=== PATIENT | female | born 1985 | race Two or more races ===

== ENCOUNTER 2025-02-11 19:26 | Inpatient (IN) | payer OTHER ==
[~2025-02-11] VITALS: Ht 154.9 cm; Wt 77.3 kg
--- NOTE | 2025-02-11 19:56 | ED.PDOC ---
History of Present Illness HPI Comments 39-year-old female with a history of insulin dependent diabetes, hypertension and Charcot joints brought in by self for evaluation of fever since this morning. Patient presents complaining of right foot pain, redness, bruising, onset yesterday. She denies any recent trauma. She states she has a history of Charcot joints in both feet and a chronic right foot deformity characterized by a masslike protrusion on the plantar surface of the right foot. Patient states that since yesterday, this area has become more painful, and she noticed a small area of black discoloration adjacent to the mass. Patient states the pain in her foot radiates up to the right groin area. Patient denies any recent trauma to her foot. She denies any sick contacts, URI symptoms, abdominal pain, nausea , vomiting, diarrhea or dysuria. Chief Complaint: Fever Time Seen by MD: 19:56 Reviewed Notes: Nurses Notes Allergies: Coded Allergies: NO KNOWN ALLERGIES (Unverified , 02/11/25) Home Meds Unable to Obtain Active Prescriptions or Reported Meds Information Source: Patient Mode of Arrival: Ambulatory Severity: Moderate Timing: Days Duration: Intermittent Past Medical History PAST MEDICAL HISTORY: DM, HTN Past Medical History (Other): Charcot joint bilateral feet Surgical History: Appendectomy NEUROPSYCHOLOGY MEDICAL CONSULTANT History: Denies all NEUROPSYCHOLOGY MEDICAL CONSULTANT Hx Family History Family History: Reviewed,noncontributory to illness Social History Smoker: Non-Smoker Alcohol: Denies ETOH Use Drugs: Denies Drug Use Lives In: Home Constitutional: reports: chills, fever; denies: diaphoresis, fatigue, malaise, sweats, weakness, others EENTM: denies: blurred vision, double vision, ear bleeding, ear discharge, ear drainage, ear pain, ear ringing, eye pain, eye redness, hearing loss, mouth pain, mouth swelling, nasal discharge, nose bleeding, nose congestion, nose pain, photophobia, tearing, throat pain, throat swelling, voice changes, others Respiratory: denies: cough, hemoptysis, orthopnea, SOB at rest, shortness of breath, SOB with excertion, stridor, wheezing, others Cardiovascular: denies: chest pain, dizzy spells, diaphoresis, Dyspnea on exertion, edema, irregular heart beat, left arm pain, lightheadedness, palpitations, PND, syncope, others Gastrointestinal: denies: abdomen distended, abdominal pain, blood streaked bowels, constipated, diarrhea, dysphagia, difficulty swallowing, hematemesis, melena, nausea, poor appetite, poor fluid intake, rectal bleeding, rectal pain, vomiting, others Genitourinary: denies: abnormal vagina bleeding, burning, dyspareunia, dysuria, flank pain, frequency, hematuria, incontinence, pain, , vagina discharge, urgency, others Neurological: denies: dizziness, fainting, headache, left sided numbness, left sided weakness, numbness, paresthesia, pre-existing deficit, right sided numbness, right sided weakness, seizure, speech problems, tingling, tremors, weakness, others Musculoskeletal: reports: muscle pain (Right leg), others (Bilateral foot pain); denies: back pain, gout, joint pain, joint swelling, muscle stiffness, neck pain Integumetry: denies: bruises, change in color, change in hair/nails, dryness, laceration, lesions, lumps, rash, wounds, others Allergic/Immunocompromised: denies: Difficulty Healing, Frequent Infections, Hives, Itching, others Hematologic/Lymphatic: denies: anemia, blood clots, easy bleeding, easy bruising, swollen glands, others Endocrine: denies: excessive hunger, excessive sweating, excessive thirst, excessive urination, flushing, intolerance to cold, intolerance to heat, unexplained weight gain, unexplained weight loss, others Psychiatric: denies: anxiety, bipolar disorder, depression, hopeless, panic disorder, schizophrenia, sleepless, suicidal, others Physical Exam General Appearance: No Apparent Distress, Obese HEENT: Other Neck: Full Range of Motion, Normal Inspection Respiratory: Lungs Clear, No Accessory Muscle Use, No Respiratory Distress, Normal Breath Sounds Cardiovascular: No JVD, Regular Rate/Rhythm Breast Exam: Deferred Gastrointestinal: Non Tender, Soft Genitalia: Deferred Pelvic: Deferred Rectal: Deferred Extremities: Other (Right foot chronic appearing plantar mass with surrounding mild erythema, tenderness and localized hematoma versus necrotic tissue at the lateral aspect. Mottling/bruising of the right medial ankle area with soft tissue tenderness.) Neurologic: Alert (Oriented x4), Normal Affect, Normal Mood, Other (Ambulatory) Cerebellar Function: NOT DONE Reflexes: NOT DONE Skin: Dry, Warm Lymphatic: NOT DONE Was a procedure done? Was a procedure done?: No Differential Dx Considerations may include: Foot cellulitis, abscess, osteomyelitis, pathologic fracture, DVT, sepsis, among others X-Ray, Labs, Meds, VS Vital Signs Date Time Temp Pulse Resp B/P (MAP) Pulse Ox O2 Delivery O2 Flow Rate FiO2 02/11/25 20:29 98.6 02/11/25 20:22 98.6 99 19 125/77 (93) 98 98.6 02/11/25 20:22 99 19 98 Room Air 02/11/25 19:35 99.5 109 18 133/82 (99) 98 99.5 Lab Test 02/11/25 19:58 02/11/25 19:37 02/11/25 19:35 Range/Units White Blood Count 9.5 4.4-10.8 10^3/uL Red Blood Count 3.95 L 4.0-5.20 10^6/uL Hemoglobin 11.6 L 12.2-16.2 g/dL Hematocrit 34.4 L 36.0-46.0 % Mean Corpuscular Volume 87.2 80.0-100.0 fL Mean Corpuscular Hemoglobin 29.4 28.0-32.0 pg Mean Corpuscular Hemoglobin Concent 33.7 32.0-36.0 g/dL Red Cell Distribution Width 13.6 11.8-14.3 % Platelet Count 275 140-450 10^3/uL Mean Platelet Volume 8.5 6.9-10.8 fL Neutrophils (%) (Auto) 87.2 H 37.0-80.0 % Lymphocytes (%) (Auto) 8.0 L 10.0-50.0 % Monocytes (%) (Auto) 4.1 0.0-12.0 % Eosinophils (%) (Auto) 0.4 0.0-7.0 % Basophils (%) (Auto) 0.3 0.0-2.0 % Neutrophils # (Auto) 8.3 1.6-8.6 10 ^3/uL Lymphocytes # (Auto) 0.8 0.4-5.4 10 ^3/uL Monocytes # (Auto) 0.4 0-1.3 10 ^3/uL Eosinophils # (Auto) 0 0-0.8 10 ^3/uL Basophils # (Auto) 0 0-0.2 10 ^3/uL Nucleated Red Blood Cells 0.0 % Prothrombin Time 10.4 9.3-11.8 sec Prothrombin Time INR 0.98 0.9-1.15 Activated Partial Thromboplast Time 28.3 24.5-34.5 SEC Sodium Level 140 136-145 mmol/L Potassium Level 4.3 3.5-5.1 mmol/L Chloride Level 107 98-107 mmol/L Carbon Dioxide Level 25 20-31 mmol/L Anion Gap 8 5-15 Blood Urea Nitrogen 27 H 9-23 mg/dL Creatinine 1.01 0.550-1.02 mg/dL Glomerular Filtration Rate Calc 72 >90 mL/min BUN/Creatinine Ratio 26.7 H 10.0-20.0 Serum Glucose 99 74-106 mg/dL Lactic Acid Level 0.9 0.4-2.0 mmol/L Calcium Level 9.0 8.7-10.4 mg/dL Total Bilirubin 0.5 0.2-1.0 mg/dL Aspartate Amino Transferase (AST) 42 H 13-40 U/L Alanine Aminotransferase (ALT) 34 7-40 U/L Alkaline Phosphatase 90 46-116 U/L B-Type Natriuretic Peptide 67.02 0-100 pg/mL Total Protein 7.8 5.7-8.2 g/dL Albumin 4.2 3.2-4.8 g/dL POC Glucose 100 70-106 mg/dl Urine Color Colorless Yellow Urine Clarity Turbid H Clear Urine pH 6.0 5.0-9.0 Urine Specific [place] 1.017 1.001-1.035 Urine Protein 2+ H Negative Urine Ketones Negative Negative Urine Blood 3+ H Negative /uL Urine Nitrite 2+ H Negative Urine Bilirubin Negative Negative Urine Urobilinogen Normal Negative mg/dL Urine Leukocyte Esterase 2+ Negative /uL Urine RBC 3 0 - 4 /hpf Urine Microscopic WBC 44 H 0-5 /HPF Urine Squamous Epithelial Cells Few <5 /hpf Urine Bacteria Few H None Seen /hpf Urine Mucus Few None Seen Urine Glucose Normal Normal mg/dL Current Medications Medications (Trade) Dose Ordered Sig/Angelina Route Start Time Stop Time Status Last Admin Vancomycin HCl 200 ml @ 200 mls/hr ONCE ONCE IV 02/11/25 20:00 02/11/25 20:59 DC 02/11/25 20:40 Cefepime HCl 50 ml @ 12.5 mls/hr Q8HR IV 02/11/25 23:30 7/5/25 02:53 Acetaminophen (Tylenol Tablet Or Capsule) 1,000 mg ONCE ONCE PO 02/11/25 20:00 02/11/25 20:01 DC 02/11/25 20:29 Ondansetron HCl (Zofran) 4 mg ONCE ONCE IV 02/11/25 20:00 02/11/25 20:01 DC 02/11/25 20:39 Sodium Chloride 2,000 ml @ 1,000 mls/hr Q2H ONCE IV 02/11/25 20:00 02/11/25 21:59 DC 02/11/25 20:29 PROCEDURE(s): RFOOT - R FOOT 3 VIEW XRAY REASON: r foot paim ORDER NUMBER(s): [id number], ACCESSION NUMBER(s): [id number] EXAM: XY R FOOT 3 VIEW XRAY INDICATION: r foot paim TECHNIQUE: 3 views of the right foot COMPARISON: None FINDINGS/IMPRESSION: Significant irregularity of the cuneiforms /midfoot with slight widening in between the 1st and 2nd metatarsal bases. Irregularity of the navicular bone with volume loss of the medial cuneiform. Severe plantar arch collapse with vertical orientation of the talus. Soft tissue swelling of the plantar aspect of the midfoot. Overall imaging findings likely compatible with chronic midfoot Charcot arthropathy and possible prior Lisfranc ligamentous injury. No abnormal osseous erosion, lucency, sclerosis to suggest osteomyelitis. EDURE(s): CXRP - CHEST PORTABLE REASON: fever ORDER NUMBER(s): [id number], ACCESSION NUMBER(s): [id number] CHEST RADIOGRAPH Indication: fever Technique: Single frontal view of the chest was obtained Comparison: None FINDINGS: Lines and Tubes: None Lungs: No focal consolidation. Pleura: No effusion. No pneumothorax. Cardiomediastinal contours: Unremarkable Bones: No acute osseous abnormality. IMPRESSION: No acute cardiopulmonary disease. EDURE(s): RLDVT - RT Lower DVT REASON: R foot pain/swelling r/o dvt ORDER NUMBER(s): [id number], ACCESSION NUMBER(s): [id number] EXAM: US RT LOWER DVT HISTORY: R foot pain/swelling r/o dvt COMPARISON: None TECHNIQUE: Duplex Doppler evaluation of the deep venous system of the right lower extremity from the common femoral vein to the popliteal vein including color Doppler and spectral/pulsed waveform analysis was performed. FINDINGS: The common femoral vein demonstrates appropriate compressibility and waveform variability. There is compressibility/patency of the great saphenous vein at the proximal thigh. The femoral vein demonstrates appropriate compressibility and waveform variability. The deep femoral vein demonstrates appropriate compressibility and waveform variability. The popliteal vein demonstrates appropriate compressibility and waveform variability. There is normal compressibility at the tibioperoneal trunk. Enlarged right inguinal lymph node m easuring up to 3.7 cm. IMPRESSION: 1. No right femoropopliteal venous thrombosis. 2. If clinical concern/symptoms persist or worsen, short-interval follow-up study is suggested. X-Ray, Labs, Meds, VS Comment 39-year-old female with a history of hypertension, insulin-dependent diabetes and bilateral foot Charcot joints complaining of fever and right foot pain Vitals remarkable for temperature 99.5, heart rate 109 Exam remarkable for right foot chronic appearing plantar mass with surrounding mild erythema, tenderness and localized hematoma versus necrotic tissue at the lateral aspect. Mottling/bruising of the right medial ankle area with soft tissue tenderness. Chest x-ray unremarkable Right foot x-ray FINDINGS/IMPRESSION: Significant irregularity of the cuneiforms /midfoot with slight widening in between the 1st and 2nd metatarsal bases. Irregularity of the navicular bone with volume loss of the medial cuneiform. Severe plantar arch collapse with vertical orientation of the talus. Soft tissue swelling of the plantar aspect of the midfoot. Overall imaging findings likely compatible with chronic midfoot Charcot arthropathy and possible prior Lisfranc ligamentous injury. No abnormal osseous erosion, lucency, sclerosis to suggest osteomyelitis. Right lower extremity ultrasound negative for DVT CBC unremarkable, basic metabolic panel remarkable for BUN 27, lactate normal, BNP normal , UA abnormal consistent with UTI Patient treated with the following in the ED: 2 L 0.9 normal saline IV bolus, cefepime 2 g IV, vancomycin IV per pharmacy, Tylenol 1 g p.o. On re-evaluation, patient is afebrile with stable vitals. Plan is to admit the patient for IV antibiotics. Time of 1ST Reevaluation: 19:49 Reevaluation 1ST: Improved Patient Education/Counseling: Diagnosis, Treatment Family Education/Counseling: No Family Present SEPSIS Sepsis Screen Physician Orders Chest Portable (02/11/25 19:46) Accucheck (02/11/25 19:46) Blood Culture (02/11/25 19:46) Cefepime 1gm/ 50ml (Maxipime 1gm/50ml) (02/11/25 23:30) Notify Md If Map <65 Or Bp<90 (02/11/25 19:46) If Map<65 Start Vasopressor (02/11/25 19:46) R Foot 3 View Xray (02/11/25 19:46) Rt Lower Dvt (02/11/25 19:46) Saline Lock (02/11/25 20:01) 2 Large Bore Ivs (20mg Or Larg (02/11/25 20:19) Vital Signs Date Time Temp Pulse Resp B/P (MAP) Pulse Ox O2 Delivery O2 Flow Rate FiO2 02/11/25 20:29 98.6 02/11/25 20:22 98.6 99 19 125/77 (93) 98 98.6 02/11/25 20:22 99 19 98 Room Air 02/11/25 19:35 99.5 109 18 133/82 (99) 98 99.5 Laboratory Tests Test 02/11/25 19:58 Lactic Acid Level 0.9 mmol/L (0.4-2.0) White Blood Count 9.5 10^3/uL (4.4-10.8) Medications Medications Dose Ordered Sig/Angelina Route Start Time Stop Time Status Last Admin Dose Admin Acetaminophen 1,000 mg ONCE ONCE PO 02/11/25 20:00 02/11/25 20:01 DC 02/11/25 20:29 Cefepime HCl 50 ml @ 12.5 mls/hr Q8HR IV 02/11/25 23:30 02/12/25 02:53 Ondansetron HCl 4 mg ONCE ONCE IV 02/11/25 20:00 02/11/25 20:01 DC 02/11/25 20:39 Sodium Chloride 2,000 ml @ 1,000 mls/hr Q2H ONCE IV 02/11/25 20:00 02/11/25 21:59 DC 02/11/25 20:29 Vancomycin HCl 200 ml @ 200 mls/hr ONCE ONCE IV 02/11/25 20:00 02/11/25 20:59 DC 02/11/25 20:40 Departure 1 Departure Time of Disposition: 22:31 Impression: Primary Impression: Cellulitis of right foot Additional Impression: UTI (urinary tract infection) Disposition: ADMITTED INPATIENT Admit to: Med Surg Condition: Guarded e-Prescriptions Unable to Obtain Active Prescriptions or Reported Meds Critical Care Note Critical Care Time?: No Stability Stability form required: No Heart Score Heart Score: Heart Score Response (Comments) Value History N/A 0 EKG N/A 0 Age N/A 0 Risk Factors N/A 0 Troponin N/A 0 Total 0 I personally scribed for TANYA JAIMES MD ([email or web address]) on 02/11/25 at 19:56. Electronically submitted by Pietro Taylor ([facility]). TANYA JAIMES MD Feb 11, 2025 19:56
[2025-02-11 20:20] LABS: Hematocrit 34.4 % (36.0-46.0); Hemoglobin 11.6 g/dL (12.2-16.2); Mean Corpuscular Hemoglobin 29.4 pg (28.0-32.0); Mean Corpuscular Volume 87.2 fL (80.0-100.0); Nucleated Red Blood Cells % 0.0 %
[2025-02-11] MEDS: ACETAMINOPHEN 500 MG TAB or CAP PO ONE (20:29)
[2025-02-11] MEDS: SODIUM CHLORIDE 0.9% 2,000 ML IV ONE (20:29)
[2025-02-11] MEDS: ONDANSETRON HCL 4 MG/2 ML VIAL IV ONE (20:39)
[2025-02-11 20:40] LABS: INR 0.98 (0.9-1.15); Partial Thromboplastin Time 28.3 SEC (24.5-34.5); Prothrombin Time 10.4 sec (9.3-11.8)
[2025-02-11] MEDS: VANCOMYCIN 1GM/200ML PM 200 ML IV ONE (20:40)
[2025-02-11 20:42] LABS: Urine Protein, UAD 2+ (Negative)
[2025-02-11 20:46] LABS: Alanine Aminotransferase 34 U/L (7-40); Albumin 4.2 g/dL (3.2-4.8); Alkaline Phosphatase 90 U/L (46-116); Anion Gap 8 (5-15); BUN/Creatinine Ratio 26.7 (10.0-20.0); Calcium 9.0 mg/dL (8.7-10.4); Carbon Dioxide 25 mmol/L (20-31); Chloride 107 mmol/L (98-107); Glucose 99 mg/dL (74-106); Potassium 4.3 mmol/L (3.5-5.1); Sodium 140 mmol/L (136-145); Total Protein 7.8 g/dL (5.7-8.2)
--- NOTE | 2025-02-11 20:46 | DVH ---
CHEST RADIOGRAPH Indication: fever Technique: Single frontal view of the chest was obtained Comparison: None FINDINGS: Lines and Tubes: None Lungs: No focal consolidation. Pleura: No effusion. No pneumothorax. Cardiomediastinal contours: Unremarkable Bones: No acute osseous abnormality. IMPRESSION: No acute cardiopulmonary disease.
[2025-02-11 20:47] LABS: Bilirubin, Total 0.5 mg/dL (0.2-1.0)
[2025-02-11 20:49] LABS: Blood Urea Nitrogen 27 mg/dL (9-23)
--- NOTE | 2025-02-11 21:03 | DVH ---
EXAM: US RT LOWER DVT HISTORY: R foot pain/swelling r/o dvt COMPARISON: None TECHNIQUE: Duplex Doppler evaluation of the deep venous system of the right lower extremity from the common femoral vein to the popliteal vein including color Doppler and spectral/pulsed waveform analys is was performed. FINDINGS: The common femoral vein demonstrates appropriate compressibility and waveform variability. There is c ompressibility/patency of the great saphenous vein at the proximal thigh. The femoral vein demonstrat es appropriate compressibility and waveform variability. The deep femoral vein demonstrates appropria te compressibility and waveform variability. The popliteal vein demonstrates appropriate compressibil ity and waveform variability. There is normal compressibility at the tibioperoneal trunk. Enlarged ri ght inguinal lymph node measuring up to 3.7 cm. IMPRESSION: 1. No right femoropopliteal venous thrombosis. 2. If clinical concern/symptoms persist or worsen, short-interval follow-up study is suggested.
--- NOTE | 2025-02-11 21:04 | DVH ---
EXAM: XY R FOOT 3 VIEW XRAY INDICATION: r foot paim TECHNIQUE: 3 views of the right foot COMPARISON: None FINDINGS/IMPRESSION: Significant irregularity of the cuneiforms /midfoot with slight widening in between the 1st and 2nd m etatarsal bases. Irregularity of the navicular bone with volume loss of the medial cuneiform. Severe plantar arch collapse with vertical orientation of the talus. Soft tissue swelling of the plantar aspect of the midfoot. Overall imaging findings likely compatible with chronic midfoot Charcot arthropathy and possible prior Lisfranc ligamentous injury. No abnormal osseous erosion, lucency, sclerosis to suggest osteomyelitis.
--- NOTE | 2025-02-11 23:53 | DVHHP2 ---
History of Present Illness Reason for Visit: Cellulitis of right foot History of Present Illness The patient is a 39-year-old female with past medical history of DM, hypertension, and Charcot joint bilateral feet who presented to [facility] ED with complaint of fever. Patient reports right foot pain, redness, bruising, and swelling. Patient has chronic right foot deformity characterized by a masslike protrusion on the plantar surface of the right foot. Patient was seen and evaluated in the ED, laboratory data shows WBC 9.5, hemoglobin 11.6, hematocrit 34.4, platelets 275, sodium 140, potassium 4.3, BUN 27, creatinine 1.01, glucose 99, BNP 67.02, AST 42, ALT 34, blood pressure 127/77, heart rate 98, temperature 98.6 F, O2 saturation 98% on room air. Urinalysis positive for urinary tract infection. Extremity venous study showed no right femoropopliteal venous thrombosis. Patient was started on IV antibiotic regimen Rocephin, please see medication orders section in the computer. On my assessment, patient denied chest pain, no headache, no dizziness, no shortness of breath, no nausea, no vomiting, no fever, no chills. Patient was admitted for further evaluation and medical management. Past Medical History DM, HTN, Charcot joint bilateral feet Past Surgical History Appendectomy Family History Reviewed, noncontributory to the management of this case. Past Social History The patient lives at home, denies smoking, alcohol or illicit drugs abuse. Review of Systems Constitutional: Yes: Fever; No: Chills, Sweats, Weakness, Malaise, Other Eyes: No: Pain, Vision change, Conjunctivae inflammation, Eyelid inflammation, Other, Redness ENT: No: Ear pain, Ear discharge, Nose pain, Nose discharge, Nose congestion, Mouth pain, Mouth swelling, Throat pain, Throat swelling, Other Respiratory: No: Cough, Dry, Shortness of breath, SOB with excertion, Wheezing, Hemoptysis, Pleuritic Pain, Sputum, Wheezing, Other Cardiovascular: No: Chest Pain, Palpitations, Orthopnea, Paroxysmal Noc. Dyspnea, Edema, Lt Headedness, Other Gastrointestinal: No: Nausea, Vomiting, Abdominal Pain, Diarrhea, Constipation, Melena, Hematochezia, Other Genitourinary: No Dysuria, No Frequency, No Incontinence, No Hematuria, No Retention, No Other Musculoskeletal: other (Bilateral foot pain); No: neck pain, shoulder pain, arm pain, back pain, hand pain, leg pain, foot pain Skin: No: Rash, Lesions, Jaundice, Bruising, Other Neurological: No: Weakness, Numbness, Incoordination, Change in speech, Confusion, Seizures, Other Allergies: Coded Allergies: NO KNOWN ALLERGIES (Unverified , 02/11/25) Medications Current Medications Medications Dose Ordered Sig/Angelina Route Start Time Stop Time Status Last Admin Dose Admin Cefepime HCl 50 ml @ 12.5 mls/hr Q8HR IV 02/11/25 23:30 Exam Vital Signs Vital Signs Date Time Temp Pulse Resp B/P (MAP) Pulse Ox O2 Delivery O2 Flow Rate FiO2 02/11/25 20:29 98.6 02/11/25 20:22 99 19 125/77 (93) 98 02/11/25 20:22 Room Air General Appearance: Alert, Oriented X3, Cooperative, No acute distress HEENT: Atraumatic, PERRLA, EOMI, Mucous membr. moist/pink Respiratory: Clear to auscultation, Normal air movement Cardiovascular: Regular rate, Normal S1, Normal S2, No murmurs Abdominal: Normal bowel sounds, Soft, No tenderness, No hepatospenomegaly, No masses Extremities: No clubbing, No cyanosis, No edema, Normal pulses, No tenderness/swelling Skin: No rashes, No breakdown, No significant lesion Neuro: Normal speech, Normal tone, Sensation intact, Cranial nerves 3-12 NL, Reflexes 2+, Other (Generalized weakness) Psych/Mental Status: Mental status NL, Mood NL Labs/Xrays Labs Test 02/11/25 19:58 02/11/25 19:37 02/11/25 19:35 Range/Units White Blood Count 9.5 4.4-10.8 10^3/uL Red Blood Count 3.95 L 4.0-5.20 10^6/uL Hemoglobin 11.6 L 12.2-16.2 g/dL Hematocrit 34.4 L 36.0-46.0 % Mean Corpuscular Volume 87.2 80.0-100.0 fL Mean Corpuscular Hemoglobin 29.4 28.0-32.0 pg Mean Corpuscular Hemoglobin Concent 33.7 32.0-36.0 g/dL Red Cell Distribution Width 13.6 11.8-14.3 % Platelet Count 275 140-450 10^3/uL Mean Platelet Volume 8.5 6.9-10.8 fL Neutrophils (%) (Auto) 87.2 H 37.0-80.0 % Lymphocytes (%) (Auto) 8.0 L 10.0-50.0 % Monocytes (%) (Auto) 4.1 0.0-12.0 % Eosinophils (%) (Auto) 0.4 0.0-7.0 % Basophils (%) (Auto) 0.3 0.0-2.0 % Neutrophils # (Auto) 8.3 1.6-8.6 10 ^3/uL Lymphocytes # (Auto) 0.8 0.4-5.4 10 ^3/uL Monocytes # (Auto) 0.4 0-1.3 10 ^3/uL Eosinophils # (Auto) 0 0-0.8 10 ^3/uL Basophils # (Auto) 0 0-0.2 10 ^3/uL Nucleated Red Blood Cells 0.0 % Prothrombin Time 10.4 9.3-11.8 sec Prothrombin Time INR 0.98 0.9-1.15 Activated Partial Thromboplast Time 28.3 24.5-34.5 SEC Sodium Level 140 136-145 mmol/L Potassium Level 4.3 3.5-5.1 mmol/L Chloride Level 107 98-107 mmol/L Carbon Dioxide Level 25 20-31 mmol/L Anion Gap 8 5-15 Blood Urea Nitrogen 27 H 9-23 mg/dL Creatinine 1.01 0.550-1.02 mg/dL Glomerular Filtration Rate Calc 72 >90 mL/min BUN/Creatinine Ratio 26.7 H 10.0-20.0 Serum Glucose 99 74-106 mg/dL Lactic Acid Level 0.9 0.4-2.0 mmol/L Calcium Level 9.0 8.7-10.4 mg/dL Total Bilirubin 0.5 0.2-1.0 mg/dL Aspartate Amino Transferase (AST) 42 H 13-40 U/L Alanine Aminotransferase (ALT) 34 7-40 U/L Alkaline Phosphatase 90 46-116 U/L B-Type Natriuretic Peptide 67.02 0-100 pg/mL Total Protein 7.8 5.7-8.2 g/dL Albumin 4.2 3.2-4.8 g/dL POC Glucose 100 70-106 mg/dl Urine Color Colorless Yellow Urine Clarity Turbid H Clear Urine pH 6.0 5.0-9.0 Urine Specific [place] 1.017 1.001-1.035 Urine Protein 2+ H Negative Urine Ketones Negative Negative Urine Blood 3+ H Negative /uL Urine Nitrite 2+ H Negative Urine Bilirubin Negative Negative Urine Urobilinogen Normal Negative mg/dL Urine Leukocyte Esterase 2+ Negative /uL Urine RBC 3 0 - 4 /hpf Urine Microscopic WBC 44 H 0-5 /HPF Urine Squamous Epithelial Cells Few <5 /hpf Urine Bacteria Few H None Seen /hpf Urine Mucus Few None Seen Urine Glucose Normal Normal mg/dL PATIENT: JHON HAMPTONT: [id number] UNIT: [id number] : 1985 LOC: ER ROOM / BED: / AGE / SEX: 39 / F ADM STATUS: REG ER SERVICE 45 ORDERING PHYSICIAN: TANYA JAIMES MD PROCEDURE(s): RLDVT - RT Lower DVT REASON: R foot pain/swelling r/o dvt ORDER NUMBER(s): [id number], ACCESSION NUMBER(s): [id number] EXAM: US RT LOWER DVT HISTORY: R foot pain/swelling r/o dvt COMPARISON: None TECHNIQUE: Duplex Doppler evaluation of the deep venous system of the right lower extremity from the common femoral vein to the popliteal vein including c olor Doppler and spectral/pulsed waveform analysis was performed. FINDINGS: The common femoral vein demonstrates appropriate compressibility and waveform variability. There is compressibility/patency of the great saphenous vein at the proximal thigh. The femoral vein demonstrates appropriate compressibility and waveform variability. The deep femoral vein demonstrates appropriate compressibility and waveform variability. The popliteal vein demonstrates appropriate compressibility and waveform variability. There is normal compressibility at the tibioperoneal trunk. Enlarged right inguinal lymph node measuring up to 3.7 cm. IMPRESSION: 1. No right femoropopliteal venous thrombosis. 2. If clinical concern/symptoms persist or worsen, short-interval follow-up study is suggested. ORDERING PHYSICIAN: TANYA JAIMES MD PROCEDURE(s): CXRP - CHEST PORTABLE REASON: fever ORDER NUMBER(s): [id number], ACCESSION NUMBER(s): [id number] CHEST RADIOGRAPH Indication: fever Technique: Single frontal view of the chest was obtained Comparison: None FINDINGS: Lines and Tubes: None Lungs: No focal consolidation. Pleura: No effusion. No pneumothorax. Cardiomediastinal contours: Unremarkable Bones: No acute osseous abnormality. IMPRESSION: No acute cardiopulmonary disease. ORDERING PHYSICIAN: TANYA JAIMES MD PROCEDURE(s): RFOOT - R FOOT 3 VIEW XRAY REASON: r foot paim ORDER NUMBER(s): [id number], ACCESSION NUMBER(s): [id number] EXAM: XY R FOOT 3 VIEW XRAY INDICATION: r foot paim TECHNIQUE: 3 views of the right foot COMPARISON: None FINDINGS/IMPRESSION: Significant irregularity of the cuneiforms/midfoot with slight widening in between the 1st and 2nd metatarsal bases. Irregularity of the navicular bone with volume loss of the medial cuneiform. Severe plantar arch collapse with vertical orientation of the talus. Soft tissue swelling of the plantar aspect of the midfoot. Overall imaging findings likely compatible with chronic midfoot Charcot arthropathy and possible prior Lisfranc ligamentous injury. No abnormal osseous erosion, lucency, sclerosis to suggest osteomyelitis. Assessment/Plan Assessment/Plan Cellulitis of right foot UTI (urinary tract infection) Generalized weakness Plan 1. Admit to med surge unit 2. Breathing treatment 3. Pain control management 4. IV antibiotic management 5. Management of fluids and electrolytes 6. Consultation for hospitalist 7. Diagnostic test extremity venous study 8. DVT prophylaxis-on SCDs 9. Repeat labs CBC, CMP in a.m. 10. Home medication reviewed and reconciled 11. Continue with current medical management 12. Treatment plan discussed with patient and RN. Patient verbalized understanding. Plan discussed with: Patient, Other (RN) Problem List: (1) Cellulitis of right foot (2) UTI (urinary tract infection) (3) Generalized weakness Date of Service: Feb 11, 2025 Billing Provider: ILA FRAZIER DNP Common Visit Codes: [id number] INP/OBS CARE (HIGH) ILA FRAZIER DNP Feb 11, 2025 23:53
[2025-02-12] VITALS (8 sets, daily range): BP systolic 92–155; BP diastolic 56–92; PULSE 75–110; RESP 17–21; TEMP 97.8–99.7; O2SAT 96–100
[2025-02-12] MEDS ORDERED: DEXTROSE (50%) 50ML SYRG IV PRN
[2025-02-12] MEDS ORDERED: MORPHINE SULFATE INJ 2 MG/ml SYRG IV PRN
[2025-02-12] MEDS ORDERED: DOCUSATE SOD 100 MG CAP PO PRN
[2025-02-12] MEDS ORDERED: NITROGLYCERIN 0.4 MG SL TAB SL PRN
[2025-02-12] MEDS ORDERED: ONDANSETRON HCL 4 MG/2 ML VIAL IV PRN
[2025-02-12] MEDS ORDERED: VANCOMYCIN PER PHARMACY 0 MG IV SCH
[2025-02-12] MEDS: CEFEPIME 1GM/ 50ML 50 ML IV SCH (02:53)
[2025-02-12] MEDS: SODIUM CHLOR 0.9% PF (SALINE LOCK) 10ML VIAL/SYR IV SCH (05:37)
[2025-02-12] MEDS: hydrALAZINE HCL 20 MG/ML VL IV PRN (05:46)
[2025-02-12] MEDS: InsuLIN REG 1unit/0.01ml Soln (100units/ml) SC SCH (05:50)
[2025-02-12] MEDS: ACCU-CHEK COMFORT CURVE STRIP VI SCH (05:51)
[2025-02-12] MEDS: ACETAMINOPHEN 325 MG TAB PO PRN (06:42)
[2025-02-12 07:45] LABS: Hematocrit 33.9 % (36.0-46.0); Hemoglobin 11.4 g/dL (12.2-16.2); Mean Corpuscular Hemoglobin 29.6 pg (28.0-32.0); Mean Corpuscular Volume 88.2 fL (80.0-100.0); Nucleated Red Blood Cells % 0.0 %
[2025-02-12 08:07] LABS: Alanine Aminotransferase 27 U/L (7-40); Albumin 4.0 g/dL (3.2-4.8); Alkaline Phosphatase 74 U/L (46-116); Calcium 9.7 mg/dL (8.7-10.4)
[2025-02-12 08:08] LABS: Anion Gap 8 (5-15); BUN/Creatinine Ratio 17.9 (10.0-20.0); Bilirubin, Total 0.6 mg/dL (0.2-1.0); Blood Urea Nitrogen 15 mg/dL (9-23); Carbon Dioxide 25 mmol/L (20-31); Glucose 106 mg/dL (74-106); Potassium 4.4 mmol/L (3.5-5.1); Sodium 142 mmol/L (136-145); Total Protein 7.4 g/dL (5.7-8.2)
[2025-02-12 08:20] LABS: Chloride 109 mmol/L (98-107)
[2025-02-12] MEDS: VANCOMYCIN 1GM/200ML PM 200 ML IV SCH (12:06)
[2025-02-12] MEDS: HYDROcodone-ACET 5/325MG TAB PO PRN (12:06)
--- NOTE | 2025-02-12 17:38 | DVHPN2 ---
Subjective 39-year-old female with a known history of diabetes mellitus type 2, hypertension, Charcot joints initially presented to hospital with a fever and right foot pain found to have right foot cellulitis currently on IV antibiotics. Reviewed: Care Plan Changes from previous H/P or p: No Changes Eyes: No Pain, No Vision change, No Conjunctivae inflammation, No Eyelid inflammation, No Other, No Redness ENT: No Ear pain, No Ear discharge, No Nose pain, No Nose discharge, No Nose congestion, No Mouth pain, No Mouth swelling, No Throat pain, No Throat swelling, No Other Cardiovascular: No Chest Pain, No Palpitations, No Orthopnea, No Paroxysmal Noc. Dyspnea, No Edema, No Lt Headedness, No Other Respiratory: No Cough, No Dry, No Shortness of breath, No SOB with excertion, No Wheezing, No Hemoptysis, No Pleuritic Pain, No Sputum, No Other Gastrointestinal: No Nausea, No Vomiting, No Abdominal Pain, No Diarrhea, No Constipation, No Melena, No Hematochezia, No Other Genitourinary: No Dysuria, No Frequency, No Incontinence, No Hematuria, No Retention, No Other Musculoskeletal: other (Bilateral foot pain); No neck pain, No shoulder pain, No arm pain, No back pain, No hand pain, No leg pain, No foot pain Skin: No Rash, No Lesions, No Jaundice, No Bruising, No Other Objective Vitals Vital Signs Date Time Temp Pulse Resp B/P (MAP) Pulse Ox O2 Delivery O2 Flow Rate FiO2 02/12/25 13:00 98.8 87 20 125/73 (90) 96 98.8 02/12/25 08:00 Room Air* 0 21 Intake/Output Intake and Output 02/12/25 07:00 Intake Total 2250 ml Balance 2250 ml Intake Oral 0 ml IV Total 2250 ml # Voids 1 Exam HEENT pupils are reactive Neck is supple CVS S1-S2 regular rate and rhythm Respiratory are clear GI positive bowel sound 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 Medications Current Medications Medications Dose Ordered Sig/Angelina Route Start Time Stop Time Status Last Admin Dose Admin Cefepime HCl 50 ml @ 12.5 mls/hr Q8HR IV 02/11/25 23:30 02/12/25 14:04 12.5 MLS/HR Vancomycin HCl 0 ml @ 0 mls/hr UD IV 02/12/25 00:00 Diagnostic Test (Pha) 1 strip ACHS 02/12/25 07:00 02/12/25 11:49 1 STRIP Insulin Human Regular ACHS SC 02/12/25 07:00 Dextrose 50 ml UD PRN IV 02/12/25 00:00 Sodium Chloride 10 ml Q8HR IV 02/12/25 06:00 02/12/25 14:08 10 ML Acetaminophen/ Hydrocodone Bitart 1 tab Q4HP PRN PO 02/12/25 00:00 02/12/25 12:06 1 TAB Ondansetron HCl 4 mg Q4HP PRN IV 02/12/25 00:00 Docusate Sodium 100 mg BIDPRN PRN PO 02/12/25 00:00 Acetaminophen 650 mg Q6HP PRN PO 02/12/25 00:00 02/12/25 06:42 650 MG Nitroglycerin 0.4 mg Q5MINP PRN SL 02/12/25 00:00 Morphine Sulfate 2 mg Q30M PRN IV 02/12/25 00:00 Hydralazine HCl 10 mg Q6HP PRN IV 02/12/25 00:00 02/12/25 05:46 10 MG Atorvastatin Calcium 20 mg HS PO 02/12/25 22:00 Vancomycin HCl 200 ml @ 160 mls/hr Q12H IV 02/12/25 12:00 02/12/25 12:06 160 MLS/HR Laboratory Results Laboratory Tests 02/12/25 06:24 Chemistry Test 02/11/25 19:58 02/12/25 06:24 Albumin 4.2 g/dL (3.2-4.8) 4.0 g/dL (3.2-4.8) Calcium Level 9.0 mg/dL (8.7-10.4) 9.7 mg/dL (8.7-10.4) Total Protein 7.8 g/dL (5.7-8.2) 7.4 g/dL (5.7-8.2) Coagulation Test 02/11/25 19:58 Prothrombin Time 10.4 sec (9.3-11.8) Prothrombin Time INR 0.98 (0.9-1.15) Activated Partial Thromboplast Time 28.3 SEC (24.5-34.5) Cardiac Markers Test 02/11/25 19:58 B-Type Natriuretic Peptide 67.02 pg/mL (0-100) LFT Test 02/11/25 19:58 02/12/25 06:24 Alanine Aminotransferase (ALT) 34 U/L (7-40) 27 U/L (7-40) Alkaline Phosphatase 90 U/L (46-116) 74 U/L (46-116) Aspartate Amino Transferase (AST) 42 U/L (13-40) H 28 U/L (13-40) Total Bilirubin 0.5 mg/dL (0.2-1.0) 0.6 mg/dL (0.2-1.0) Urinalysis Test 02/11/25 19:35 Urine Color Colorless (Yellow) Urine Clarity Turbid (Clear) H Urine pH 6.0 (5.0-9.0) Urine Specific [place] 1.017 (1.001-1.035) Urine Protein 2+ (Negative) H Urine Ketones Negative (Negative) Urine Blood 3+ /uL (Negative) H Urine Nitrite 2+ (Negative) H Urine Bilirubin Negative (Negative) Urine Urobilinogen Normal mg/dL (Negative) Urine Leukocyte Esterase 2+ /uL (Negative) Urine RBC 3 /hpf (0 - 4) Urine Microscopic WBC 44 /HPF (0-5) H Urine Squamous Epithelial Cells Few /hpf (<5) Urine Bacteria Few /hpf (None Seen) H Urine Mucus Few (None Seen) Urine Glucose Normal mg/dL (Normal) Assessment/Plan Assessment/Plan 39-year-old female with a known history of hypertension, diabetes mellitus type 2 , Charcot joint initially presented to the hospital with a right foot pain and fever found to have 1. Right foot cellulitis 2. Bilateral Charcot feet 3. Diabetes mellitus type 2 4. Hypertension -IV antibiotics, pain meds, discharge plan Plan discussed with: Patient Date of Service: Feb 12, 2025 Billing Provider: HANNAH VELAZCO MD Common Visit Codes: [id number] INP/OBS CARE(MOD) HANNAH VELAZCO MD Feb 12, 2025 17:38
[2025-02-12] MEDS: ATORVASTATIN 20 MG TAB PO SCH (21:24)
[2025-02-13] VITALS (7 sets, daily range): BP systolic 91–163; BP diastolic 61–91; PULSE 71–110; RESP 16–21; TEMP 97.7–98.9; O2SAT 96–98
[2025-02-13 07:04] LABS: Hematocrit 30.7 % (36.0-46.0); Hemoglobin 10.5 g/dL (12.2-16.2); Mean Corpuscular Hemoglobin 30.2 pg (28.0-32.0); Mean Corpuscular Volume 88.1 fL (80.0-100.0); Nucleated Red Blood Cells % 0.0 %
--- NOTE | 2025-02-13 16:45 | DVHPN2 ---
Subjective 39-year-old female with a known history of diabetes mellitus type 2, hypertension, Charcot joints initially presented to hospital with a fever and right foot pain found to have right foot cellulitis currently on IV antibiotics. Reviewed: Care Plan Changes from previous H/P or p: No Changes Eyes: No Pain, No Vision change, No Conjunctivae inflammation, No Eyelid inflammation, No Other, No Redness ENT: No Ear pain, No Ear discharge, No Nose pain, No Nose discharge, No Nose congestion, No Mouth pain, No Mouth swelling, No Throat pain, No Throat swelling, No Other Cardiovascular: No Chest Pain, No Palpitations, No Orthopnea, No Paroxysmal Noc. Dyspnea, No Edema, No Lt Headedness, No Other Respiratory: No Cough, No Dry, No Shortness of breath, No SOB with excertion, No Wheezing, No Hemoptysis, No Pleuritic Pain, No Sputum, No Other Gastrointestinal: No Nausea, No Vomiting, No Abdominal Pain, No Diarrhea, No Constipation, No Melena, No Hematochezia, No Other Genitourinary: No Dysuria, No Frequency, No Incontinence, No Hematuria, No Retention, No Other Musculoskeletal: other (Bilateral foot pain); No neck pain, No shoulder pain, No arm pain, No back pain, No hand pain, No leg pain, No foot pain Skin: No Rash, No Lesions, No Jaundice, No Bruising, No Other Objective Vitals Vital Signs Date Time Temp Pulse Resp B/P (MAP) Pulse Ox O2 Delivery O2 Flow Rate FiO2 02/13/25 16:37 98.3 83 16 118/81 (93) 98 98.3 02/13/25 08:00 Room Air* 0 21 Intake/Output Intake and Output 02/13/25 07:00 Intake Total 1610 ml Balance 1610 ml Intake Oral 1160 ml IV Total 450 ml # Voids 5 Exam HEENT pupils are reactive Neck is supple CVS S1-S2 regular rate and rhythm Respiratory are clear GI positive bowel sound 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 Medications Current Medications Medications Dose Ordered Sig/Angelina Route Start Time Stop Time Status Last Admin Dose Admin Cefepime HCl 50 ml @ 12.5 mls/hr Q8HR IV 02/11/25 23:30 02/13/25 15:17 12.5 MLS/HR Vancomycin HCl 0 ml @ 0 mls/hr UD IV 02/12/25 00:00 Diagnostic Test (Pha) 1 strip ACHS 02/12/25 07:00 02/13/25 10:35 1 STRIP Insulin Human Regular ACHS SC 02/12/25 07:00 02/13/25 10:40 4 UNITS Dextrose 50 ml UD PRN IV 02/12/25 00:00 Sodium Chloride 10 ml Q8HR IV 02/12/25 06:00 02/13/25 15:18 10 ML Acetaminophen/ Hydrocodone Bitart 1 tab Q4HP PRN PO 02/12/25 00:00 02/12/25 12:06 1 TAB Ondansetron HCl 4 mg Q4HP PRN IV 02/12/25 00:00 Docusate Sodium 100 mg BIDPRN PRN PO 02/12/25 00:00 Acetaminophen 650 mg Q6HP PRN PO 02/12/25 00:00 02/12/25 18:38 650 MG Nitroglycerin 0.4 mg Q5MINP PRN SL 02/12/25 00:00 Morphine Sulfate 2 mg Q30M PRN IV 02/12/25 00:00 Hydralazine HCl 10 mg Q6HP PRN IV 02/12/25 00:00 02/12/25 05:46 10 MG Atorvastatin Calcium 20 mg HS PO 02/12/25 22:00 02/12/25 21:24 20 MG Vancomycin HCl 200 ml @ 160 mls/hr Q12H IV 02/12/25 12:00 02/13/25 12:56 160 MLS/HR Laboratory Results Laboratory Tests 02/12/25 06:24 02/13/25 06:07 Urinalysis Test 02/11/25 19:35 Urine Color Colorless (Yellow) Urine Clarity Turbid (Clear) H Urine pH 6.0 (5.0-9.0) Urine Specific [place] 1.017 (1.001-1.035) Urine Protein 2+ (Negative) H Urine Ketones Negative (Negative) Urine Blood 3+ /uL (Negative) H Urine Nitrite 2+ (Negative) H Urine Bilirubin Negative (Negative) Urine Urobilinogen Normal mg/dL (Negative) Urine Leukocyte Esterase 2+ /uL (Negative) Urine RBC 3 /hpf (0 - 4) Urine Microscopic WBC 44 /HPF (0-5) H Urine Squamous Epithelial Cells Few /hpf (<5) Urine Bacteria Few /hpf (None Seen) H Urine Mucus Few (None Seen) Urine Glucose Normal mg/dL (Normal) Microbiology Microbiology Date/Time Source Procedure Growth Status 02/11/25 19:58 Blood Blood Culture - Preliminary NO GROWTH AFTER 24 HOURS OF INCUBATION. Resulted Assessment/Plan Assessment/Plan 39-year-old female with a known history of hypertension, diabetes mellitus type 2 , Charcot joint initially presented to the hospital with a right foot pain and fever found to have 1. Right foot cellulitis 2. Bilateral Charcot feet 3. Diabetes mellitus type 2 4. Hypertension -IV antibiotics, pain meds, discharge plan once cleared-by Podiatry Services. Follow up blood cultures. Plan discussed with: Patient My Orders Orders - HANNAH VELAZCO MD Procedure Category Date Status Time *Podiatry Consult CONS 02/13/25 Alok Posey(Dv) 14:18 Blood Culture CHEO 02/13/25 In Process 14:18 Date of Service: Feb 13, 2025 Billing Provider: HANNAH VELAZCO MD Common Visit Codes: [id number] INP/OBS CARE(MOD) HANNAH VELAZCO MD Feb 13, 2025 16:45
[2025-02-14] VITALS (7 sets, daily range): BP systolic 120–155; BP diastolic 75–84; PULSE 63–76; RESP 16–18; TEMP 97.4–98.7; O2SAT 96–99
[2025-02-14 06:13] LABS: Hematocrit 33.0 % (36.0-46.0); Hemoglobin 11.0 g/dL (12.2-16.2); Mean Corpuscular Hemoglobin 29.7 pg (28.0-32.0); Mean Corpuscular Volume 89.0 fL (80.0-100.0); Nucleated Red Blood Cells % 0.0 %
--- NOTE | 2025-02-14 13:21 | DVHINCON2 ---
Date Seen: Feb 14, 2025 Reason for Consultation Right foot abscess History of Present Illness The patient is a 39-year-old female with past medical history of DM, hypertension, and Charcot joint bilateral feet who presented to [facility] ED with complaint of fever. Patient reports right foot pain, redness, bruising, and swelling. Patient has chronic right foot deformity characterized by a masslike protrusion on the plantar surface of the right foot. Patient was seen and evaluated in the ED, laboratory data shows WBC 9.5, hemoglobin 11.6, hematocrit 34.4, platelets 275, sodium 140, potassium 4.3, BUN 27, creatinine 1.01, glucose 99, BNP 67.02, AST 42, ALT 34, blood pressure 127/77, heart rate 98, temperature 98.6 F, O2 saturation 98% on room air. Urinalysis positive for urinary tract infection. Extremity venous study showed no right femoropopliteal venous thrombosis. Patient was started on IV antibiotic regimen Rocephin, please see medication orders section in the computer. On my assessment, patient denied chest pain, no headache, no dizziness, no shortness of breath, no nausea, no vomiting, no fever, no chills. Patient was admitted for further evaluation and medical management. Past Medical History See H&P Past Surgical History See H&P Family History: Patient reports no known family medical history. Allergies: Coded Allergies: NO KNOWN ALLERGIES (Unverified , 02/11/25) Home Meds Unable to Obtain Active Prescriptions or Reported Meds Vital Signs Vital Signs Date Time Temp Pulse Resp B/P (MAP) Pulse Ox O2 Delivery O2 Flow Rate FiO2 02/14/25 12:43 97.9 68 16 129/79 (96) 97 97.9 02/14/25 08:00 Room Air* 0 21 Physical Exam Dermatological: Skin is dry with mild erythema and some maceration around the wound site No gross deformities noted Mild non-pitting edema present bilaterally Area of fluctuance right plantar foot Vascular: Dorsalis pedis and posterior tibial pulses are 1+ bilaterally Capillary refill is under 2 seconds Skin temperature is warm bilaterally Neurologic: Protective sensation is absent on the plantar forefoot bilaterally Monofilament testing reveals decreased sensation in multiple plantar sites Musculoskeletal: Range of motion at the ankle and MTP joints is within normal limits. Strength is 5/5 in all tested muscle groups. Gait is antalgic due to offloading of the affected limb. Labs/Diagnostic Data Labs Test 02/14/25 11:09 02/14/25 05:34 02/13/25 10:52 02/12/25 06:24 Range/Units POC Glucose 138 H 70-106 mg/dl White Blood Count 5.4 4.4-10.8 10^3/uL Red Blood Count 3.71 L 4.0-5.20 10^6/uL Hemoglobin 11.0 L 12.2-16.2 g/dL Hematocrit 33.0 L 36.0-46.0 % Mean Corpuscular Volume 89.0 80.0-100.0 fL Mean Corpuscular Hemoglobin 29.7 28.0-32.0 pg Mean Corpuscular Hemoglobin Concent 33.3 32.0-36.0 g/dL Red Cell Distribution Width 13.2 11.8-14.3 % Platelet Count 313 140-450 10^3/uL Mean Platelet Volume 8.1 6.9-10.8 fL Neutrophils (%) (Auto) 67.0 37.0-80.0 % Lymphocytes (%) (Auto) 23.0 10.0-50.0 % Monocytes (%) (Auto) 7.4 0.0-12.0 % Eosinophils (%) (Auto) 2.0 0.0-7.0 % Basophils (%) (Auto) 0.6 0.0-2.0 % Neutrophils # (Auto) 3.6 1.6-8.6 10 ^3/uL Lymphocytes # (Auto) 1.3 0.4-5.4 10 ^3/uL Monocytes # (Auto) 0.4 0-1.3 10 ^3/uL Eosinophils # (Auto) 0.1 0-0.8 10 ^3/uL Basophils # (Auto) 0 0-0.2 10 ^3/uL Nucleated Red Blood Cells 0.0 % Creatinine 0.88 0.550-1.02 mg/dL Glomerular Filtration Rate Calc 85 >90 mL/min Vancomycin Level Trough 13.1 H 5-10 ug/mL Sodium Level 142 136-145 mmol/L Potassium Level 4.4 3.5-5.1 mmol/L Chloride Level 109 H 98-107 mmol/L Carbon Dioxide Level 25 20-31 mmol/L Anion Gap 8 5-15 Blood Urea Nitrogen 15 # 9-23 mg/dL BUN/Creatinine Ratio 17.9 10.0-20.0 Serum Glucose 106 74-106 mg/dL Calcium Level 9.7 8.7-10.4 mg/dL Total Bilirubin 0.6 0.2-1.0 mg/dL Aspartate Amino Transferase (AST) 28 13-40 U/L Alanine Aminotransferase (ALT) 27 7-40 U/L Alkaline Phosphatase 74 46-116 U/L Total Protein 7.4 5.7-8.2 g/dL Albumin 4.0 3.2-4.8 g/dL Test 02/11/25 19:58 02/11/25 19:35 Range/Units Prothrombin Time 10.4 9.3-11.8 sec Prothrombin Time INR 0.98 0.9-1.15 Activated Partial Thromboplast Time 28.3 24.5-34.5 SEC Lactic Acid Level 0.9 0.4-2.0 mmol/L B-Type Natriuretic Peptide 67.02 0-100 pg/mL Urine Color Colorless Yellow Urine Clarity Turbid H Clear Urine pH 6.0 5.0-9.0 Urine Specific [place] 1.017 1.001-1.035 Urine Protein 2+ H Negative Urine Ketones Negative Negative Urine Blood 3+ H Negative /uL Urine Nitrite 2+ H Negative Urine Bilirubin Negative Negative Urine Urobilinogen Normal Negative mg/dL Urine Leukocyte Esterase 2+ Negative /uL Urine RBC 3 0 - 4 /hpf Urine Microscopic WBC 44 H 0-5 /HPF Urine Squamous Epithelial Cells Few <5 /hpf Urine Bacteria Few H None Seen /hpf Urine Mucus Few None Seen Urine Glucose Normal Normal mg/dL Microbiology Date/Time Source Procedure Growth Status 02/11/25 19:58 Blood Blood Culture - Preliminary NO GROWTH AFTER 48 HOURS OF INCUBATION. Resulted Problems(with codes): (1) UTI (urinary tract infection) (2) Cellulitis of right foot (3) Generalized weakness Plan/Recommendation ASSESSMENT: Patient is a 39 year old seen on the floor for a worsening ulcer PLAN: - The patients chart was reviewed, clinical findings were discussed with the patient, the etiologies of the conditions were discussed in detail, and a treatm ent plan was agreed to at this time, with both oral and written instructions provided. - reviewed advanced imaging - with concern of area of fluctuance and abscess recommend that we take her to the OR for an incision and drainage with cultures - we will hold off on the MRI at this point - we will get deep cultures - we will take to surgery today All questions were answered and concerns addressed to the patient's satisfaction. The patient was given the phone number to the clinic and was told how to make contact with the clinic should any concerns or questions arise. Patient understands that if any questions or concerns arise prior to the next appointment, we should be contacted immediately. FOLLOW-UP: Continue to follow while inpatient Plan discussed with: Patient Date of Service: Feb 14, 2025 Billing Provider: LAURYN TREJO DPM Common Visit Codes: CONSULT ONLY Consultation Codes: [id number] CONSULT <80MIN LAURYN TREJO DPM Feb 14, 2025 13:21
[2025-02-14] MEDS: BUPIVACAINE 0.5% P/F INJ 10 ML VIAL ONE (13:43)
[2025-02-14] MEDS: LIDOCAINE 1% HCL (LOCAL ANESTH.) INJ 20ML MDV ONE (14:07)
--- NOTE | 2025-02-14 14:25 | DVHOP2 ---
Operative Report - 2 Report Details Date: 02/14/25 Preop Diagnosis: 1. Right foot abscess 2. Right foot cellulitis 3. Right foot charcot foot 4. Right foot pain Postop Diagnosis: Same as preop Surgeon: Lauryn Trejo MD Anesthesiologist: None Anesthesia: Local Consent: The patient was informed of the risks and benefits of the procedure. These include but are not limited to complications of anesthesia, postoperative infection, incomplete relief of symptoms, recurrence of symptoms, damage to blood vessels, nerves and tendons, deep venous thrombosis, pulmonary embolism and possible need for repeat surgery in the future. Complications: None Estimated Blood Loss: Minimal Fluids: Her orders Findings: Consistent with diagnosis Indications for Surgery: Worsening area of fluctuance Name of Procedure Performed 1. Right foot I&D (00967) Procedure Details Procedure Details: PRE-PROCEDURE INFORMATION: In the pre-op holding area, the extremity to be operated on was clearly marked and the patient verified correct laterality of the marking. The patient was transferred to the OR table and placed in a supine position. A timeout was performed in which identification of the correct patient, procedure, location, and materials was done. The right foot and leg were prepped and draped in normal sterile fashion. DESCRIPTION OF PROCEDURE: Attention was directed to the right where area of fluctuance was noted. An incision was made over this area and was deepened through blunt dissection. The incision was deepened to the level of abscess and bone. Care was taken to the dissection to avoid any neurovascular and tendinous structures. The incision was deepened to the bone, and the abscess appeared to be purulent fluid consistent with pus. The cortices of the bone was then removed with rongeur an all necrotic tissue. After the abscess was drained, the area was irrigated with 3 L normal saline using cysto tubing. Deep cultures were then obtained from the wound. The area was then inspected and any areas of tracking, especially along the tendons were also drained. The wound was packed with Betadine-soaked gauze and we will need to be closed at a later date. POSTOPERATIVE INFORMATION: The patient tolerated the above noted procedure and anesthesia well and was transferred to the PACU with vital signs stable, and vascular status intact with capillary refill intact to all digits. Deep cultures were taken. Patient will return to the floor continue IV antibiotics. Patient will need subsequent washout and possible closure in the future Condition Good Disposition Still a Patient LAURYN TREJO DPM Feb 14, 2025 14:25
--- NOTE | 2025-02-14 19:15 | DVHPN2 ---
Subjective 39-year-old female with a known history of diabetes mellitus type 2, hypertension, Charcot joints initially presented to hospital with a fever and right foot pain found to have right foot cellulitis currently on IV antibiotics. Patient is currently scheduled for I and D of the right foot with a podiatry tomorrow. Reviewed: Care Plan Changes from previous H/P or p: No Changes Eyes: No Pain, No Vision change, No Conjunctivae inflammation, No Eyelid inflammation, No Other, No Redness ENT: No Ear pain, No Ear discharge, No Nose pain, No Nose discharge, No Nose congestion, No Mouth pain, No Mouth swelling, No Throat pain, No Throat swelling, No Other Cardiovascular: No Chest Pain, No Palpitations, No Orthopnea, No Paroxysmal Noc. Dyspnea, No Edema, No Lt Headedness, No Other Respiratory: No Cough, No Dry, No Shortness of breath, No SOB with excertion, No Wheezing, No Hemoptysis, No Pleuritic Pain, No Sputum, No Other Gastrointestinal: No Nausea, No Vomiting, No Abdominal Pain, No Diarrhea, No Constipation, No Melena, No Hematochezia, No Other Genitourinary: No Dysuria, No Frequency, No Incontinence, No Hematuria, No Retention, No Other Musculoskeletal: other (Bilateral foot pain); No neck pain, No shoulder pain, No arm pain, No back pain, No hand pain, No leg pain, No foot pain Skin: No Rash, No Lesions, No Jaundice, No Bruising, No Other Objective Vitals Vital Signs Date Time Temp Pulse Resp B/P (MAP) Pulse Ox O2 Delivery O2 Flow Rate FiO2 02/14/25 17:00 98.1 68 16 148/82 (104) 98 98.1 02/14/25 08:00 Room Air* 0 21 Intake/Output Intake and Output 02/14/25 07:00 Intake Total 1350 ml Balance 1350 ml Intake Oral 900 ml IV Total 450 ml # Voids 5 # Bowel Movements 1 Exam HEENT pupils are reactive Neck is supple CVS S1-S2 regular rate and rhythm Respiratory are clear GI positive bowel sound Extremity no edema LPTA no motor deficit Medications Current Medications Medications Dose Ordered Sig/Angelina Route Start Time Stop Time Status Last Admin Dose Admin Cefepime HCl 50 ml @ 12.5 mls/hr Q8HR IV 02/11/25 23:30 02/14/25 15:32 12.5 MLS/HR Vancomycin HCl 0 ml @ 0 mls/hr UD IV 02/12/25 00:00 Diagnostic Test (Pha) 1 strip ACHS 02/12/25 07:00 02/14/25 17:00 1 STRIP Insulin Human Regular ACHS SC 02/12/25 07:00 02/14/25 18:01 2 UNITS Dextrose 50 ml UD PRN IV 02/12/25 00:00 Sodium Chloride 10 ml Q8HR IV 02/12/25 06:00 02/14/25 14:00 10 ML Acetaminophen/ Hydrocodone Bitart 1 tab Q4HP PRN PO 02/12/25 00:00 02/12/25 12:06 1 TAB Ondansetron HCl 4 mg Q4HP PRN IV 02/12/25 00:00 Docusate Sodium 100 mg BIDPRN PRN PO 02/12/25 00:00 Acetaminophen 650 mg Q6HP PRN PO 02/12/25 00:00 02/14/25 05:54 650 MG Nitroglycerin 0.4 mg Q5MINP PRN SL 02/12/25 00:00 Morphine Sulfate 2 mg Q30M PRN IV 02/12/25 00:00 Hydralazine HCl 10 mg Q6HP PRN IV 02/12/25 00:00 02/12/25 05:46 10 MG Atorvastatin Calcium 20 mg HS PO 02/12/25 22:00 02/13/25 21:30 20 MG Vancomycin HCl 200 ml @ 160 mls/hr Q12H IV 02/12/25 12:00 02/14/25 12:25 160 MLS/HR Laboratory Results Laboratory Tests 02/12/25 06:24 02/14/25 05:34 Urinalysis Test 02/11/25 19:35 Urine Color Colorless (Yellow) Urine Clarity Turbid (Clear) H Urine pH 6.0 (5.0-9.0) Urine Specific [place] 1.017 (1.001-1.035) Urine Protein 2+ (Negative) H Urine Ketones Negative (Negative) Urine Blood 3+ /uL (Negative) H Urine Nitrite 2+ (Negative) H Urine Bilirubin Negative (Negative) Urine Urobilinogen Normal mg/dL (Negative) Urine Leukocyte Esterase 2+ /uL (Negative) Urine RBC 3 /hpf (0 - 4) Urine Microscopic WBC 44 /HPF (0-5) H Urine Squamous Epithelial Cells Few /hpf (<5) Urine Bacteria Few /hpf (None Seen) H Urine Mucus Few (None Seen) Urine Glucose Normal mg/dL (Normal) Microbiology Microbiology Date/Time Source Procedure Growth Status 02/13/25 15:52 Blood Blood Culture - Preliminary NO GROWTH AFTER 24 HOURS OF INCUBATION. Resulted Assessment/Plan Assessment/Plan 39-year-old female with a known history of hypertension, diabetes mellitus type 2 , Charcot joint initially presented to the hospital with a right foot pain and fever found to have 1. Right foot cellulitis 2. Bilateral Charcot feet 3. Diabetes mellitus type 2 4. Hypertension -IV antibiotics, pain meds, discharge plan once cleared-by Podiatry Services. Follow up blood cultures. Plan discussed with: Patient Date of Service: Feb 14, 2025 Billing Provider: HANNAH VELAZCO MD Common Visit Codes: [id number] INP/OBS CARE(MOD) HANNAH VELAZCO MD Feb 14, 2025 19:15
--- NOTE | 2025-02-14 21:14 | DVH ---
EXAM: MRI MRI R FOOT WO CONTRAST INDICATION: r/o OM TECHNIQUE: Multiplanar and multisequence MR imaging of the right ankle was performed in the absence o f gadolinium contrast. COMPARISON: None FINDINGS: There is a soft tissue wound along the mid- plantar surface of the foot with subcutaneous abscess ed suring 4.2 X 1.9 cm. There is extensive osteomyelitis involving the cuboid with osseus erosions. There is extensive osseus destruction of the midfoot with sever midfoot sag. There is erosion with ma rrow edema involving all the cuneiforms. There is widening of the 1st and 2nd metacarpal interdigital space. The metatarsal bones appear degenerative proximately without significant marrow edema or replacement. There is patchy marrow edema within the tallus. There is diastasis of the talar naviculare joint. IMPRESSION: 1. Large plantar wound with 4.2 cm subcutaneous abscess with would extending into the midfoot with as sociated diffuse osteomyelitis of the cuboid 2. Severe charcot destruction of the mid foot with midfoot sag. Patchy marrow edema within the tallus and throughout the erosed cuneiforms which may be related to charcot changes , though osteomyelitis is not excluded. 3. Diastasis of the 1st and 2nd metatarsals which may be related to charcot- chronic lisfranc injury
[2025-02-15] VITALS (7 sets, daily range): BP systolic 118–155; BP diastolic 64–85; PULSE 68–80; RESP 16–18; TEMP 97.5–98.5; O2SAT 94–99
--- NOTE | 2025-02-15 12:24 | DVHPN2 ---
Subjective The patient is a 39-year-old female with past medical history of DM, hypertension, and Charcot joint bilateral feet who presented to [facility] ED with complaint of fever. Patient reports right foot pain, redness, bruising, and swelling. Patient has chronic right foot deformity characterized by a masslike protrusion on the plantar surface of the right foot. Patient was seen and evaluated in the ED, laboratory data shows WBC 9.5, hemoglobin 11.6, hematocrit 34.4, platelets 275, sodium 140, potassium 4.3, BUN 27, creatinine 1.01, glucose 99, BNP 67.02, AST 42, ALT 34, blood pressure 127/77, heart rate 98, temperature 98.6 F, O2 saturation 98% on room air. Urinalysis positive for urinary tract infection. Extremity venous study showed no right femoropopliteal venous thrombosis. Patient was started on IV antibiotic regimen Rocephin, please see medication orders section in the computer. On my assessment, patient denied chest pain, no headache, no dizziness, no shortness of breath, no nausea, no vomiting, no fever, no chills. Patient was admitted for further evaluation and medical management. Reviewed: Care Plan Changes from previous H/P or p: No Changes Eyes: No Pain, No Vision change, No Conjunctivae inflammation, No Eyelid inflammation, No Other, No Redness ENT: No Ear pain, No Ear discharge, No Nose pain, No Nose discharge, No Nose congestion, No Mouth pain, No Mouth swelling, No Throat pain, No Throat swelling, No Other Cardiovascular: No Chest Pain, No Palpitations, No Orthopnea, No Paroxysmal Noc. Dyspnea, No Edema, No Lt Headedness, No Other Respiratory: No Cough, No Dry, No Shortness of breath, No SOB with excertion, No Wheezing, No Hemoptysis, No Pleuritic Pain, No Sputum, No Other Gastrointestinal: No Nausea, No Vomiting, No Abdominal Pain, No Diarrhea, No Constipation, No Melena, No Hematochezia, No Other Genitourinary: No Dysuria, No Frequency, No Incontinence, No Hematuria, No Retention, No Other Musculoskeletal: other (Bilateral foot pain); No neck pain, No shoulder pain, No arm pain, No back pain, No hand pain, No leg pain, No foot pain Skin: No Rash, No Lesions, No Jaundice, No Bruising, No Other Objective Vitals Vital Signs Date Time Temp Pulse Resp B/P (MAP) Pulse Ox O2 Delivery O2 Flow Rate FiO2 02/15/25 05:23 98.1 68 16 118/64 (82) 99 98.1 02/14/25 20:00 Room Air* 0 21 Intake/Output Intake and Output 02/15/25 07:00 Intake Total 1600 ml Output Total 0 ml Balance 1600 ml Intake Oral 1075 ml IV Total 525 ml Output Stool Total 0 ml # Voids 4 Exam Dermatological: Skin is dry with mild erythema and some maceration around the wound site No gross deformities noted Mild non-pitting edema present bilaterally Area of fluctuance right plantar foot Vascular: Dorsalis pedis and posterior tibial pulses are 1+ bilaterally Capillary refill is under 2 seconds Skin temperature is warm bilaterally Neurologic: Protective sensation is absent on the plantar forefoot bilaterally Monofilament testing reveals decreased sensation in multiple plantar sites Musculoskeletal: Range of motion at the ankle and MTP joints is within normal limits. Strength is 5/5 in all tested muscle groups. Gait is antalgic due to offloading of the affected limb. Medications Current Medications Medications Dose Ordered Sig/Angelina Route Start Time Stop Time Status Last Admin Dose Admin Cefepime HCl 50 ml @ 12.5 mls/hr Q8HR IV 02/11/25 23:30 02/15/25 06:04 12.5 MLS/HR Vancomycin HCl 0 ml @ 0 mls/hr UD IV 02/12/25 00:00 Diagnostic Test (Pha) 1 strip ACHS 02/12/25 07:00 02/15/25 11:43 1 STRIP Insulin Human Regular ACHS SC 02/12/25 07:00 02/15/25 06:12 4 UNITS Dextrose 50 ml UD PRN IV 02/12/25 00:00 Sodium Chloride 10 ml Q8HR IV 02/12/25 06:00 02/15/25 06:04 10 ML Acetaminophen/ Hydrocodone Bitart 1 tab Q4HP PRN PO 02/12/25 00:00 02/12/25 12:06 1 TAB Ondansetron HCl 4 mg Q4HP PRN IV 02/12/25 00:00 Docusate Sodium 100 mg BIDPRN PRN PO 02/12/25 00:00 Acetaminophen 650 mg Q6HP PRN PO 02/12/25 00:00 02/14/25 05:54 650 MG Nitroglycerin 0.4 mg Q5MINP PRN SL 02/12/25 00:00 Morphine Sulfate 2 mg Q30M PRN IV 02/12/25 00:00 Hydralazine HCl 10 mg Q6HP PRN IV 02/12/25 00:00 02/12/25 05:46 10 MG Atorvastatin Calcium 20 mg HS PO 02/12/25 22:00 02/14/25 22:32 20 MG Vancomycin HCl 200 ml @ 160 mls/hr Q12H IV 02/12/25 12:00 02/15/25 00:13 160 MLS/HR Laboratory Results Laboratory Tests 02/12/25 06:24 02/14/25 05:34 02/15/25 11:13 Urinalysis Test 02/11/25 19:35 Urine Color Colorless (Yellow) Urine Clarity Turbid (Clear) H Urine pH 6.0 (5.0-9.0) Urine Specific [place] 1.017 (1.001-1.035) Urine Protein 2+ (Negative) H Urine Ketones Negative (Negative) Urine Blood 3+ /uL (Negative) H Urine Nitrite 2+ (Negative) H Urine Bilirubin Negative (Negative) Urine Urobilinogen Normal mg/dL (Negative) Urine Leukocyte Esterase 2+ /uL (Negative) Urine RBC 3 /hpf (0 - 4) Urine Microscopic WBC 44 /HPF (0-5) H Urine Squamous Epithelial Cells Few /hpf (<5) Urine Bacteria Few /hpf (None Seen) H Urine Mucus Few (None Seen) Urine Glucose Normal mg/dL (Normal) Microbiology Microbiology Date/Time Source Procedure Growth Status 02/14/25 14:20 Foot Right Gram Stain Pending Resulted 02/14/25 14:20 Foot Right Anaerobic Culture - Preliminary Resulted 02/14/25 14:20 Foot Right Aerobic Culture Pending Resulted 02/13/25 15:52 Blood Blood Culture - Preliminary NO GROWTH AFTER 24 HOURS OF INCUBATION. Resulted Assessment/Plan Assessment/Plan ASSESSMENT: Patient is a 39 year old seen on the floor follow up s/p foot I&D PLAN: - The patients chart was reviewed, clinical findings were discussed with the patient, the etiologies of the conditions were discussed in detail, and a treatment plan was agreed to at this time, with both oral and written instructions provided. - reviewed advanced imaging - reviewed all of the labs and pathology - discussed plan is to perform a subsequent incision and drainage - patient will be NPO at midnight - take her to the OR tomorrow - it was determined that multiple I&Ds will be necessary to save the limb - evaluted patients both feet and there is excessive dryness and onychomycosis that patient would benefit from routine foot care as an outpatient - can weightbear as tolerated in postoperative shoe All questions were answered and concerns addressed to the patient's satisfaction. The patient was given the phone number to the clinic and was told how to make contact with the clinic should any concerns or questions arise. Patient understands that if any questions or concerns arise prior to the next appointment, we should be contacted immediately. FOLLOW-UP: Continue to follow while inpatient Plan discussed with: Patient My Orders Orders - LAURYN TREJO DPM Procedure Category Date Status Time Obtain Consent For: ORDERS 02/14/25 Transmitted 13:21 Anaerobic Culture CHEO 02/14/25 In Process 14:24 Gram Stain CHEO 02/14/25 In Process 14:24 Routine Bacterial CHEO 02/14/25 In Process Culture 14:24 Npo After Midnight CHRISTINA 02/15/25 Verified 12:22 Npo (Nothing By DIET 02/16/25 Verified Mouth) Diet Breakfast Obtain Consent For: ORDERS 02/15/25 Verified 12:22 Problem List: (1) UTI (urinary tract infection) (2) Cellulitis of right foot (3) Generalized weakness Date of Service: Feb 15, 2025 Billing Provider: LAURYN TREJO DPM Common Visit Codes: [id number] INP/OBS CARE(HIGH) LAURYN TREJO DPM Feb 15, 2025 12:24
[2025-02-15] MEDS ORDERED: DEXTROSE (50%) 50ML SYRG IV PRN (15:00)
[2025-02-15] MEDS: ACCU-CHEK COMFORT CURVE STRIP VI SCH (16:45)
[2025-02-15] MEDS: InsuLIN REG 1unit/0.01ml Soln (100units/ml) SC SCH (16:45)
--- NOTE | 2025-02-15 18:31 | DVHPN2 ---
Subjective 39-year-old female with a known history of diabetes mellitus type 2, hypertension, Charcot joints initially presented to hospital with a fever and right foot pain found to have right foot cellulitis currently on IV antibiotics. Patient is currently scheduled for I and D of the right foot with a podiatry tomorrow. Reviewed: Care Plan Changes from previous H/P or p: No Changes Eyes: No Pain, No Vision change, No Conjunctivae inflammation, No Eyelid inflammation, No Other, No Redness ENT: No Ear pain, No Ear discharge, No Nose pain, No Nose discharge, No Nose congestion, No Mouth pain, No Mouth swelling, No Throat pain, No Throat swelling, No Other Cardiovascular: No Chest Pain, No Palpitations, No Orthopnea, No Paroxysmal Noc. Dyspnea, No Edema, No Lt Headedness, No Other Respiratory: No Cough, No Dry, No Shortness of breath, No SOB with excertion, No Wheezing, No Hemoptysis, No Pleuritic Pain, No Sputum, No Other Gastrointestinal: No Nausea, No Vomiting, No Abdominal Pain, No Diarrhea, No Constipation, No Melena, No Hematochezia, No Other Genitourinary: No Dysuria, No Frequency, No Incontinence, No Hematuria, No Retention, No Other Musculoskeletal: other (Bilateral foot pain); No neck pain, No shoulder pain, No arm pain, No back pain, No hand pain, No leg pain, No foot pain Skin: No Rash, No Lesions, No Jaundice, No Bruising, No Other Objective Vitals Vital Signs Date Time Temp Pulse Resp B/P (MAP) Pulse Ox O2 Delivery O2 Flow Rate FiO2 02/15/25 17:00 98.4 80 17 120/73 (89) 97 98.4 02/15/25 08:00 Room Air* 0 21 Intake/Output Intake and Output 02/15/25 07:00 Intake Total 1600 ml Output Total 0 ml Balance 1600 ml Intake Oral 1075 ml IV Total 525 ml Output Stool Total 0 ml # Voids 4 Exam HEENT pupils are reactive Neck is supple CVS S1-S2 regular rate and rhythm Respiratory are clear GI positive bowel sound Extremity no edema 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 Medications Current Medications Medications Dose Ordered Sig/Angelina Route Start Time Stop Time Status Last Admin Dose Admin Cefepime HCl 50 ml @ 12.5 mls/hr Q8HR IV 02/11/25 23:30 02/15/25 14:40 12.5 MLS/HR Vancomycin HCl 0 ml @ 0 mls/hr UD IV 02/12/25 00:00 Dextrose 50 ml UD PRN IV 02/12/25 00:00 Cancel Sodium Chloride 10 ml Q8HR IV 02/12/25 06:00 02/15/25 14:22 10 ML Acetaminophen/ Hydrocodone Bitart 1 tab Q4HP PRN PO 02/12/25 00:00 02/12/25 12:06 1 TAB Ondansetron HCl 4 mg Q4HP PRN IV 02/12/25 00:00 Docusate Sodium 100 mg BIDPRN PRN PO 02/12/25 00:00 Acetaminophen 650 mg Q6HP PRN PO 02/12/25 00:00 02/14/25 05:54 650 MG Nitroglycerin 0.4 mg Q5MINP PRN SL 02/12/25 00:00 Morphine Sulfate 2 mg Q30M PRN IV 02/12/25 00:00 Hydralazine HCl 10 mg Q6HP PRN IV 02/12/25 00:00 02/12/25 05:46 10 MG Atorvastatin Calcium 20 mg HS PO 02/12/25 22:00 02/14/25 22:32 20 MG Vancomycin HCl 200 ml @ 160 mls/hr Q12H IV 02/12/25 12:00 02/15/25 12:56 160 MLS/HR Diagnostic Test (Pha) 1 strip IQ4HR 02/15/25 16:00 02/15/25 16:45 1 STRIP Insulin Human Regular IQ4HR SC 02/15/25 16:00 02/15/25 16:45 4 UNITS Dextrose 50 ml UD PRN IV 02/15/25 15:00 Laboratory Results Laboratory Tests 02/12/25 06:24 02/14/25 05:34 02/15/25 11:13 Urinalysis Test 02/11/25 19:35 Urine Color Colorless (Yellow) Urine Clarity Turbid (Clear) H Urine pH 6.0 (5.0-9.0) Urine Specific [place] 1.017 (1.001-1.035) Urine Protein 2+ (Negative) H Urine Ketones Negative (Negative) Urine Blood 3+ /uL (Negative) H Urine Nitrite 2+ (Negative) H Urine Bilirubin Negative (Negative) Urine Urobilinogen Normal mg/dL (Negative) Urine Leukocyte Esterase 2+ /uL (Negative) Urine RBC 3 /hpf (0 - 4) Urine Microscopic WBC 44 /HPF (0-5) H Urine Squamous Epithelial Cells Few /hpf (<5) Urine Bacteria Few /hpf (None Seen) H Urine Mucus Few (None Seen) Urine Glucose Normal mg/dL (Normal) Microbiology Microbiology Date/Time Source Procedure Growth Status 02/14/25 14:20 Foot Right Gram Stain - Final Resulted 02/14/25 14:20 Foot Right Anaerobic Culture - Preliminary Resulted 02/14/25 14:20 Foot Right Aerobic Culture - Preliminary Resulted 02/13/25 15:52 Blood Blood Culture - Preliminary NO GROWTH AFTER 48 HOURS OF INCUBATION. Resulted Assessment/Plan Assessment/Plan 39-year-old female with a known history of hypertension, diabetes mellitus type 2 , Charcot joint initially presented to the hospital with a right foot pain and fever found to have 1. Right foot cellulitis/abscess status post I and D postop day 0 2. Bilateral Charcot feet 3. Diabetes mellitus type 2 4. Hypertension -IV antibiotics, pain meds, discharge plan once cleared-by Podiatry Services. -blood cultures are negative to date, follow up wound Gram stain and culture. Plan discussed with: Patient My Orders Orders - HANNAH VELAZCO MD Procedure Category Date Status Time * Infectious [place]- CONS 02/15/25 Transmitted Ciro Toney 14:14 Glucose Blood PHA 02/15/25 In Process (Accu-Chek Comfort 16:00 Insulin R (Human) PHA 02/15/25 In Process (Insulin R) 16:00 Dextrose 50% Syringe PHA 02/15/25 In Process 15:00 Date of Service: Feb 15, 2025 Billing Provider: HANNAH VELAZCO MD Common Visit Codes: [id number] INP/OBS CARE(MOD) HANNAH VELAZCO MD Feb 15, 2025 18:31
[2025-02-16] VITALS (8 sets, daily range): BP systolic 115–148; BP diastolic 66–90; PULSE 65–84; RESP 16–20; TEMP 97.2–99; O2SAT 97–100
[2025-02-16] MEDS ORDERED: BUPIVACAINE 0.5% P/F INJ 10 ML VIAL ONE (07:58)
[2025-02-16] MEDS ORDERED: KETAMINE 50mg/ML 1ml syringe ONE (09:31)
[2025-02-16] MEDS ORDERED: MIDAZOLAM HCL 2MG/2ML 2ml VIAL (1mg/ml) ONE (09:32)
[2025-02-16] MEDS ORDERED: PROPOFOL 10 MG/ML 20 ML IV ONE (09:32)
[2025-02-16] MEDS ORDERED: GLYCOPYRROLATE 0.2 MG/ML 1ML VIAL ONE (09:32)
[2025-02-16] MEDS ORDERED: ONDANSETRON HCL 4 MG/2 ML VIAL ONE (09:32)
[2025-02-16] MEDS ORDERED: VANCOMYCIN HCL 1000 MG VL ONE (10:44)
--- NOTE | 2025-02-16 10:53 | DVHOP2 ---
Operative Report - 2 Report Details Date: 02/16/25 Preop Diagnosis: 1. Right foot abscess 2. Right foot cellulitis 3. Right foot charcot foot 4. Right foot pain Postop Diagnosis: Same as preop Surgeon: Lauryn Trejo MD Anesthesiologist: None Anesthesia: Local Consent: The patient was informed of the risks and benefits of the procedure. These include but are not limited to complications of anesthesia, postoperative infection, incomplete relief of symptoms, recurrence of symptoms, damage to blood vessels, nerves and tendons, deep venous thrombosis, pulmonary embolism and possible need for repeat surgery in the future. Complications: None Estimated Blood Loss: Minimal Fluids: See anesthesia Findings: Consistent with diagnosis Indications for Surgery: Worsening right foot wound Name of Procedure Performed 1. Right foot I&D (83190) 2. Right foot delayed closure (27024) Procedure Details Procedure Details: PRE-PROCEDURE INFORMATION: In the pre-op holding area, the extremity to be operated on was clearly marked and the patient verified correct laterality of the marking. The patient was transferred to the OR table and placed in a supine position. A timeout was performed in which identification of the correct patient, procedure, location, and materials was done. The right foot and leg were prepped and draped in normal sterile fashion. DESCRIPTION OF PROCEDURE: Attention was directed to the right where area of fluctuance was noted. An incision was made over this area and was deepened through blunt dissection. The incision was deepened to the level of abscess and bone. Care was taken to the dissection to avoid any neurovascular and tendinous structures. The incision was deepened to the bone, and the abscess appeared to be purulent fluid consistent with pus. The cortices of the bone was then re moved with rongeur an all necrotic tissue. After the abscess was drained, the area was irrigated with 3 L normal saline using cysto tubing. A delayed closure was then performed using 2-0 nylon after was deemed appropriate with no longer concern for infection. POSTOPERATIVE INFORMATION: The patient tolerated the above noted procedure and anesthesia well and was transferred to the PACU with vital signs stable, and vascular status intact with capillary refill intact to all digits. Follow up on cultures. Patient will need a proximally 2 weeks of p.o. antibiotics. Patient to be nonweightbearing on the lower extremity. Patient to follow up with me next week. Condition Good Disposition Still a Patient LAURYN TREJO DPM Feb 16, 2025 10:53
[2025-02-16] MEDS: ACCU-CHEK COMFORT CURVE STRIP VI ONE (13:21)
--- NOTE | 2025-02-16 15:45 | DVHPN2 ---
Subjective 39-year-old female with a known history of diabetes mellitus type 2, hypertension, Charcot joints initially presented to hospital with a fever and right foot pain found to have right foot cellulitis currently on IV antibiotics. Patient is status post I and D. Reviewed: Care Plan Changes from previous H/P or p: No Changes Eyes: No Pain, No Vision change, No Conjunctivae inflammation, No Eyelid inflammation, No Other, No Redness ENT: No Ear pain, No Ear discharge, No Nose pain, No Nose discharge, No Nose congestion, No Mouth pain, No Mouth swelling, No Throat pain, No Throat swelling, No Other Cardiovascular: No Chest Pain, No Palpitations, No Orthopnea, No Paroxysmal Noc. Dyspnea, No Edema, No Lt Headedness, No Other Respiratory: No Cough, No Dry, No Shortness of breath, No SOB with excertion, No Wheezing, No Hemoptysis, No Pleuritic Pain, No Sputum, No Other Gastrointestinal: No Nausea, No Vomiting, No Abdominal Pain, No Diarrhea, No Constipation, No Melena, No Hematochezia, No Other Genitourinary: No Dysuria, No Frequency, No Incontinence, No Hematuria, No Retention, No Other Musculoskeletal: other (Bilateral foot pain); No neck pain, No shoulder pain, No arm pain, No back pain, No hand pain, No leg pain, No foot pain Skin: No Rash, No Lesions, No Jaundice, No Bruising, No Other Objective Vitals Vital Signs Date Time Temp Pulse Resp B/P (MAP) Pulse Ox O2 Delivery O2 Flow Rate FiO2 02/16/25 13:00 97.2 84 16 148/90 (109) 97 97.2 02/16/25 10:49 Mask 6.0 100 Intake/Output Intake and Output 02/16/25 07:00 Intake Total 2120 ml Balance 2120 ml Intake Oral 1870 ml IV Total 250 ml # Voids 4 Exam HEENT pupils are reactive Neck is supple CVS S1-S2 regular rate and rhythm Respiratory are clear GI positive bowel sound 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 Medications Current Medications Medications Dose Ordered Sig/Angelina Route Start Time Stop Time Status Last Admin Dose Admin Cefepime HCl 50 ml @ 12.5 mls/hr Q8HR IV 02/11/25 23:30 02/16/25 05:32 12.5 MLS/HR Vancomycin HCl 0 ml @ 0 mls/hr UD IV 02/12/25 00:00 Dextrose 50 ml UD PRN IV 02/12/25 00:00 Cancel Sodium Chloride 10 ml Q8HR IV 02/12/25 06:00 02/16/25 14:00 10 ML Acetaminophen/ Hydrocodone Bitart 1 tab Q4HP PRN PO 02/12/25 00:00 02/12/25 12:06 1 TAB Ondansetron HCl 4 mg Q4HP PRN IV 02/12/25 00:00 Docusate Sodium 100 mg BIDPRN PRN PO 02/12/25 00:00 Acetaminophen 650 mg Q6HP PRN PO 02/12/25 00:00 02/14/25 05:54 650 MG Nitroglycerin 0.4 mg Q5MINP PRN SL 02/12/25 00:00 Morphine Sulfate 2 mg Q30M PRN IV 02/12/25 00:00 Hydralazine HCl 10 mg Q6HP PRN IV 02/12/25 00:00 02/12/25 05:46 10 MG Atorvastatin Calcium 20 mg HS PO 02/12/25 22:00 02/15/25 21:07 20 MG Diagnostic Test (Pha) 1 strip IQ4HR 02/15/25 16:00 02/16/25 11:37 1 STRIP Insulin Human Regular IQ4HR SC 02/15/25 16:00 02/16/25 13:21 3 UNITS Dextrose 50 ml UD PRN IV 02/15/25 15:00 Laboratory Results Laboratory Tests 02/12/25 06:24 02/14/25 05:34 02/16/25 05:14 Urinalysis Test 02/11/25 19:35 Urine Color Colorless (Yellow) Urine Clarity Turbid (Clear) H Urine pH 6.0 (5.0-9.0) Urine Specific [place] 1.017 (1.001-1.035) Urine Protein 2+ (Negative) H Urine Ketones Negative (Negative) Urine Blood 3+ /uL (Negative) H Urine Nitrite 2+ (Negative) H Urine Bilirubin Negative (Negative) Urine Urobilinogen Normal mg/dL (Negative) Urine Leukocyte Esterase 2+ /uL (Negative) Urine RBC 3 /hpf (0 - 4) Urine Microscopic WBC 44 /HPF (0-5) H Urine Squamous Epithelial Cells Few /hpf (<5) Urine Bacteria Few /hpf (None Seen) H Urine Mucus Few (None Seen) Urine Glucose Normal mg/dL (Normal) Microbiology Microbiology Date/Time Source Procedure Growth Status 02/14/25 14:20 Foot Right Gram Stain - Final Resulted 02/14/25 14:20 Foot Right Anaerobic Culture - Preliminary Resulted 02/14/25 14:20 Aerobic Culture - Final Staphylococcus aureus Resulted 02/13/25 15:52 Blood Blood Culture - Preliminary NO GROWTH AFTER 48 HOURS OF INCUBATION. Resulted Assessment/Plan Assessment/Plan 39-year-old female with a known history of hypertension, diabetes mellitus type 2 , Charcot joint initially presented to the hospital with a right foot pain and fever found to have 1. Right foot cellulitis/abscess status post I and D postop day 1 2. Bilateral Charcot feet 3. Diabetes mellitus type 2 4. Hypertension -IV antibiotics, pain meds, PICC line placement, arrange IV antibiotics ceftriaxone 1 g IV daily for six weeks. Plan discussed with: Patient My Orders Orders - HANNAH VELAZCO MD Procedure Category Date Status Time * Picc Line Consult CONS 02/16/25 Transmitted 15:02 * Curve Cleaner CONS 02/16/25 Transmitted Consult Date of Service: Feb 16, 2025 Billing Provider: HANANH VELAZCO MD Common Visit Codes: [id number] INP/OBS CARE(MOD) HANNHA VELAZCO MD Feb 16, 2025 15:45
[2025-02-16] MEDS ORDERED: CEPH500C PO (16:52)
[2025-02-16] MEDS ORDERED: NALO4SPR2 (16:52)
[2025-02-16] MEDS ORDERED: HYDR-4902 PO (16:52)
[2025-02-16] MEDS ORDERED: RIFA300C58 PO (16:52)
--- NOTE | 2025-02-16 16:55 | DVHDS2 ---
Discharge Summary Date of Admission Feb 11, 2025 at 23:48 Date of Discharge: Feb 16, 2025 Labs/Diagnostic Data: Laboratory Results Test 02/16/25 13:03 02/16/25 10:55 02/16/25 08:58 02/16/25 05:14 Vancomycin Level Trough 16.6 ug/mL (5-10) POC Glucose 190 mg/dl (70-106) Beta HCG, Quantitative 1.7 mIU/mL (1.5-4.2) Creatinine 1.04 mg/dL (0.550-1.02) Glomerular Filtration Rate Calc 69 mL/min (>90) Test 02/14/25 05:34 02/12/25 06:24 02/11/25 19:58 02/11/25 19:35 White Blood Count 5.4 10^3/uL (4.4-10.8) Red Blood Count 3.71 10^6/uL (4.0-5.20) Hemoglobin 11.0 g/dL (12.2-16.2) Hematocrit 33.0 % (36.0-46.0) Mean Corpuscular Volume 89.0 fL (80.0-100.0) Mean Corpuscular Hemoglobin 29.7 pg (28.0-32.0) Mean Corpuscular Hemoglobin Concent 33.3 g/dL (32.0-36.0) Red Cell Distribution Width 13.2 % (11.8-14.3) Platelet Count 313 10^3/uL (140-450) Mean Platelet Volume 8.1 fL (6.9-10.8) Neutrophils (%) (Auto) 67.0 % (37.0-80.0) Lymphocytes (%) (Auto) 23.0 % (10.0-50.0) Monocytes (%) (Auto) 7.4 % (0.0-12.0) Eosinophils (%) (Auto) 2.0 % (0.0-7.0) Basophils (%) (Auto) 0.6 % (0.0-2.0) Neutrophils # (Auto) 3.6 10 ^3/uL (1.6-8.6) Lymphocytes # (Auto) 1.3 10 ^3/uL (0.4-5.4) Monocytes # (Auto) 0.4 10 ^3/uL (0-1.3) Eosinophils # (Auto) 0.1 10 ^3/uL (0-0.8) Basophils # (Auto) 0 10 ^3/uL (0-0.2) Nucleated Red Blood Cells 0.0 % Sodium Level 142 mmol/L (136-145) Potassium Level 4.4 mmol/L (3.5-5.1) Chloride Level 109 mmol/L (98-107) Carbon Dioxide Level 25 mmol/L (20-31) Anion Gap 8 (5-15) Blood Urea Nitrogen 15 mg/dL (9-23) BUN/Creatinine Ratio 17.9 (10.0-20.0) Serum Glucose 106 mg/dL (74-106) Calcium Level 9.7 mg/dL (8.7-10.4) Total Bilirubin 0.6 mg/dL (0.2-1.0) Aspartate Amino Transferase (AST) 28 U/L (13-40) Alanine Aminotransferase (ALT) 27 U/L (7-40) Alkaline Phosphatase 74 U/L (46-116) Total Protein 7.4 g/dL (5.7-8.2) Albumin 4.0 g/dL (3.2-4.8) Prothrombin Time 10.4 sec (9.3-11.8) Prothrombin Time INR 0.98 (0.9-1.15) Activated Partial Thromboplast Time 28.3 SEC (24.5-34.5) Lactic Acid Level 0.9 mmol/L (0.4-2.0) B-Type Natriuretic Peptide 67.02 pg/mL (0-100) Urine Color Colorless (Yellow) Urine Clarity Turbid (Clear) Urine pH 6.0 (5.0-9.0) Urine Specific [place] 1.017 (1.001-1.035) Urine Protein 2+ (Negative) Urine Ketones Negative (Negative) Urine Blood 3+ /uL (Negative) Urine Nitrite 2+ (Negative) Urine Bilirubin Negative (Negative) Urine Urobilinogen Normal mg/dL (Negative) Urine Leukocyte Esterase 2+ /uL (Negative) Urine RBC 3 /hpf (0 - 4) Urine Microscopic WBC 44 /HPF (0-5) Urine Squamous Epithelial Cells Few /hpf (<5) Urine Bacteria Few /hpf (None Seen) Urine Mucus Few (None Seen) Urine Glucose Normal mg/dL (Normal) Other Laboratory Tests 02/16/25 05:14 02/14/25 05:34 02/12/25 06:24 Brief Hx & Hospital Course: 39-year-old female with a known history of hypertension, diabetes mellitus type 2 , Charcot joint initially presented to the hospital with a right foot pain found to have right foot cellulitis/abscess. Patient underwent status post I and D of the right foot on02/14 and delayed closure on02/16. Patient was given IV antibiotics infectious Disease was consulted as well as podiatry services patient is currently cleared to be discharged on p.o. antibiotics. Initially plan was for IV antibiotics then insurance will not cover IV antibiotics. Eventually patient will be discharged on p.o. antibiotics as prescribed. 1. Right foot cellulitis/abscess status post I and D postop day 1 2. Bilateral Charcot feet 3. Diabetes mellitus type 2 4. Hypertension Condition at Discharge: Good Final Diagnosis/Problems List 39-year-old female with a known history of hypertension, diabetes mellitus type 2 , Charcot joint initially presented to the hospital with a right foot pain and fever found to have 1. Right foot cellulitis/abscess status post I and D postop day 1 2. Bilateral Charcot feet 3. Diabetes mellitus type 2 4. Hypertension Discharge Disposition: Home SNF Discharge Will this Physician continue t: No Discharge Instruct/Medications Diet: Cardiac 2g Na,low cholest Activity: See Comment Activity comment: Weight-bearing as tolerated on the right lower extremity Follow Up/Referral: Follow up with the PCP in 1-2 weeks Follow up with Podiatry in one week Follow up with Dr. Markus han one week to two weeks Medications: Medication as prescribed and reconciled New Medications: Cephalexin Monohydrate (Cephalexin) 500 Mg Cap 1 CAP PO QID for 42 Days, #168 CAP Hydrocodone-Acetaminophen (Hydrocodone Bitartrate/AC 5-325 mg) 1 Tab Tab 1 TAB PO Q6HP PRN, #14 TAB Naloxone HCl (Narcan) 4 Mg/0.1 Ml Spr 4 MG NA PE ELECTRICAL ENGINEER, #2 SPRAY Rifampin (Rifampin) 300 Mg Cap 300 MG PO BID for 42 Days, #84 CAP Scheduled Cephalexin Monohydrate (Cephalexin), 1 CAP PO QID Naloxone HCl (Narcan), 4 MG NA PE ELECTRICAL ENGINEER Rifampin (Rifampin), 300 MG PO BID Scheduled PRN Hydrocodone-Acetaminophen (Hydrocodone Bitartrate/AC 5-325 mg), 1 TAB PO Q6HP PRN Discharge Statement: "Patient was advised to return to the ER or call 911 if any headaches, dizziness, shortness of breath, chest pain, abdominal pain, bleeding, fevers, or worsening of medical condition. Patient was counseled about treatment plan, medications, possible side effects, patientverbalized understanding. All questions were answered to the best of my ability. This discharge took greater then 30 minutes in planning, reviewing documentation, counseling the patient, and discussing with other team members." ASSESSMENT ASSESSMENT Assessment 39-year-old female with a known history of hypertension, diabetes mellitus type 2 , Charcot joint initially presented to the hospital with a right foot pain and fever found to have 1. Right foot cellulitis/abscess status post I and D postop day 1 2. Bilateral Charcot feet 3. Diabetes mellitus type 2 4. Hypertension Date of Service: Feb 16, 2025 Billing Provider: HANNAH VELAZCO MD Common Visit Codes: [id number] DISCH DAY >30min HANNAH VELAZCO MD Feb 16, 2025 16:55
== END 2025-02-16 19:00 | disposition home or self-care (01) | DRG 383 ==
LOC: ER 19:31 → OVERFLOW 23:48 → EAST 23:53
PROVIDERS: ADMIT Internal Medicine; ATTEND Internal Medicine
PROC: 0Y9M0ZZ Drainage of Right Foot, Open Approach (ICD-10-PCS; principal; 2025-02-14 14:07)
PROC: 0Y9M0ZZ Drainage of Right Foot, Open Approach (ICD-10-PCS; 2025-02-16)
DX: L03.115 Cellulitis of right lower limb (principal); E11.610 Type 2 diabetes mellitus with diabetic neuropathic arthropathy; L02.611 Cutaneous abscess of right foot; I10 Essential (primary) hypertension; N39.0 Urinary tract infection, site not specified; Z79.4 Long term (current) use of insulin
CPT/HCPCS: 36415; 71045; 73630; 73718; 80053; 80202; 81001; 82565; 82962; 83605; 83880; 84702; 85025; 85610; 85730; 87040; 87070; 87075; 87077; 87186; 87205; 93971; 96365; 96375; G0378; J1815; J2003; J2250; J2405; J2704; J3490

== ENCOUNTER 2025-05-04 17:50 | Inpatient (IN) | payer MEDICAID ==
[~2025-05-04] VITALS: Ht 157.5 cm; Wt 79.4 kg
[~2025-05-04 17:50] MED LIST: CEPH500C PO; HYDR-4902 PO; NALO4SPR2; RIFA300C58 PO
--- NOTE | 2025-05-04 18:22 | ED.PDOC ---
History of Present Illness HPI Comments 40 y/o F obese F, with a Hx of DM - on insulin, presents with unhealing diabetic ulcer wound to her bottom side of her right foot, with associated pain, swelling, and fever. Patient reports waking up to morning to symptoms following previous incidence that took place in February 2025. Denial of any foot discolor ation, radiating pain, nausea, vomiting, or further associated symptoms. Chief Complaint: Wound Check Time Seen by MD: 18:10 Primary Care Provider: MARGOT Reviewed Notes: Nurses Notes, Medications, Allergies Allergies: Coded Allergies: NO KNOWN ALLERGIES (Unverified , 02/11/25) Home Meds Active Scripts Naloxone HCl (Narcan) 4 Mg/0.1 Ml Spr, 4 MG NA EDITOR, #2 SPRAY Prov:HANNAH VELAZCO MD 02/16/25 Hydrocodone-Acetaminophen (Hydrocodone Bitartrate/AC 5-325 mg) 1 Tab Tab, 1 TAB PO Q6HP PRN, #14 TAB Prov:HANNAH VELAZCO MD 02/16/25 Rifampin (Rifampin) 300 Mg Cap, 300 MG PO BID for 42 Days, #84 CAP Prov:HANNAH VELAZCO MD 02/16/25 Cephalexin Monohydrate (Cephalexin) 500 Mg Cap, 1 CAP PO QID for 42 Days, #168 CAP Prov:HANNAH VELAZCO MD 02/16/25 Information Source: Patient Mode of Arrival: Ambulatory Severity: Moderate Timing: Hours Duration: Since onset Prehospital treatment: None Past Medical History PAST MEDICAL HISTORY: DM, HTN Surgical History: Appendectomy STEWARD/[employer]EWARDESS [employer] CLASS History: Denies all STEWARD/STEWARDESS [employer] CLASS Hx Family History Family History: Reviewed,noncontributory to illness Social History Smoker: Non-Smoker Alcohol: Denies ETOH Use Drugs: Denies Drug Use Lives In: Home All Other Systems: Reviewed and Negative (Comprehensive review of systems are negative unless stated in HPI) Physical Exam General Appearance: Moderate Distress, Obese HEENT: Normal ENT Inspection, Pharynx Normal, TMs Normal Neck: Full Range of Motion, Non-Tender, Normal, Normal Inspection Respiratory: Chest Non-Tender, Lungs Clear, No Accessory Muscle Use, No Respiratory Distress, Normal Breath Sounds Cardiovascular: No Edema, No JVD, No Murmur, No Gallop, Normal Peripheral Pulses, Regular Rate/Rhythm Breast Exam: Deferred Gastrointestinal: No Organomegaly, Non Tender, No Pulsatile Mass, Normal Bowel Sounds, Soft Genitalia: Deferred Pelvic: Deferred Rectal: Deferred Extremities: No calf tenderness, Normal capillary refill, Normal range of motion, Non-tender, No pedal edema, Other (diabetic ulcer wound to the plantar aspect of right foot with siginficant swelling) Musculoskeletal : Apperance: Normal Neurologic: Alert, still cleaner tube II-XII nml as Tested, No Motor Deficits, Normal Affect, Normal Mood, No Sensory Deficits Cerebellar Function: Normal Reflexes: Normal Skin: Dry, Normal Color, Warm Lymphatic: No Adenopathy Was a procedure done? Was a procedure done?: No Differential Dx Considerations may include: unhealing diabetic foot wound, abscess, cellulitis, dermatitis, among others X-Ray, Labs, Meds, VS Vital Signs Date Time Temp Pulse Resp B/P (MAP) Pulse Ox O2 Delivery O2 Flow Rate FiO2 05/04/25 19:35 99.4 107 18 106/67 (80) 96 99.4 05/04/25 17:53 98.6 96 18 130/76 96 98.6 Lab Test 05/04/25 18:47 Range/Units White Blood Count 9.7 4.4-10.8 10^3/uL Red Blood Count 3.85 L 4.0-5.20 10^6/uL Hemoglobin 11.6 L 12.2-16.2 g/dL Hematocrit 33.9 L 36.0-46.0 % Mean Corpuscular Volume 88.1 80.0-100.0 fL Mean Corpuscular Hemoglobin 30.1 28.0-32.0 pg Mean Corpuscular Hemoglobin Concent 34.2 32.0-36.0 g/dL Red Cell Distribution Width 14.3 11.8-14.3 % Platelet Count 263 140-450 10^3/uL Mean Platelet Volume 8.9 6.9-10.8 fL Neutrophils (%) (Auto) 82.2 H 37.0-80.0 % Lymphocytes (%) (Auto) 9.7 L 10.0-50.0 % Monocytes (%) (Auto) 7.6 0.0-12.0 % Eosinophils (%) (Auto) 0.2 0.0-7.0 % Basophils (%) (Auto) 0.3 0.0-2.0 % Neutrophils # (Auto) 8.0 1.6-8.6 10 ^3/uL Lymphocytes # (Auto) 0.9 0.4-5.4 10 ^3/uL Monocytes # (Auto) 0.7 0-1.3 10 ^3/uL Eosinophils # (Auto) 0 0-0.8 10 ^3/uL Basophils # (Auto) 0 0-0.2 10 ^3/uL Nucleated Red Blood Cells 0.1 % Sodium Level 139 136-145 mmol/L Potassium Level 3.9 3.5-5.1 mmol/L Chloride Level 104 98-107 mmol/L Carbon Dioxide Level 25 20-31 mmol/L Anion Gap 10 5-15 Blood Urea Nitrogen 26 H 9-23 mg/dL Creatinine 1.13 H 0.550-1.02 mg/dL Glomerular Filtration Rate Calc 62 >90 mL/min BUN/Creatinine Ratio 23.0 H 10.0-20.0 Serum Glucose 62 L 74-106 mg/dL Lactic Acid Level 1.5 0.4-2.0 mmol/L Calcium Level 9.0 8.7-10.4 mg/dL Total Bilirubin 0.4 0.2-1.0 mg/dL Aspartate Amino Transferase (AST) 22 13-40 U/L Alanine Aminotransferase (ALT) 24 7-40 U/L Alkaline Phosphatase 89 46-116 U/L Total Protein 7.9 5.7-8.2 g/dL Albumin 4.4 3.2-4.8 g/dL Time of 1ST Reevaluation: 18:40 Reevaluation 1ST: Unchanged Patient Education/Counseling: Treatment, Other (need for admission ) Family Education/Counseling: No Family Present SEPSIS Sepsis Screen Date sepsis recognized/suspect: May 04, 2025 Time Sepsis recognized/suspect: 1800 Recent Procedure: No On Antibiotic Therapy: No Respiratory Rate >20: No Heart Rate >90: No Temp<36 C (96.8 F) or >38.3 C: No SBP <90 or MAP <65 mmHG: No New Acute Mental Status Change: No Is the patient on CPAP, BIPAP,: No Physician Orders Blood Culture (05/04/25 18:06) R Foot 3 View Xray (05/04/25 18:07) Vital Signs Date Time Temp Pulse Resp B/P (MAP) Pulse Ox O2 Delivery O2 Flow Rate FiO2 05/04/25 19:35 99.4 107 18 106/67 (80) 96 99.4 05/04/25 17:53 98.6 96 18 130/76 96 98.6 Laboratory Tests Test 05/04/25 18:47 Lactic Acid Level 1.5 mmol/L (0.4-2.0) White Blood Count 9.7 10^3/uL (4.4-10.8) Departure 1 Departure Time of Disposition: 19:50 Impression: Primary Impression: Cellulitis of right foot Additional Impressions: Osteomyelitis of third toe of right foot Diabetic foot ulcer Acute renal injury Disposition: ADMITTED INPATIENT Admit to: Med Surg Condition: Guarded Discharged With: Self Comments 40-year-old female with diabetes now with a right foot swelling and pain. On exam there is significant swelling and diabetic ulceration to the right foot plantar aspect. X-ray shows soft tissue swelling and possible abscess and likely osteomyelitis of the 3rd toe. Lab review shows a normal white blood cell count of 9.7 but there is a left shift with 82% neutrophils. There is acute renal injury with creatinine elevated 1.13. Glucose well controlled at 62. Patient was given IV Zosyn and vancomycin antibiotics. Patient will need admission for supportive care and further workup Critical Care Note Critical Care Time?: Yes (35 min-critical care time only) Critical care comment: Total critical care time: Approximately 36 minutes Due to a high probability of clinically significant, life threatening deterioration, the patient required my highest level of preparedness to intervene emergently and I personally spent this critical care time directly and personally managing the patient. This critical care time included obtaining a history; examining the patient; pulse oximetry; ordering and review of studies; arranging urgent treatment with development of a management plan; evaluation of patient's response to treatment; frequent reassessment; and, discussions with other providers. This critical care time was performed to assess and manage the high probability of imminent, life-threatening deterioration that could result in multi-organ failure. It was exclusive of separately billable procedures and treating other patients. Stability Stability form required: No Heart Score Heart Score: Heart Score Response (Comments) Value History N/A 0 EKG N/A 0 Age N/A 0 Risk Factors N/A 0 Troponin N/A 0 Total 0 I personally scribed for DAYAN GUTIERREZ MD ([email or web address]) on 05/04/25 at 18:22. Electronically submitted by Dallas Nelson [email or web address]). DAYAN GUTIERREZ MD May 04, 2025 18:22
--- NOTE | 2025-05-04 18:52 | DVH ---
Indication: infected wound r/o osteomyelitis Technique: XY R FOOT 3 VIEW XRAYXY Comparison: 02/11/2025 FINDINGS/IMPRESSION: Disorganization, dystrophic and destructive changes involving the midfoot. This likely represent sequ ambreen of Charcot foot Soft tissue prominence along the inferior aspect of the midfoot measuring at least 3.8 x 2.7 cm which could represent fluid collection/ abscess in the appropriate clinical setting. Widening between the 1st and 2nd metatarsal bases consistent with a chronic Lisfranc ligamentous inju ry Erosive/destructive changes of the 3rd distal phalanx distal tuft which could represent sequela of in fection / osteomyelitis/aggressive process [id number] degenerate changes of the 1st MTP joint.
[2025-05-04 19:00] VITALS: PULSE 107; RESP 18; O2SAT 96
[2025-05-04] MEDS: SODIUM CHLORIDE 0.9% 1,000 ML IVB ONE (19:00)
[2025-05-04] MEDS: VANCOMYCIN 1GM/250ML KIT 250 ML IV ONE (19:00)
[2025-05-04 19:07] LABS: Hematocrit 33.9 % (36.0-46.0); Hemoglobin 11.6 g/dL (12.2-16.2); Mean Corpuscular Hemoglobin 30.1 pg (28.0-32.0); Mean Corpuscular Volume 88.1 fL (80.0-100.0); Nucleated Red Blood Cells % 0.1 %
[2025-05-04 19:25] LABS: Alanine Aminotransferase 24 U/L (7-40); Albumin 4.4 g/dL (3.2-4.8); Alkaline Phosphatase 89 U/L (46-116); Anion Gap 10 (5-15); BUN/Creatinine Ratio 23.0 (10.0-20.0); Bilirubin, Total 0.4 mg/dL (0.2-1.0); Calcium 9.0 mg/dL (8.7-10.4); Carbon Dioxide 25 mmol/L (20-31); Chloride 104 mmol/L (98-107); Potassium 3.9 mmol/L (3.5-5.1); Sodium 139 mmol/L (136-145); Total Protein 7.9 g/dL (5.7-8.2)
[2025-05-04 19:32] LABS: Blood Urea Nitrogen 26 mg/dL (9-23); Glucose 62 mg/dL (74-106)
[2025-05-04] MEDS: ONDANSETRON HCL 4 MG/2 ML VIAL IV ONE (20:25)
[2025-05-04] MEDS: MORPHINE SULFATE 4 MG/ML SYR/VIAL IV ONE (20:26)
[2025-05-04] MEDS: diphenhdrAMINE HCL 50 MG/1 ML VL IM ONE (21:13)
[2025-05-04] MEDS ORDERED: DEXTROSE (50%) 50ML SYRG IV PRN (22:00)
--- NOTE | 2025-05-04 22:12 | DVHHPRES ---
History of Present Illness Resident Creating Document: ARIANA RODRIGUEZ History of Present Illness Ms. Payne is a 40-year-old female with prior medical history of type 2 diabetes mellitus, hypertension, Charcot foot, and previous diabetic foot ulcers, who presents today to the ED with chief complaint of nonhealing wound of the right foot. The patient states that today she had onset of sharp pain of the plantar surface of her right foot, non-radiating, intensity 10/10, aggravated by standing or walking, mildly relieved with the use of tylenol, associated with redness and swelling of the plantar surface of the right foot. Additionally, the patient presented a fever with home temperature reading of 103 F. She was discharged from the this institution on 02/16/2025 due to cellulitis and abscess of the right foot requiring two I and D procedures. Due to persistence of symptoms the patient sought care at the emergency department. On evaluation in the ED, the patient was afebrile, tachycardic, with borderline blood pressures. Initial labs significant for normocytic anemia, neutrophilia, creatinine 1.13, BUN 26, and vitamin-D 10.2. right foot x-ray shows soft tissue prominence along the inferior aspect of the midfoot measuring at least 3.8 x 2.7 cm which could represent fluid collection/abscess, erosive/destructive changes of the 3rd distal phalanx distal tuft which could represent sequelae of infection / osteomyelitis /aggressive process. She was started on IV fluids, IV antibiotics, and IV pain regimen. She was admitted for further workup and management. Cardiovascular: HTN Musculoskeletal: Other (Charcot foot) Endocrine: Diabetes Past Surgical History: Appendectomy, Cataract Removal, Other (I&D) Family History: None Smoke: No ALCOHOL: none Drugs: None Lives: with Family Review of Systems Review of Systems Constitutional: Refers fever, Denies weight loss and chills. HEENT: Denies changes in vision and hearing. Respiratory: Denies shortness of breath and cough Cardiovascular: Denies chest discomfort or palpitations GI: Denies abdominal distention, abdominal pain, diarrhea : Denies dysuria and urinary frequency. Musculoskeletal: Refers pain, swelling, redness of plantar surface of right foot Skin: Denies rash and pruritus. Neurological: denies dizziness headache vision or hearing problems Allergies: Coded Allergies: NO KNOWN ALLERGIES (Unverified , 02/11/25) Exam Vital Signs Vital Signs Date Time Temp Pulse Resp B/P (MAP) Pulse Ox O2 Delivery O2 Flow Rate FiO2 05/04/25 20:26 107 18 106/67 05/04/25 19:35 99.4 96 99.4 05/04/25 19:00 Room Air* 0 21 Exam General: The patient alert and oriented in person place and time. Patient following commands HEENT: Normocephalic, atraumatic, left pupil is slightly dilated secondary to previous cataract surgery, right pupil is normoreactive, EOM intact, pink conjunctiva, pink dry mucous membrane Respiratory/pulmonary: Bilateral chest expansion, no pain on palpation of chest wall, clear lungs bilaterally, vesicular murmurs present in almost all lung renteria, no associated crackles or wheezes. Cardiovascular: Normal RRR, normal S1 and S2, no murmurs Abdomen: Obese, Abdomen nondistended, normal bowel sounds, soft, there is no pain to palpation in any of the abdominal quadrants, no palpable masses. Extremities: Deformities of bilateral feet consistent with Charcot foot, presence of ulcer on plantar surface of right foot a proximally 1 x 1 cm with surrounding erythema without presence of discharge, pain on palpation of s urrounding area, small open wound on lateral surface of right 1st toe, there is no peripheral edema present at the lower extremities, normal pulses Skin: As above, there is no sacral edema present at this time. Neurological: Intact cranial nerves with no focal neurologic deficits Labs/Xrays Labs Test 05/04/25 18:47 Range/Units White Blood Count 9.7 4.4-10.8 10^3/uL Red Blood Count 3.85 L 4.0-5.20 10^6/uL Hemoglobin 11.6 L 12.2-16.2 g/dL Hematocrit 33.9 L 36.0-46.0 % Mean Corpuscular Volume 88.1 80.0-100.0 fL Mean Corpuscular Hemoglobin 30.1 28.0-32.0 pg Mean Corpuscular Hemoglobin Concent 34.2 32.0-36.0 g/dL Red Cell Distribution Width 14.3 11.8-14.3 % Platelet Count 263 140-450 10^3/uL Mean Platelet Volume 8.9 6.9-10.8 fL Neutrophils (%) (Auto) 82.2 H 37.0-80.0 % Lymphocytes (%) (Auto) 9.7 L 10.0-50.0 % Monocytes (%) (Auto) 7.6 0.0-12.0 % Eosinophils (%) (Auto) 0.2 0.0-7.0 % Basophils (%) (Auto) 0.3 0.0-2.0 % Neutrophils # (Auto) 8.0 1.6-8.6 10 ^3/uL Lymphocytes # (Auto) 0.9 0.4-5.4 10 ^3/uL Monocytes # (Auto) 0.7 0-1.3 10 ^3/uL Eosinophils # (Auto) 0 0-0.8 10 ^3/uL Basophils # (Auto) 0 0-0.2 10 ^3/uL Nucleated Red Blood Cells 0.1 % Sodium Level 139 136-145 mmol/L Potassium Level 3.9 3.5-5.1 mmol/L Chloride Level 104 98-107 mmol/L Carbon Dioxide Level 25 20-31 mmol/L Anion Gap 10 5-15 Blood Urea Nitrogen 26 H 9-23 mg/dL Creatinine 1.13 H 0.550-1.02 mg/dL Glomerular Filtration Rate Calc 62 >90 mL/min BUN/Creatinine Ratio 23.0 H 10.0-20.0 Serum Glucose 62 L 74-106 mg/dL Lactic Acid Level 1.5 0.4-2.0 mmol/L Calcium Level 9.0 8.7-10.4 mg/dL Total Bilirubin 0.4 0.2-1.0 mg/dL Aspartate Amino Transferase (AST) 22 13-40 U/L Alanine Aminotransferase (ALT) 24 7-40 U/L Alkaline Phosphatase 89 46-116 U/L Total Protein 7.9 5.7-8.2 g/dL Albumin 4.4 3.2-4.8 g/dL SEPSIS Sepsis Screen Date sepsis recognized/suspect: May 04, 2025 Time Sepsis recognized/suspect: 1899 Recent Procedure: No On Antibiotic Therapy: No Respiratory Rate >20: No Heart Rate >90: Yes Temp<36 C (96.8 F) or >38.3 C: No SBP <90 or MAP <65 mmHG: No New Acute Mental Status Change: No Is the patient on CPAP, BIPAP,: No Physician Orders Blood Culture (05/04/25 18:06) R Foot 3 View Xray (05/04/25 18:07) Hemoglobin A1c (05/04/25 21:36) Urinalysis (05/04/25 21:36) Drug Screen (05/04/25 21:36) Complete Blood Count (05/05/25 04:00) Basic Metabolic Panel (05/05/25 04:00) Magnesium (05/04/25 21:36) Phosphorus (05/04/25 21:36) Thyroid Stimulating Hormone (05/04/25 21:36) Vitamin D, 25-Hydroxy (05/04/25 21:36) Vitamin B12 (05/04/25 21:36) Admit (05/04/25 21:57) Allergies (05/04/25 21:57) Code Status (05/04/25:57) Enoxaparin Sodium (Lovenox) (05/05/25 10:00) Complete Blood Count (05/05/25 04:00) Npo (Nothing By Mouth) Diet (05/05/25 Breakfast) Condition: Stable (05/04/25 21:57) Acetaminophen Tablet (Tylenol Tablet) (05/04/25 22:00) Stat Ekg For Chest Pain (05/04/25 21:57) Notify Md Of Changes From Base (05/04/25 21:57) Emergency Dysrhythmia Protocol (05/04/25 21:57) Rhythm Strips Once Every Shift (05/04/25 21:57) NS (05/04/25 22:00) Vancomycin (05/05/25 10:00) Ceftriaxone Ivpb Rocephin (05/05/25 09:00) Glucose Blood (Accu-Chek Comfort Curve T (05/05/25 00:00) Mild Sliding Scale Npo - Q6hr (05/05/25 00:00) Dextrose 50% Syringe (05/04/25 22:00) *Podiatry Consult [facility]) (05/04/25 21:57) Lisinopril Tablet (Zestril Tablet) (05/05/25 10:00) Vital Signs Date Time Temp Pulse Resp B/P (MAP) Pulse Ox O2 Delivery O2 Flow Rate FiO2 05/04/25 20:26 107 18 106/67 05/04/25 19:35 99.4 107 18 106/67 (80) 96 99.4 05/04/25 19:00 107 18 96 Room Air* 0 21 05/04/25 17:53 98.6 96 18 130/76 96 98.6 Laboratory Tests Test 05/04/25 18:47 Lactic Acid Level 1.5 mmol/L (0.4-2.0) White Blood Count 9.7 10^3/uL (4.4-10.8) Medications Medications Dose Ordered Sig/Angelina Route Start Time Stop Time Status Last Admin Dose Admin Diphenhydramine HCl 25 mg ONCE ONCE IM 05/04/25 21:15 05/04/25 21:16 DC 05/04/25 21:13 25 MG Morphine Sulfate 4 mg ONCE ONCE IV 05/04/25 18:15 05/04/25 18:16 DC 05/04/25 20:26 4 MG Ondansetron HCl 4 mg ONCE ONCE IV 05/04/25 18:15 05/04/25 18:16 DC 05/04/25 20:25 4 MG Sodium Chloride 1,000 ml @ 1,000 mls/hr Q1H ONCE IVB 05/04/25 18:15 05/04/25 19:14 DC 05/04/25 19:00 1,000 MLS/HR Vancomycin HCl 250 ml @ 250 mls/hr ONCE ONCE IV 05/04/25 18:15 05/04/25 19:14 DC 05/04/25 19:00 250 MLS/HR Assessment/Plan Assessment/Plan Assessment and Plan: Nonhealing diabetic right foot ulcer, rule out osteomyelitis -Right foot x-ray: Soft tissue prominence in inferior aspect of midfoot 3.8 x 2.7 cm which could represent fluid collection /abscess, erosive/destructive changes of the 3rd distal phalanx distal tuft which could represent sequelae of infection/osteomyelitis/aggressive process -Right foot CT ordered -Zosyn IV q.8 hours -Vancomycin IV per pharmacy protocol -NS 1 L bolus and maintenance 75 cc/hour -Acetaminophen 650 mg p.o. q.6 hours p.r.n. -Morphine 4 mg IV once -Morphine 1 mg IV q.6 hours PRN. -Patient will be kept on NPO pending evaluation by Podiatry -Podiatry has been consulted Type 2 diabetes mellitus, HB A1c 6.0 -Mild SSI -Accu-Cheks -Consistent carbohydrate diet once NPO has been lifted Hypertension -Lisinopril 10 mg p.o. daily is being held at this moment due to borderline low blood pressure Charcot foot Vitamin-D deficiency -Vitamin-D 81124 units p.o. Q 7D Diet: NPO DVT prophylaxis: Enoxaparin 40 mg sc daily GI prophylaxis: Protonix 40 mg IV daily Case discussed with Dr. Quesada Goals of care discussed with the patient for 25 minutes. The patient states that her next of kin is her son Monty ([phone]) and that she wishes that updates be given to him. Full code. Plan discussed with: Patient, Other (Nurses) My Orders Orders - ARIANA RODRIGUEZ Procedure Category Date Status Time Hemoglobin A1c LAB 05/04/25 In Process 21:36 Urinalysis LAB 05/04/25 Logged 21:36 Drug Screen LAB 05/04/25 Logged 21:36 Complete Blood Count LAB 05/05/25 Verified 04:00 Basic Metabolic Panel LAB 05/05/25 Verified 04:00 Magnesium LAB 05/04/25 In Process 21:36 Phosphorus LAB 05/04/25 In Process 21:36 Thyroid Stimulating LAB 05/04/25 In Process Hormone 21:36 Vitamin D, 25-Hydroxy LAB 05/04/25 In Process 21:36 Vitamin B12 LAB 05/04/25 In Process 21:36 Admit ADMIT 05/04/25 Verified 21:57 Allergies [facility] 05/04/25 Verified 21:57 Code Status CODE 05/04/25 Verified 21:57 Enoxaparin Sodium PHA 05/05/25 Verified (Lovenox) 10:00 Complete Blood Count LAB 05/05/25 Verified 04:00 Npo (Nothing By DIET 05/05/25 Verified Mouth) Diet Breakfast Condition: Stable [facility] 05/04/25 Verified 21:57 Acetaminophen Tablet PHA 05/04/25 Verified (Tylenol Tablet) 22:00 Stat Ekg For Chest [facility] 05/04/25 Verified Pain 21:57 Notify Of Changes [facility] 05/04/25 Verified From Base 21:57 Emergency Dysrhythmia [facility] 05/04/25 Verified Protocol 21:57 Rhythm Strips Once [facility] 05/04/25 Verified Every Shift 21:57 NS PHA 05/04/25 Verified 22:00 Vancomycin PHA 05/05/25 Verified 10:00 Ceftriaxone Ivpb PHA 05/05/25 Verified Rocephin 09:00 Glucose Blood PHA 05/05/25 Verified (Accu-Chek Comfort 00:00 Mild Sliding Scale PHA 05/05/25 Verified Npo - Q6hr 00:00 Dextrose 50% Syringe PHA 05/04/25 Verified 22:00 *Podiatry Consult CONS 05/04/25 Verified [facility]on([facility]) 21:57 Lisinopril Tablet PHA 05/05/25 Verified (Zestril Tablet) 10:00 Date of Service: May 04, 2025 Billing Provider: MILLICENT QUESADA MD Common Visit Codes: [id number] INP/OBS CARE (HIGH) Secondary Visit Codes: [id number] CARE PLAN 30 MINUTES ARIANA RODRIGUEZ RESIDENT May 04, 2025 22:12
[2025-05-04 22:20] LABS: Magnesium 1.8 mg/dL (1.6-2.6)
[2025-05-04] MEDS: PIPERACILLIN-TAZOB 3.375GM 100 ML IV ONE (22:42)
[2025-05-04 23:00] VITALS: BP 128/74; PULSE 85; RESP 20; TEMP 97.9; O2SAT 96
[2025-05-04 23:07] VITALS: BP 128/74; PULSE 85; RESP 20; TEMP 97.9; O2SAT 96
[2025-05-04] MEDS: SODIUM CHLORIDE 0.9% 500 ML IV ONE (23:28)
[2025-05-05] VITALS (7 sets, daily range): BP systolic 102–161; BP diastolic 70–88; PULSE 69–85; RESP 12–20; TEMP 97.4–99.1; O2SAT 96–98
[2025-05-05] MEDS: ACCU-CHEK COMFORT CURVE STRIP VI SCH (00:18)
[2025-05-05] MEDS: SODIUM CHLORIDE 0.9% 1,000 ML IV SCH (00:23)
[2025-05-05] MEDS: InsuLIN REG 1unit/0.01ml Soln (100units/ml) SC SCH (00:28)
[2025-05-05] MEDS ORDERED: MORPHINE SULFATE INJ 2 MG/ml SYRG IV PRN ×2 (01:45→13:15)
[2025-05-05] MEDS: PANTOPRAZOLE 40 MG/10 ML VIAL INJ IV ONE (03:24)
[2025-05-05] MEDS: PIPERACILLIN-TAZOB 3.375GM 100 ML IV SCH (05:36)
[2025-05-05 07:28] LABS: Hematocrit 27.8 % (36.0-46.0); Hemoglobin 9.5 g/dL (12.2-16.2); Mean Corpuscular Hemoglobin 30.4 pg (28.0-32.0); Mean Corpuscular Volume 88.7 fL (80.0-100.0); Nucleated Red Blood Cells % 0.0 %
[2025-05-05 07:29] LABS: Potassium 4.2 mmol/L (3.5-5.1); Sodium 138 mmol/L (136-145)
[2025-05-05 07:30] LABS: Anion Gap 7 (5-15); Carbon Dioxide 22 mmol/L (20-31)
[2025-05-05] MEDS ORDERED: ERGOCALCIFEROL 50,000 UNIT(1.25MG) CAP PO SCH (07:30)
[2025-05-05 07:35] LABS: BUN/Creatinine Ratio 23.0 (10.0-20.0)
[2025-05-05 07:36] LABS: Blood Urea Nitrogen 23 mg/dL (9-23); Calcium 7.9 mg/dL (8.7-10.4); Chloride 109 mmol/L (98-107); Glucose 115 mg/dL (74-106)
[2025-05-05] MEDS ORDERED: LISI20TA56 PO (08:35)
[2025-05-05] MEDS ORDERED: INSU100I52 (08:36)
[2025-05-05] MEDS ORDERED: GAB100C PO (08:36)
[2025-05-05] MEDS ORDERED: ATOR20TA50 PO (08:36)
[2025-05-05 09:42] LABS: Urine Protein, UAD TRACE (Negative)
[2025-05-05] MEDS ORDERED: VANCOMYCIN PER PHARMACY 0 MG IV SCH (10:00)
[2025-05-05] MEDS ORDERED: LISINOPRIL 5 MG TAB PO SCH (10:00)
[2025-05-05] MEDS: ERGOCALCIFEROL 50,000 UNIT(1.25MG) CAP PO SCH (10:03)
[2025-05-05] MEDS: ENOXAPARIN SOD 40 MG/0.4 ML SYRINGE SC SCH (10:04)
[2025-05-05] MEDS: SODIUM CHLORIDE 0.9% 1,000 ML IV ONE (10:04)
[2025-05-05 10:17] LABS: Opiate Scree,Urine Neg (NEGATIVE)
[2025-05-05 10:23] LABS: Amphetamine Screen, Urine Neg (NEGATIVE); Barbiturate Scree,Urine Neg (NEGATIVE); Cocaine Screen, Urine Neg (NEGATIVE)
[2025-05-05 10:40] LABS: Benzodiazephine Screen, Urine Neg (NEGATIVE); Cannabinoid Screen, Urine Neg (NEGATIVE); Phencyclidine Screen, Urine Neg (NEGATIVE)
--- NOTE | 2025-05-05 11:59 | DVHPNRES ---
Progress Note Date Seen: May 05, 2025 Resident Creating Document: JULITA AQUINO RESIDENT Medical Necessity Reason Pt with a Central, PICC or Fol: No Subjective Review of Systems Ms. Payne is a 40-year-old female with prior medical history of type 2 diabetes mellitus, hypertension, Charcot foot, and previous diabetic foot ulcers, who presents today to the ED with chief complaint of nonhealing wound of the right foot. The patient states that today she had onset of sharp pain of the plantar surface of her right foot, non-radiating, intensity 10/10, aggravated by standing or walking, mildly relieved with the use of tylenol, associated with redness and swelling of the plantar surface of the right foot. Additionally, the patient presented a fever with home temperature reading of 103 F. She was discharged from the this institution on 02/16/2025 due to cellulitis and abscess of the right foot requiring two I and D procedures. Due to persistence of symptoms the patient sought care at the emergency department. On evaluation in the ED, the patient was afebrile, tachycardic, with borderline blood pressures. Initial labs significant for normocytic anemia, neutrophilia, creatinine 1.13, BUN 26, and vitamin-D 10.2. right foot x-ray shows soft tissue prominence along the inferior aspect of the midfoot measuring at least 3.8 x 2.7 cm which could represent fluid collection/abscess, erosive/destructive changes of the 3rd distal phalanx distal tuft which could represent sequelae of infection / osteomyelitis /aggressive process. She was started on IV fluids, IV antibiotics, and IV pain regimen. She was admitted for further workup and management. PMH-hypertension, diabetes mellitus, Charcot foot joint, history of right foot diabetic ulcer PSH- status post incision and drainage for diabetic foot ulcer, appendectomy, cataract removal Allergy- NKDA Personal History/ Social History- denies smoking/alcoholism/drug abuse, lives with family Patient was seen today at the bedside. Cardiovascular- deny acute chest pain or shortness of breath or cough or palpitation Respiratory denies cough or short of breath or wheezing Gastrointestinal- denies any rectal bleeding, nausea or vomiting Neurological- denies acute dysarthria, dysphagia, change in vision Psychiatry- denies depression or SI or HI Skin- denies acute rash or purpura Patient was seen today at bedside, labs and chart reviewed. Patient has right foot swelling, ordered MRI of the right foot with contrast for further evaluation and care, pending podiatry consult. Patient is on Zosyn and vancomycin. Restarted patient's home insulin dose Lantus 20 at night, lispro 10 units before meals. Patient had incision and drainage by Dr. Perez today. Objective vital signs Vital Sign Date Time Temp Pulse Resp B/P (MAP) Pulse Ox O2 Delivery O2 Flow Rate FiO2 05/05/25 09:00 98.4 77 17 118/74 (89) 98 98.4 05/04/25 23:07 Room Air* 0 21 Total Intake and Output 05/04/25 05/04/25 05/05/25 15:00 23:00 07:00 Intake Total 0 ml Balance 0 ml medications Current Medications Medications Dose Ordered Sig/Angelina Route Start Time Stop Time Status Last Admin Dose Admin Enoxaparin Sodium 40 mg DAILY SC 05/05/25 10:00 05/05/25 10:04 40 MG Acetaminophen 650 mg Q6HP PRN PO 05/04/25 22:00 Sodium Chloride 1,000 ml @ 75 mls/hr [id number] IV 05/04/25 22:00 05/05/25 00:23 75 MLS/HR Vancomycin HCl 0 ml @ 0 mls/hr UD IV 05/05/25 10:00 Diagnostic Test (Pha) 1 strip Q6HR 05/05/25 00:00 05/05/25 05:37 1 STRIP Insulin Human Regular Q6HR SC 05/05/25 00:00 05/05/25 00:28 3 UNITS Dextrose 50 ml UD PRN IV 05/04/25 22:00 Piperacillin Sod/ Tazobactam Sod 100 ml @ 25 mls/hr Q8HR IV 05/05/25 06:00 05/05/25 05:36 25 MLS/HR Morphine Sulfate 1 mg Q6HP PRN IV 05/05/25 01:45 Pantoprazole Sodium 40 mg DAILY IV 05/06/25 10:00 Ergocalciferol 50,000 unit Th PO 05/05/25 10:00 05/05/25 10:03 50,000 UNIT Vancomycin HCl 250 ml @ 166.667 mls/hr Q24H IV 05/05/25 19:00 Insulin Glargine 20 units HS SC 05/05/25 22:00 UNV Insulin Human Lispro 10 units AC [place] 05/05/25 17:00 UNV Examination General examination- awake, alert, oriented HEENT- PEERLA, no acute nasal discharge Cardiovascular- S1-S2 audible, rate and rhythm regular, no murmur Respiratory- CTAB, no wheeze or rhonchi Gastrointestinal-nontender, bowel sound+. Nondistended Musculoskeletal-no acute joint swelling or tenderness or redness Lower extremity- right foot plantar surface swollen, edematous, tender to touch, bilateral Charcot joint of ankle Neurological- cranial nerves intact, no acute dysarthria or dysphagia Psychiatry- denies depression or SI or HI Skin- no acute rash or purpura laboratory and microbiology Laboratory Tests 05/05/25 06:11 Test 05/05/25 06:11 Range/Units Serum Glucose 115 H 74-106 mg/dL Problem List/Assessment/Plan Problem List/Assessment/Plan Assessment and plan # right foot osteomyelitis # right foot abscess # right foot diabetic ulcer # right foot swelling and redness likely due to above -Right foot x-ray: Soft tissue prominence in inferior aspect of midfoot 3.8 x 2.7 cm which could represent fluid collection /abscess, erosive/destructive changes of the 3rd distal phalanx distal tuft which could represent sequelae of infection/osteomyelitis/aggressive process -CT scan of the right foot revealed--1. Large plantar soft tissue ulceration and/or abscess allowing for limitation.Extensive destructive Charcot midfoot arthropathy -pending blood culture, wound culture -patient on Zosyn and vancomycin -status post podiatry consult-status post right foot incision and drainage, right foot soft tissue biopsy. 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 # diabetes mellitus type 2 -restarted who patient's home dose of Lantus and lispro along with insulin sliding scale # hypertension -restarted patient's home medication lisinopril # hyperlipidemia - restarted patient's home medication atorvastatin # bilateral Charcot joint -continue current management Goals of care, Code status full code ; discussed with >15 minutes PUD prophylaxis: Pantoprazole DVT prophylaxis: Heparin Plan discussed with Dr. Lucero , nursing staff, Total time spent on patient evaluation, chart review, assessment and plan, discussion discussion >35 minutes Plan discussed with: Patient, Other (RN) My Orders My Orders Orders - JULITA AQUINO Procedure Category Date Status Time Mri R Foot Wo W MRI 05/05/25 Logged Contrast 11:44 Insulin Lantus PHA 05/05/25 Transmitted (Glargine) (Lantus) 22:00 Insulin Lispro PHA 05/05/25 Transmitted (Human) (Humalog) 17:00 Date of Service: May 05, 2025 Billing Provider: MUSHTAQ LUCERO MD Common Visit Codes: [id number] INP/OBS CARE(HIGH) JULITA AQUINO May 05, 2025 11:59 MUSHTAQ LUCERO MD May 11, 2025 22:48
--- NOTE | 2025-05-05 12:44 | DVH ---
EXAM: CT CT R FOOT WO CONTRAST INDICATION: Evaluation for foot abscess TECHNIQUE: Axial images of right foot without contrast have been obtained along with coronal and sagi ttal reformatted images. All CT scans at this facility use dose modulation, iterative reconstruction, and/or weight based dosing when appropriate to reduce radiation dose to as low as reasonably achieva ble. COMPARISON: XY R FOOT 3 VIEW XRAY on DOS: 05/04/25 FINDINGS: BONES: No CT evidence of an acute fracture or aggressive osseous lesion. significant Charcot arthropa thy of the midfoot with the appearance of superior pes planus. Disruption of normal articulation acro ss the tarsometatarsal articulations with significant areas of displacement. No CT evidence of an acu te fracture or aggressive focal osseous lesion. Prominent plantar soft tissue ulceration suspected wi th underlying phlegmon versus drainable fluid collection centered of the subcutaneous adipose tissues of the plantar aspect of the foot measuring up to 4 cm MUSCLES: Fatty atrophy of the intrinsic musculature JOINT SPACES: No tibiotalar joint effusion TENDONS/LIGAMENTS: Limited evaluation however no large area of infectious tenosynovitis OTHER: None. IMPRESSION: 1. Large plantar soft tissue ulceration and/or abscess allowing for limitation. 2. Extensive destructive Charcot midfoot arthropathy
--- NOTE | 2025-05-05 13:03 | DVHCONRES ---
Date Seen: May 05, 2025 Reason for Consultation Right foot wound History of Present Illness Ms. Payne is a 40-year-old female with prior medical history of type 2 diabetes mellitus, hypertension, Charcot foot, and previous diabetic foot ulcers, who presents today to the ED with chief complaint of nonhealing wound of the right foot. The patient states that today she had onset of sharp pain of the plantar surface of her right foot, non-radiating, intensity 10/10, aggravated by standing or walking, mildly relieved with the use of tylenol, associated with redness and swelling of the plantar surface of the right foot. Additionally, the patient presented a fever with home temperature reading of 103 F. She was discharged from the this institution on 02/16/2025 due to cellulitis and abscess of the right foot requiring two I and D procedures. Due to persistence of symptoms the patient sought care at the emergency department. On evaluation in the ED, the patient was afebrile, tachycardic, with borderline blood pressures. Initial labs significant for normocytic anemia, neutrophilia, creatinine 1.13, BUN 26, and vitamin-D 10.2. right foot x-ray shows soft tissue prominence along the inferior aspect of the midfoot measuring at least 3.8 x 2.7 cm which could represent fluid collection/abscess, erosive/destructive changes of the 3rd distal phalanx distal tuft which could represent sequelae of infection / osteomyelitis /aggressive process. She was started on IV fluids, IV antibiotics, and IV pain regimen. She was admitted for further workup and management. Past Medical History See H&P Past Surgical History See H&P Family History: Patient reports no known family medical history. Allergies: Coded Allergies: NO KNOWN ALLERGIES (Unverified , 02/11/25) Home Meds Reported Medications Atorvastatin Calcium (ATORVASTATIN CALCIUM) 20 Mg Tab, 1 TAB PO DAILY 05/05/25 Gabapentin (Gabapentin) 100 Mg Cap, PO 05/05/25 Insulin Lispro (Insulin Lispro) 100 Unit/Ml Inj 05/05/25 Lisinopril (Lisinopril) 20 Mg Tab, 10 TAB PO DAILY, #30 TAB 5 Refills 05/05/25 Current Medications Current Medications Medications (Trade) Dose Ordered Sig/Angelina Route PRN Reason Start Time Stop Time Status Last Admin Enoxaparin Sodium (Lovenox) 40 mg DAILY SC 05/05/25 10:00 05/05/25 11:58 DC 05/05/25 10:04 Acetaminophen (Tylenol Tablet) 650 mg Q6HP PRN PO PAIN SCALE 1-3 OR TEMP>100.4 05/04/25 22:00 Sodium Chloride 1,000 ml @ 75 mls/hr [id number] IV 05/04/25 22:00 05/05/25 00:23 Vancomycin HCl 0 ml @ 0 mls/hr UD IV 05/05/25 10:00 Ceftriaxone Sodium 50 ml @ 100 mls/hr DAILY@09 IV 05/05/25 09:00 05/04/25 22:36 DC Diagnostic Test (Pha) (Accu-Chek Comfort Curve T) 1 strip Q6HR 05/05/25 00:00 05/05/25 12:17 Insulin Human Regular (InsuLIN R) Q6HR SC 05/05/25 00:00 05/05/25 00:28 Dextrose 50 ml UD PRN IV Blood Sugar LESS THAN 60 05/04/25 22:00 Lisinopril (Zestril Tablet) 10 mg DAILY PO 05/05/25 10:00 05/04/25 22:42 DC Piperacillin Sod/ Tazobactam Sod 100 ml @ 25 mls/hr Q8HR IV 05/05/25 06:00 05/05/25 05:36 Morphine Sulfate 1 mg Q6HP PRN IV SEVERE PAIN (7-10 PAIN SCALE) 05/05/25 01:45 Pantoprazole Sodium (Protonix) 40 mg DAILY IV 05/06/25 10:00 Ergocalciferol (Vitamin D 50,000 Unit) 50,000 unit Th PO 05/05/25 10:00 05/05/25 10:03 Ergocalciferol (Vitamin D 50,000 Unit) 50,000 unit Q7D PO 05/05/25 07:30 05/05/25 08:27 DC Vancomycin HCl 250 ml @ 166.667 mls/hr Q24H IV 05/05/25 19:00 Insulin Glargine (Lantus) 20 units HS SC 05/05/25 22:00 UNV Insulin Human Lispro (HumaLOG) 10 units AC SC 05/05/25 17:00 UNV Heparin Sodium (Porcine) 5,000 units Q12HR SC 05/05/25 22:00 UNV Atorvastatin Calcium (Lipitor) 20 mg DAILY PO 05/06/25 10:00 UNV Lisinopril (Zestril Tablet) 200 mg DAILY PO 05/06/25 10:00 UNV Gabapentin (Neurontin Capsule) 10 mg TID PO 05/05/25 14:00 UNV Vital Signs Vital Signs Date Time Temp Pulse Resp B/P (MAP) Pulse Ox O2 Delivery O2 Flow Rate FiO2 05/05/25 13:00 98.2 72 18 132/80 (97) 97 98.2 05/04/25 23:07 Room Air* 0 21 Physical Exam Dermatological: Skin is dry with mild erythema and some maceration around the wound site No gross deformities noted Mild non-pitting edema present bilaterally Right foot plantar swelling and purulence Vascular: Dorsalis pedis and posterior tibial pulses are 1+ bilaterally Capillary refill is under 2 seconds Skin temperature is warm bilaterally Neurologic: Protective sensation is absent on the plantar forefoot bilaterally Monofilament testing reveals decreased sensation in multiple plantar sites Musculoskeletal: Range of motion at the ankle and MTP joints is within normal limits. Strength is 5/5 in all tested muscle groups. Gait is antalgic due to offloading of the affected limb. Labs/Diagnostic Data Labs Test 05/05/25 12:16 05/05/25 08:55 05/05/25 06:11 05/04/25 18:47 Range/Units POC Glucose 99 70-106 mg/dl Urine Color Light-yellow Yellow Urine Clarity Clear Clear Urine pH 5.5 5.0-9.0 Urine Specific Bennett 1.015 1.001-1.035 Urine Protein Trace H Negative Urine Ketones Negative Negative Urine Blood Negative Negative /uL Urine Nitrite Negative Negative Urine Bilirubin Negative Negative Urine Urobilinogen Normal Negative mg/dL Urine Leukocyte Esterase Negative Negative /uL Urine RBC 1 0 - 4 /hpf Urine Microscopic WBC 4 0-5 /HPF Urine Squamous Epithelial Cells Few <5 /hpf Urine Bacteria None seen None Seen /hpf Urine Glucose Normal Normal mg/dL Urine Opiates Screen Neg NEGATIVE Urine Fentanyl Screen Neg NEGATIVE Urine Barbiturates Screen Neg NEGATIVE Urine Phencyclidine Screen Neg NEGATIVE Urine Amphetamines Screen Neg NEGATIVE Urine Benzodiazepines Screen Neg NEGATIVE Urine Cocaine Screen Neg NEGATIVE Urine Cannabinoids Screen Neg NEGATIVE White Blood Count 7.1 # 4.4-10.8 10^3/uL Red Blood Count 3.14 L 4.0-5.20 10^6/uL Hemoglobin 9.5 #L 12.2-16.2 g/dL Hematocrit 27.8 #L 36.0-46.0 % Mean Corpuscular Volume 88.7 80.0-100.0 fL Mean Corpuscular Hemoglobin 30.4 28.0-32.0 pg Mean Corpuscular Hemoglobin Concent 34.3 32.0-36.0 g/dL Red Cell Distribution Width 14.2 11.8-14.3 % Platelet Count 194 140-450 10^3/uL Mean Platelet Volume 9.1 6.9-10.8 fL Neutrophils (%) (Auto) 71.3 37.0-80.0 % Lymphocytes (%) (Auto) 16.7 10.0-50.0 % Monocytes (%) (Auto) 10.6 0.0-12.0 % Eosinophils (%) (Auto) 0.9 0.0-7.0 % Basophils (%) (Auto) 0.5 0.0-2.0 % Neutrophils # (Auto) 5.1 1.6-8.6 10 ^3/uL Lymphocytes # (Auto) 1.2 0.4-5.4 10 ^3/uL Monocytes # (Auto) 0.8 0-1.3 10 ^3/uL Eosinophils # (Auto) 0.1 0-0.8 10 ^3/uL Basophils # (Auto) 0 0-0.2 10 ^3/uL Nucleated Red Blood Cells 0.0 % Sodium Level 138 136-145 mmol/L Potassium Level 4.2 3.5-5.1 mmol/L Chloride Level 109 H 98-107 mmol/L Carbon Dioxide Level 22 20-31 mmol/L Anion Gap 7 5-15 Blood Urea Nitrogen 23 9-23 mg/dL Creatinine 1.00 0.550-1.02 mg/dL Glomerular Filtration Rate Calc 72 >90 mL/min BUN/Creatinine Ratio 23.0 H 10.0-20.0 Serum Glucose 115 H 74-106 mg/dL Calcium Level 7.9 L 8.7-10.4 mg/dL Hemoglobin A1c 6.0 H <5.7 % A1C Lactic Acid Level 1.5 0.4-2.0 mmol/L Phosphorus Level 3.5 2.4-5.1 mg/dL Magnesium Level 1.8 1.6-2.6 mg/dL Total Bilirubin 0.4 0.2-1.0 mg/dL Aspartate Amino Transferase (AST) 22 13-40 U/L Alanine Aminotransferase (ALT) 24 7-40 U/L Alkaline Phosphatase 89 46-116 U/L Total Protein 7.9 5.7-8.2 g/dL Albumin 4.4 3.2-4.8 g/dL Vitamin B12 Level 498 211-911 pg/mL Vitamin D 25-Hydroxy 10.2 L 30.0-100 ng/mL Thyroid Stimulating Hormone (TSH) 1.75 0.55-4.78 uIU/mL Beta HCG, Quantitative < 0.0 L 1.5-4.2 mIU/mL Problems(with codes): (1) UTI (urinary tract infection) (2) Generalized weakness (3) Diabetic foot ulcer (4) Acute renal injury (5) Osteomyelitis of third toe of right foot (6) Cellulitis of right foot Plan/Recommendation ASSESSMENT: Patient is a 40 year old seen on the floor for a worsening ulcer PLAN: - The patients chart was reviewed, clinical findings were discussed with the patient, the etiologies of the conditions were discussed in detail, and a treatment plan was agreed to at this time, with both oral and written instructions provided. - reviewed advanced imaging - discussed plan is to perform an incision and drainage - patient has been NPO since midnight - take him to the OR today - we will get cultures in the OR - can weightbear as tolerated in postoperative shoe All questions were answered and concerns addressed to the patient's satisfaction. The patient was given the phone number to the clinic and was told how to make contact with the clinic should any concerns or questions arise. Patient understands that if any questions or concerns arise prior to the next appointment, we should be contacted immediately. FOLLOW-UP: Continue to follow while inpatient Plan discussed with: Patient Visit Coding Podiatry Date of Service if different f: May 05, 2025 Billing Provider: LAURYN TREJO DPM Podiatry Common Visit Codes: CONSULT ONLY Podiatry Consult Codes: [id number]/OBS [id number] NEW/EST HI 80 LAURYN TREJO DPM May 05, 2025 13:03
[2025-05-05] MEDS ORDERED: ONDANSETRON HCL 4 MG/2 ML VIAL ONE (13:13)
[2025-05-05] MEDS ORDERED: PROPOFOL 10 MG/ML 20 ML IV ONE (13:13)
[2025-05-05] MEDS ORDERED: fentaNYL CITRATE 100 MCG/2 ML VL ONE (13:13)
[2025-05-05] MEDS ORDERED: MIDAZOLAM HCL 2MG/2ML 2ml VIAL (1mg/ml) ONE (13:13)
[2025-05-05] MEDS ORDERED: SODIUM CHLORIDE LOCK 10 ML ONE (13:13)
[2025-05-05] MEDS ORDERED: MORPHINE SULFATE 4 MG/ML SYR/VIAL IV PRN (13:15)
[2025-05-05] MEDS ORDERED: HYDROmorphone HCL 2 MG/ML VL/or syr IV PRN ×2 (13:15)
[2025-05-05] MEDS ORDERED: METOCLOPRAMIDE HCL 5MG/ml INJ 2ml VIAL IV PRN (13:15)
[2025-05-05] MEDS: BUPIVACAINE 0.25% INJ 50ML VIAL IJ ONE (13:46)
--- NOTE | 2025-05-05 13:52 | DVHOP2 ---
Operative Report - 2 Report Details Date: 05/05/25 Preop Diagnosis: 1. Right foot charcot 2. Right foot abscess 3. Right foot cellulitis Postop Diagnosis: Same as preop Surgeon: Lauryn Trejo MD Anesthesiologist: See anesthesia Anesthesia: Mac Consent: The patient was informed of the risks and benefits of the procedure. These include but are not limited to complications of anesthesia, postoperative infection, incomplete relief of symptoms, recurrence of symptoms, damage to blood vessels, nerves and tendons, deep venous thrombosis, pulmonary embolism and possible need for repeat surgery in the future. Complications: None Estimated Blood Loss: Minimal Fluids: See anesthesia Findings: Consistent with diagnosis Indications for Surgery: Worsening abscess Name of Procedure Performed 1. Right foot I&D (62202) 2. Right foot soft tissue biopsy ([id number]) Procedure Details Procedure Details: PRE-PROCEDURE INFORMATION: In the pre-op holding area, the extremity to be operated on was clearly marked and the patient verified correct laterality of the marking. The patient was transferred to the OR table and placed in a supine position. A timeout was performed in which identification of the correct patient, procedure, location, and materials was done. The right foot and leg were prepped and draped in normal sterile fashion. DESCRIPTION OF PROCEDURE: Attention was directed to the right where area of fluctuance was noted. An incision was made over this area and was deepened through blunt dissection. The incision was deepened to the level of abscesses. Care was taken to the dissection to avoid any neurovascular and tendinous structures. The incision was deepened to the of the the abscess with appeared to be purulent fluid consistent with pus. All necrotic tissue was removed with rongeur and sharp dissection. After the abscess was drained, the area was irrigated with 3 L normal saline using cysto tubing. Deep cultures were then obtained from the wound. The area was then inspected and any areas of tracking, especially along the tendons were also drained. The soft tissue mass surrounding the incision was then excised and sent off for pathology. The wound was packed with Betadine-soaked gauze and we will need to be closed at a later date. POSTOPERATIVE INFORMATION: The patient tolerated the above noted procedure and anesthesia well and was transferred to the PACU with vital signs stable, and vascular status intact with capillary refill intact to all digits. Deep cultures were taken. Patient will continue on IV antibiotics. Patient will need subsequent I&D and closure on Friday. Specimen: Right foot soft tissue mass Condition Good Disposition Still a Patient Visit Coding Podiatry Date of Service if different f: May 05, 2025 Billing Provider: LAURYN TREJO DPM Podiatry Common Visit Codes: PROCEDURE ONLY LAURYN TREJO DPM May 05, 2025 13:52
[2025-05-05] MEDS: GABAPENTIN 100 MG CAP PO SCH (14:47)
[2025-05-05] MEDS: INSULIN LISPRO (HUMAN) 100 UNITS/ML ML SC SCH (17:43)
[2025-05-05] MEDS: VANCOMYCIN 1.5GM/250ML 250 ML IV SCH (18:45)
[2025-05-05] MEDS: HEPARIN SODIUM (PORCINE) 5000 UNITS/ML 1ML VIAL SC SCH (22:34)
[2025-05-05] MEDS: INSULIN LANTUS (GLARGINE) 1 /0.01ml (100units/ml) SC SCH (22:40)
[2025-05-06 01:00] VITALS: BP 133/81; PULSE 73; RESP 17; TEMP 97.7; O2SAT 97
[2025-05-06 05:00] VITALS: BP_SYST 150; PULSE 67; RESP 18; TEMP 97.8; O2SAT 96
[2025-05-06 06:38] LABS: Hematocrit 29.6 % (36.0-46.0); Hemoglobin 9.9 g/dL (12.2-16.2); Mean Corpuscular Hemoglobin 29.4 pg (28.0-32.0); Mean Corpuscular Volume 87.9 fL (80.0-100.0); Nucleated Red Blood Cells % 0.0 %
[2025-05-06 06:51] LABS: Alanine Aminotransferase 12 U/L (7-40); Albumin 3.5 g/dL (3.2-4.8); Alkaline Phosphatase 60 U/L (46-116); Anion Gap 7 (5-15); BUN/Creatinine Ratio 12.0 (10.0-20.0); Bilirubin, Total 0.4 mg/dL (0.2-1.0); Blood Urea Nitrogen 10 mg/dL (9-23); Carbon Dioxide 24 mmol/L (20-31); Magnesium 2.0 mg/dL (1.6-2.6); Potassium 4.2 mmol/L (3.5-5.1); Sodium 138 mmol/L (136-145); Total Protein 6.8 g/dL (5.7-8.2)
[2025-05-06 06:52] LABS: Calcium 8.4 mg/dL (8.7-10.4); Chloride 107 mmol/L (98-107); Glucose 130 mg/dL (74-106)
[2025-05-06] MEDS ORDERED: LISI10TA34 PO (08:15)
[2025-05-06 08:48] VITALS: BP 152/86; PULSE 73; RESP 18; TEMP 97.5; O2SAT 100
--- NOTE | 2025-05-06 09:08 | DVHPNRES ---
Progress Note Date Seen: May 06, 2025 Resident Creating Document: JULITA AQUINO RESIDENT Medical Necessity Reason Pt with a Central, PICC or Fol: No Subjective Review of Systems Ms. Payne is a 40-year-old female with prior medical history of type 2 diabetes mellitus, hypertension, Charcot foot, and previous diabetic foot ulcers, who presents today to the ED with chief complaint of nonhealing wound of the right foot. The patient states that today she had onset of sharp pain of the plantar surface of her right foot, non-radiating, intensity 10/10, aggravated by standing or walking, mildly relieved with the use of tylenol, associated with redness and swelling of the plantar surface of the right foot. Additionally, the patient presented a fever with home temperature reading of 103 F. She was discharged from the this institution on 02/16/2025 due to cellulitis and abscess of the right foot requiring two I and D procedures. Due to persistence of symptoms the patient sought care at the emergency department. On evaluation in the ED, the patient was afebrile, tachycardic, with borderline blood pressures. Initial labs significant for normocytic anemia, neutrophilia, creatinine 1.13, BUN 26, and vitamin-D 10.2. right foot x-ray shows soft tissue prominence along the inferior aspect of the midfoot measuring at least 3.8 x 2.7 cm which could represent fluid collection/abscess, erosive/destructive changes of the 3rd distal phalanx distal tuft which could represent sequelae of infection / osteomyelitis /aggressive process. She was started on IV fluids, IV antibiotics, and IV pain regimen. She was admitted for further workup and management. PMH-hypertension, diabetes mellitus, Charcot foot joint, history of right foot diabetic ulcer PSH- status post incision and drainage for diabetic foot ulcer, appendectomy, cataract removal Allergy- NKDA Personal History/ Social History- denies smoking/alcoholism/drug abuse, lives with family Patient was seen today at bedside, labs and chart reviewed. Blood culture negative so far. Patient on IV antibiotic Zosyn and vancomycin. Tolerating well. Pending wound culture. Patient complained of constipation, ordered MiraLax 17 g once, patient was supposed to have wound closure on Friday by P odiatry. Plan is to continue current Objective vital signs Vital Sign Date Time Temp Pulse Resp B/P (MAP) Pulse Ox O2 Delivery O2 Flow Rate FiO2 9/26/25 08:48 97.5 73 18 152/86 (108) 100 97.5 05/05/25 20:00 Room Air* 0 21 Total Intake and Output 05/05/25 05/05/25 05/06/25 15:00 23:00 07:00 Intake Total 25 ml 350 ml 350 ml Balance 25 ml 350 ml 350 ml medications Current Medications Medications Dose Ordered Sig/Angelina Route Start Time Stop Time Status Last Admin Dose Admin Acetaminophen 650 mg Q6HP PRN PO 05/04/25 22:00 Sodium Chloride 1,000 ml @ 75 mls/hr [id number] IV 05/04/25 22:00 05/05/25 00:23 75 MLS/HR Vancomycin HCl 0 ml @ 0 mls/hr UD IV 05/05/25 10:00 Diagnostic Test (Pha) 1 strip Q6HR 05/05/25 00:00 05/06/25 06:37 1 STRIP Insulin Human Regular Q6HR SC 05/05/25 00:00 05/06/25 06:47 2 UNITS Dextrose 50 ml UD PRN IV 05/04/25 22:00 Piperacillin Sod/ Tazobactam Sod 100 ml @ 25 mls/hr Q8HR IV 05/05/25 06:00 05/06/25 06:37 25 MLS/HR Morphine Sulfate 1 mg Q6HP PRN IV 05/05/25 01:45 Pantoprazole Sodium 40 mg DAILY IV 05/06/25 10:00 Ergocalciferol 50,000 unit Th PO 05/05/25 10:00 05/05/25 10:03 50,000 UNIT Vancomycin HCl 250 ml @ 166.667 mls/hr Q24H IV 05/05/25 19:00 05/05/25 18:45 166.667 MLS/HR Insulin Glargine 20 units HS SC 05/05/25 22:00 Insulin Human Lispro 10 units AC SC 05/05/25 17:00 Heparin Sodium (Porcine) 5,000 units Q12HR SC 05/05/25 22:00 05/05/25 22:34 5,000 UNITS Atorvastatin Calcium 20 mg DAILY PO 05/06/25 10:00 Lisinopril 200 mg DAILY PO 05/06/25 10:00 Gabapentin 100 mg TID PO 05/05/25 14:00 05/06/25 06:37 100 MG Examination General examination- awake, alert, oriented HEENT- PEERLA, no acute nasal discharge Cardiovascular- S1-S2 audible, rate and rhythm regular, no murmur Respiratory- CTAB, no wheeze or rhonchi Gastrointestinal-nontender, bowel sound+. Nondistended Musculoskeletal-no acute joint swelling or tenderness or redness Lower extremity- right foot plantar surface swollen, edematous, tender to touch, bilateral Charcot joint of ankle Neurological- cranial nerves intact, no acute dysarthria or dysphagia Psychiatry- denies depression or SI or HI Skin- no acute rash or purpura laboratory and microbiology Laboratory Tests 05/06/25 06:12 Test 05/06/25 06:12 Range/Units Serum Glucose 130 H 74-106 mg/dL Microbiology Date/Time Source Procedure Growth Status 05/04/25 18:47 Blood Blood Culture - Preliminary NO GROWTH AFTER 24 HOURS OF INCUBATION. Resulted Problem List/Assessment/Plan Problem List/Assessment/Plan Assessment and plan # right foot osteomyelitis # right foot abscess # right foot diabetic ulcer # right foot swelling and redness likely due to above -Right foot x-ray: Soft tissue prominence in inferior aspect of midfoot 3.8 x 2.7 cm which could represent fluid collection /abscess, erosive/destructive changes of the 3rd distal phalanx distal tuft which could represent sequelae of infection/osteomyelitis/aggressive process -CT scan of the right foot revealed--1. Large plantar soft tissue ulceration and/or abscess allowing for limitation.Extensive destructive Charcot midfoot arthropathy -pending blood culture, wound culture -patient on Zosyn and vancomycin -status post podiatry consult-status post right foot incision and drainage, right foot soft tissue biopsy. Podiatry Plan is to do vocational guidance counselor Friday. #JENNA Likey due to VMN -avoid dehydration and Nephrotoxic meds # diabetes mellitus type 2 -restarted who patient's home dose of Lantus and lispro along with insulin sliding scale # hypertension -restarted patient's home medication lisinopril # hyperlipidemia - restarted patient's home medication atorvastatin # bilateral Charcot joint -continue current management Goals of care, Code status full code ; discussed with >15 minutes PUD prophylaxis: Pantoprazole DVT prophylaxis: Heparin Plan discussed with Dr. Mcdowell , nursing staff, Total time spent on patient evaluation, chart review, assessment and plan, discussion discussion >35 minutes Plan discussed with: Patient, Other (RN) My Orders My Orders Orders - JULITA AQUINO Procedure Category Date Status Time Insulin Lantus PHA 05/05/25 In Process (Glargine) (Lantus) 22:00 Insulin Lispro PHA 05/05/25 In Process (Human) (Humalog) 17:00 Heparin Sodium PHA 05/05/25 In Process (Porcine) 22:00 Atorvastatin (Lipitor) PHA 05/06/25 In Process 10:00 Lisinopril Tablet PHA 05/06/25 In Process (Zestril Tablet) 10:00 Gabapentin Capsule PHA 05/05/25 In Process (Neurontin Capsule) 14:00 Date of Service: May 06, 2025 Billing Provider: MUSHTAQ MCDOWELL MD Common Visit Codes: [id number] INP/OBS CARE(HIGH) JULITA AQUINO May 06, 2025 09:08 MUSHTAQ MCDOWELL MD May 11, 2025 23:25
[2025-05-06] MEDS ORDERED: LISINOPRIL 20 MG TAB PO SCH (10:00)
[2025-05-06] MEDS: ATORVASTATIN 20 MG TAB PO SCH (11:08)
[2025-05-06] MEDS: PANTOPRAZOLE 40 MG/10 ML VIAL INJ IV SCH (11:09)
[2025-05-06] MEDS: LISINOPRIL 5 MG TAB PO ONE (11:15)
[2025-05-06] MEDS: VANCOMYCIN HCL 1000 MG VL ONE (12:06)
[2025-05-06] MEDS: BUPIVACAINE 0.25% INJ 50ML VIAL ONE (12:06)
[2025-05-06] MEDS: KETOROLAC TROMETH 30 MG/ML 1ML VIAL IV ONE (12:06)
[2025-05-06] MEDS: ACCU-CHEK COMFORT CURVE STRIP VI ONE (12:07)
[2025-05-06] MEDS: ceFAZolin 2 GM/D5W50ml 50 ML IV ONE (12:07)
[2025-05-06] MEDS: POLYETHYLENE GLYCOL 17 GM PWDR PO ONE (12:25)
[2025-05-06 12:30] VITALS: BP 153/86; PULSE 66; RESP 18; TEMP 97.9; O2SAT 98
[2025-05-06 12:38] LABS: Total Iron Binding Capacity 260.0 ug/dL (250-425)
[2025-05-06 13:34] LABS: Iron 25.0 ug/dL (50-170)
[2025-05-06 17:00] VITALS: BP_SYST 121; BP_DIAS 22; BP_DIAS 72; PULSE 69; RESP 18; TEMP 98.1; O2SAT 98
[2025-05-06 21:00] VITALS: BP 128/66; PULSE 70; RESP 18; TEMP 98.2; O2SAT 99
[2025-05-07] VITALS (8 sets, daily range): BP systolic 120–155; BP diastolic 73–100; PULSE 67–71; RESP 16–20; TEMP 97.7–98.5; O2SAT 97–100
[2025-05-07 07:26] LABS: Hematocrit 31.6 % (36.0-46.0); Hemoglobin 10.7 g/dL (12.2-16.2); Mean Corpuscular Hemoglobin 29.8 pg (28.0-32.0); Mean Corpuscular Volume 87.9 fL (80.0-100.0); Nucleated Red Blood Cells % 0.0 %
[2025-05-07 07:36] LABS: Chloride 105 mmol/L (98-107); Potassium 4.3 mmol/L (3.5-5.1); Sodium 139 mmol/L (136-145)
[2025-05-07 07:37] LABS: Anion Gap 8 (5-15); Calcium 8.9 mg/dL (8.7-10.4); Carbon Dioxide 26 mmol/L (20-31)
[2025-05-07 07:43] LABS: Glucose 167 mg/dL (74-106); Magnesium 2.0 mg/dL (1.6-2.6)
[2025-05-07 07:44] LABS: BUN/Creatinine Ratio 18.3 (10.0-20.0); Blood Urea Nitrogen 17 mg/dL (9-23)
[2025-05-07] MEDS: LISINOPRIL 5 MG TAB PO SCH (10:46)
[2025-05-07] MEDS: INSULIN LISPRO (HUMAN) 100 UNITS/ML ML SC SCH (12:06)
[2025-05-07] MEDS: INSULIN LANTUS (GLARGINE) 1 /0.01ml (100units/ml) SC SCH (12:07)
--- NOTE | 2025-05-07 13:11 | DVHPNRES ---
Progress Note Date Seen: May 07, 2025 Resident Creating Document: ROSENDO ZABALA RESIDENT Medical Necessity Reason Pt with a Central, PICC or Fol: No Subjective Review of Systems Ms. Payne is a 40-year-old female with prior medical history of type 2 diabetes mellitus, hypertension, Charcot foot, and previous diabetic foot ulcers, who presents today to the ED with chief complaint of nonhealing wound of the right foot. The patient states that today she had onset of sharp pain of the plantar surface of her right foot, non-radiating, intensity 10/10, aggravated by standing or walking, mildly relieved with the use of tylenol, associated with redness and swelling of the plantar surface of the right foot. Additionally, the patient presented a fever with home temperature reading of 103 F. She was discharged from the this institution on 02/16/2025 due to cellulitis and abscess of the right foot requiring two I and D procedures. Due to persistence of symptoms the patient sought care at the emergency department. On evaluation in the ED, the patient was afebrile, tachycardic, with borderline blood pressures. Initial labs significant for normocytic anemia, neutrophilia, creatinine 1.13, BUN 26, and vitamin-D 10.2. right foot x-ray shows soft tissue prominence along the inferior aspect of the midfoot measuring at least 3.8 x 2.7 cm which could represent fluid collection/abscess, erosive/destructive changes of the 3rd distal phalanx distal tuft which could represent sequelae of infection / osteomyelitis /aggressive process. She was started on IV fluids, IV antibiotics, and IV pain regimen. She was admitted for further workup and management. PMH-hypertension, diabetes mellitus, Charcot foot joint, history of right foot diabetic ulcer PSH- status post incision and drainage for diabetic foot ulcer, appendectomy, cataract removal Allergy- NKDA Personal History/ Social History- denies smoking/alcoholism/drug abuse, lives with family Patient was seen and examined by me at the bedside today. No new active complaints. In the afternoon her blood pressure went to 190/102 BG and for that we gave amlodipine 5 mg which will be continued daily. We monitored blood sugar levels and changed Lantus from 20-10 units and lispro to 3 units. Patient to undergo wound closure on Friday by Podiatry Objective vital signs Vital Sign Date Time Temp Pulse Resp B/P (MAP) Pulse Ox O2 Delivery O2 Flow Rate FiO2 05/07/25 13:00 98.1 67 18 154/100 (118) 100 98.1 05/07/25 08:12 Room Air* 0 21 Total Intake and Output 05/06/25 05/06/25 05/07/25 15:00 23:00 07:00 Intake Total 100 ml 1230 ml 700 ml Balance 100 ml 1230 ml 700 ml medications Current Medications Medications Dose Ordered Sig/Angelina Route Start Time Stop Time Status Last Admin Dose Admin Acetaminophen 650 mg Q6HP PRN PO 05/04/25 22:00 Sodium Chloride 1,000 ml @ 75 mls/hr [id number] IV 05/04/25 22:00 05/06/25 13:25 75 MLS/HR Vancomycin HCl 0 ml @ 0 mls/hr UD IV 05/05/25 10:00 Diagnostic Test (Pha) 1 strip Q6HR 05/05/25 00:00 05/07/25 06:39 1 STRIP Insulin Human Regular Q6HR SC 05/05/25 00:00 05/07/25 12:08 3 UNITS Dextrose 50 ml UD PRN IV 05/04/25 22:00 Piperacillin Sod/ Tazobactam Sod 100 ml @ 25 mls/hr Q8HR IV 05/05/25 06:00 05/07/25 06:37 25 MLS/HR Morphine Sulfate 1 mg Q6HP PRN IV 05/05/25 01:45 Pantoprazole Sodium 40 mg DAILY IV 05/06/25 10:00 05/07/25 10:46 40 MG Ergocalciferol 50,000 unit Th PO 05/05/25 10:00 05/05/25 10:03 50,000 UNIT Vancomycin HCl 250 ml @ 166.667 mls/hr Q24H IV 05/05/25 19:00 05/06/25 18:30 166.667 MLS/HR Heparin Sodium (Porcine) 5,000 units Q12HR SC 05/05/25 22:00 05/07/25 10:56 5,000 UNITS Atorvastatin Calcium 20 mg DAILY PO 05/06/25 10:00 05/07/25 10:46 20 MG Gabapentin 100 mg TID PO 05/05/25 14:00 05/07/25 06:37 100 MG Lisinopril 10 mg DAILY PO 05/07/25 10:00 05/07/25 10:46 10 MG Insulin Glargine 10 units HS SC 05/07/25 11:00 05/07/25 12:07 10 UNITS Insulin Human Lispro 3 units AC SC 05/07/25 11:00 05/07/25 12:06 3 UNITS Amlodipine Besylate 5 mg DAILY PO 05/08/25 10:00 Examination General examination- awake, alert, oriented HEENT- PEERLA, no acute nasal discharge Cardiovascular- S1-S2 audible, rate and rhythm regular, no murmur Respiratory- CTAB, no wheeze or rhonchi Gastrointestinal-nontender, bowel sound+. Nondistended Musculoskeletal-no acute joint swelling or tenderness or redness Lower extremity-bandage placed on right foot, no leaking or bleeding seen Neurological- cranial nerves intact, no acute dysarthria or dysphagia Psychiatry- denies depression or SI or HI Skin- no acute rash or purpura laboratory and microbiology Laboratory Tests 05/07/25 06:30 Test 05/07/25 06:30 Range/Units Serum Glucose 167 H 74-106 mg/dL Microbiology Date/Time Source Procedure Growth Status 05/05/25 13:44 Foot Right Gram Stain - Final Resulted 05/05/25 13:44 Foot Right Anaerobic Culture - Preliminary Resulted 05/05/25 13:44 Foot Right Aerobic Culture - Preliminary Resulted 05/04/25 18:47 Blood Blood Culture - Preliminary NO GROWTH AFTER 48 HOURS OF INCUBATION. Resulted Labs and/or images reviewed: Labs reviewed by me, Image(s) reviewed by me Problem List/Assessment/Plan Problem List/Assessment/Plan Assessment and plan # right foot osteomyelitis # right foot abscess # right foot diabetic ulcer # right foot swelling and redness likely due to above -Right foot x-ray: Soft tissue prominence in inferior aspect of midfoot 3.8 x 2.7 cm which could represent fluid collection /abscess, erosive/destructive changes of the 3rd distal phalanx distal tuft which could represent sequelae of infection/osteomyelitis/aggressive process -CT scan of the right foot revealed--1. Large plantar soft tissue ulceration and/or abscess allowing for limitation.Extensive destructive Charcot midfoot arthropathy -pending blood culture, wound culture -patient on Zosyn and vancomycin -status post podiatry consult-status post right foot incision and drainage, right foot soft tissue biopsy. Podiatry Plan is to do professional system administrator Friday. #JENNA Likey due to VMN -avoid dehydration and Nephrotoxic meds # diabetes mellitus type 2 -changed to Lantus 10 units and lispro 3 units along with insulin sliding scale # hypertension -restarted patient's home medication lisinopril -started Amlodipine 5 mg per orally # hyperlipidemia - restarted patient's home medication atorvastatin # bilateral Charcot joint -continue current management Goals of care, Code status full code ; discussed with >15 minutes PUD prophylaxis: Pantoprazole DVT prophylaxis: Heparin Plan discussed with Dr. Mcdowell , nursing staff, Total time spent on patient evaluation, chart review, assessment and plan, discussion discussion >35 minutes Plan discussed with: Patient, Other (rn) My Orders My Orders Orders - ROSENDO ZABALA Procedure Category Date Status Time Insulin Lantus PHA 05/07/25 In Process (Glargine) (Lantus) 11:00 Insulin Lispro PHA 05/07/25 In Process (Human) (Humalog) 11:00 Amlodipine Tablet PHA 05/08/25 In Process (Norvasc Tablet) 10:00 Dietary Evaluation Review Comments: Nutrition Recommendation: 1) CCHO 60gm + 2gm Na 2) Rodriguez 1 pk BID 3) Refer Husker Operator for diabetes education Expected Outcomes/Goals: Wound to improve Fu 3-5 days Date of Service: May 07, 2025 Billing Provider: MUSHTAQ MCDOWELL MD Common Visit Codes: [id number] INP/OBS CARE(HIGH) ROSENDO ZABALA May 07, 2025 13:11 MUSHTAQ MCDOWELL MD May 11, 2025 23:32
[2025-05-07] MEDS ORDERED: VANCOMYCIN 1GM/250ML KIT 250 ML IV ONE (18:45)
[2025-05-07] MEDS: VANCOMYCIN 1GM/250ML KIT 250 ML IV SCH (18:53)
[2025-05-08] VITALS (8 sets, daily range): BP systolic 99–151; BP diastolic 61–93; PULSE 63–83; RESP 16–18; TEMP 97.5–99.4; O2SAT 97–100
[2025-05-08] MEDS: ACETAMINOPHEN 325 MG TAB PO PRN (06:17)
[2025-05-08 07:50] LABS: Anion Gap 8 (5-15); Carbon Dioxide 26 mmol/L (20-31); Chloride 105 mmol/L (98-107); Potassium 4.2 mmol/L (3.5-5.1); Sodium 139 mmol/L (136-145)
[2025-05-08 07:52] LABS: Calcium 8.8 mg/dL (8.7-10.4)
[2025-05-08 07:57] LABS: BUN/Creatinine Ratio 15.0 (10.0-20.0); Blood Urea Nitrogen 15 mg/dL (9-23)
[2025-05-08 07:58] LABS: Glucose 169 mg/dL (74-106)
[2025-05-08 07:59] LABS: Hematocrit 30.7 % (36.0-46.0); Hemoglobin 10.6 g/dL (12.2-16.2); Mean Corpuscular Hemoglobin 30.2 pg (28.0-32.0); Mean Corpuscular Volume 87.3 fL (80.0-100.0); Nucleated Red Blood Cells % 0.1 %
[2025-05-08] MEDS: ENOXAPARIN SOD 40 MG/0.4 ML SYRINGE SC SCH (10:30)
--- NOTE | 2025-05-08 10:35 | DVHPNRES ---
Progress Note Date Seen: May 08, 2025 Resident Creating Document: JULITA AQUINO RESIDENT Medical Necessity Reason Pt with a Central, PICC or Fol: No Subjective Review of Systems Ms. Payne is a 40-year-old female with prior medical history of type 2 diabetes mellitus, hypertension, Charcot foot, and previous diabetic foot ulcers, who presents today to the ED with chief complaint of nonhealing wound of the right foot. The patient states that today she had onset of sharp pain of the plantar surface of her right foot, non-radiating, intensity 10/10, aggravated by standing or walking, mildly relieved with the use of tylenol, associated with redness and swelling of the plantar surface of the right foot. Additionally, the patient presented a fever with home temperature reading of 103 F. She was discharged from the this institution on 02/16/2025 due to cellulitis and abscess of the right foot requiring two I and D procedures. Due to persistence of symptoms the patient sought care at the emergency department. On evaluation in the ED, the patient was afebrile, tachycardic, with borderline blood pressures. Initial labs significant for normocytic anemia, neutrophilia, creatinine 1.13, BUN 26, and vitamin-D 10.2. right foot x-ray shows soft tissue prominence along the inferior aspect of the midfoot measuring at least 3.8 x 2.7 cm which could represent fluid collection/abscess, erosive/destructive changes of the 3rd distal phalanx distal tuft which could represent sequelae of infection / osteomyelitis /aggressive process. She was started on IV fluids, IV antibiotics, and IV pain regimen. She was admitted for further workup and management. PMH-hypertension, diabetes mellitus, Charcot foot joint, history of right foot diabetic ulcer PSH- status post incision and drainage for diabetic foot ulcer, appendectomy, cataract removal Allergy- NKDA Personal History/ Social History- denies smoking/alcoholism/drug abuse, lives with family Patient was seen today at bedside, labs and chart reviewed. Blood culture negative so far. Patient on IV antibiotic Zosyn and vancomycin. Tolerating well. Pending wound culture. Patient complained of constipation, ordered MiraLax 17 g once, patient was supposed to have wound closure on Friday by P odiatry. Plan is to continue current management. Possible wound closure tomorrow by Podiatry. Wound culture revealed Streptococcus constant mellitus, bacteria fragile X, Staphylococcus aureus, Enterobacter Colace. Objective vital signs Vital Sign Date Time Temp Pulse Resp B/P (MAP) Pulse Ox O2 Delivery O2 Flow Rate FiO2 05/08/25 10:31 117/69 05/08/25 08:53 99.4 71 18 99 99.4 05/07/25 20:00 Room Air* 0 21 Total Intake and Output 05/07/25 05/07/25 05/08/25 15:00 23:00 07:00 Intake Total 100 ml 1030 ml 750 ml Balance 100 ml 1030 ml 750 ml medications Current Medications Medications Dose Ordered Sig/Angelina Route Start Time Stop Time Status Last Admin Dose Admin Acetaminophen 650 mg Q6HP PRN PO 05/04/25 22:00 05/08/25 06:17 650 MG Vancomycin HCl 0 ml @ 0 mls/hr UD IV 05/05/25 10:00 Diagnostic Test (Pha) 1 strip Q6HR 05/05/25 00:00 05/08/25 05:24 1 STRIP Insulin Human Regular Q6HR SC 05/05/25 00:00 05/08/25 06:08 3 UNITS Dextrose 50 ml UD PRN IV 05/04/25 22:00 Morphine Sulfate 1 mg Q6HP PRN IV 05/05/25 01:45 Pantoprazole Sodium 40 mg DAILY IV 05/06/25 10:00 05/08/25 10:30 40 MG Ergocalciferol 50,000 unit Th PO 05/05/25 10:00 05/05/25 10:03 50,000 UNIT Atorvastatin Calcium 20 mg DAILY PO 05/06/25 10:00 05/08/25 10:30 20 MG Gabapentin 100 mg TID PO 05/05/25 14:00 05/08/25 05:23 100 MG Lisinopril 10 mg DAILY PO 05/07/25 10:00 05/08/25 10:31 10 MG Insulin Glargine 10 units HS SC 05/07/25 11:00 05/07/25 12:07 10 UNITS Insulin Human Lispro 3 units AC SC 05/07/25 11:00 05/08/25 06:09 3 UNITS Amlodipine Besylate 5 mg DAILY PO 05/08/25 10:00 05/08/25 10:30 5 MG Enoxaparin Sodium 40 mg DAILY SC 05/08/25 10:00 05/08/25 10:30 40 MG Vancomycin HCl 250 ml @ 250 mls/hr Q12H IV 05/07/25 18:45 05/08/25 05:23 250 MLS/HR Examination General examination- awake, alert, oriented HEENT- PEERLA, no acute nasal discharge Cardiovascular- S1-S2 audible, rate and rhythm regular, no murmur Respiratory- CTAB, no wheeze or rhonchi Gastrointestinal-nontender, bowel sound+. Nondistended Musculoskeletal-no acute joint swelling or tenderness or redness Lower extremity- right foot plantar surface swollen, edematous, tender to touch, bilateral Charcot joint of ankle Neurological- cranial nerves intact, no acute dysarthria or dysphagia Psychiatry- denies depression or SI or HI Skin- no acute rash or purpura laboratory and microbiology Laboratory Tests 05/08/25 06:41 Test 05/08/25 06:41 Range/Units Serum Glucose 169 H 74-106 mg/dL Microbiology Date/Time Source Procedure Growth Status 05/05/25 13:44 Foot Right Gram Stain - Final Resulted 05/05/25 13:44 Foot Right Anaerobic Culture - Preliminary Resulted 05/05/25 13:44 Aerobic Culture - Preliminary Staphylococcus aureus Resulted 05/04/25 18:47 Blood Blood Culture - Preliminary NO GROWTH AFTER 72 HOURS OF INCUBATION. Resulted Problem List/Assessment/Plan Problem List/Assessment/Plan Assessment and plan-possible wound closure by Dr. Hickman tomorrow on Friday # right foot osteomyelitis # right foot abscess # right foot diabetic ulcer # right foot swelling and redness likely due to above -Right foot x-ray: Soft tissue prominence in inferior aspect of midfoot 3.8 x 2.7 cm which could represent fluid collection /abscess, erosive/destructive changes of the 3rd distal phalanx distal tuft which could represent sequelae of infection/osteomyelitis/aggressive process -CT scan of the right foot revealed--1. Large plantar soft tissue ulceration and/or abscess allowing for limitation.Extensive destructive Charcot midfoot arthropathy - blood culture-no growth wound culture-Wound culture revealed Streptococcus constant mellitus, bacteria fragile X, Staphylococcus aureus, Enterobacter Colace. -patient on Zosyn and vancomycin -status post podiatry consult-status post right foot incision and drainage, right foot soft tissue biopsy. Podiatry Plan is to do treasury management sales consultant Friday. #JENNA Likey due to VMN -avoid dehydration and Nephrotoxic meds # diabetes mellitus type 2 -restarted who patient's home dose of Lantus and lispro along with insulin sliding scale # hypertension -restarted patient's home medication lisinopril # hyperlipidemia - restarted patient's home medication atorvastatin # bilateral Charcot joint -continue current management Goals of care, Code status full code ; discussed with >15 minutes PUD prophylaxis: Pantoprazole DVT prophylaxis: Heparin Plan discussed with Dr. Lucero , nursing staff, Total time spent on patient evaluation, chart review, assessment and plan, discussion discussion >35 minutes Plan discussed with: Patient, Other (RN) Dietary Evaluation Review Comments: Nutrition Recommendation: 1) CCHO 60gm + 2gm Na 2) Rodriguez 1 pk BID 3) Refer Emulsification Operator for diabetes education Expected Outcomes/Goals: Wound to improve Fu 3-5 days Date of Service: May 08, 2025 Billing Provider: MUSHTAQ LUCERO MD Common Visit Codes: [id number] INP/OBS CARE(HIGH) JULITA AQUINO RESIDENT May 08, 2025 10:35 MUSHTAQ LUCERO MD May 11, 2025 23:41
[2025-05-08] MEDS ORDERED: PIPERACILLIN-TAZOB 3.375GM 100 ML IV SCH ×2 (16:15→16:30)
[2025-05-08] MEDS: VANCOMYCIN 1GM/250ML KIT 250 ML IV SCH (19:41)
[2025-05-08] MEDS ORDERED: CEFEPIME 2GM/50ML NS 50 ML IV SCH (22:00)
[2025-05-08] MEDS: PIPERACILLIN-TAZOB 3.375GM 100 ML IV SCH (22:33)
[2025-05-09] VITALS (9 sets, daily range): BP systolic 98–156; BP diastolic 56–86; PULSE 62–77; RESP 14–17; TEMP 97.4–98.4; O2SAT 97–100
[2025-05-09 02:47] LABS: Hematocrit 31.4 % (36.0-46.0); Hemoglobin 10.4 g/dL (12.2-16.2); Mean Corpuscular Hemoglobin 29.2 pg (28.0-32.0); Mean Corpuscular Volume 88.0 fL (80.0-100.0); Nucleated Red Blood Cells % 0.1 %
[2025-05-09 02:56] LABS: Chloride 105 mmol/L (98-107); Potassium 4.3 mmol/L (3.5-5.1); Sodium 141 mmol/L (136-145)
[2025-05-09 02:57] LABS: Anion Gap 7 (5-15); Carbon Dioxide 29 mmol/L (20-31)
[2025-05-09 03:00] LABS: INR 0.97 (0.9-1.15); Partial Thromboplastin Time 28.2 SEC (24.5-34.5); Prothrombin Time 10.3 sec (9.3-11.8)
[2025-05-09 03:02] LABS: BUN/Creatinine Ratio 12.9 (10.0-20.0); Blood Urea Nitrogen 18 mg/dL (9-23); Calcium 8.6 mg/dL (8.7-10.4)
[2025-05-09 03:08] LABS: Glucose 231 mg/dL (74-106)
[2025-05-09] MEDS: SODIUM CHLORIDE 0.9% 1,000 ML IV ONE ×2 (07:04→09:45)
--- NOTE | 2025-05-09 11:42 | DVHPN2 ---
Subjective Ms. Payne is a 40-year-old female with prior medical history of type 2 diabetes mellitus, hypertension, Charcot foot, and previous diabetic foot ulcers, who presents today to the ED with chief complaint of nonhealing wound of the right foot. The patient states that today she had onset of sharp pain of the plantar surface of her right foot, non-radiating, intensity 10/10, aggravated by standing or walking, mildly relieved with the use of tylenol, associated with redness and swelling of the plantar surface of the right foot. Additionally, the patient presented a fever with home temperature reading of 103 F. She was discharged from the this institution on 02/16/2025 due to cellulitis and abscess of the right foot requiring two I and D procedures. Due to persistence of symptoms the patient sought care at the emergency department. On evaluation in the ED, the patient was afebrile, tachycardic, with borderline blood pressures. Initial labs significant for normocytic anemia, neutrophilia, creatinine 1.13, BUN 26, and vitamin-D 10.2. right foot x-ray shows soft tissue prominence along the inferior aspect of the midfoot measuring at least 3.8 x 2.7 cm which could represent fluid collection/abscess, erosive/destructive changes of the 3rd distal phalanx distal tuft which could represent sequelae of infection / osteomyelitis /aggressive process. She was started on IV fluids, IV antibiotics, and IV pain regimen. She was admitted for further workup and management. Changes from previous H/P or p: No Changes Objective Vitals Vital Signs Date Time Temp Pulse Resp B/P (MAP) Pulse Ox O2 Delivery O2 Flow Rate FiO2 05/09/25 09:00 98.3 72 17 148/86 (106) 98 98.3 05/09/25 08:00 Room Air* 0 21 Intake/Output Intake and Output 05/09/25 07:00 Intake Total 1510 ml Output Total 675 ml Balance 835 ml Intake Oral 1160 ml IV Total 350 ml Output Urine Total 675 ml # Voids 3 Exam Dermatological: Skin is dry with mild erythema and some maceration around the wound site No gross deformities noted Mild non-pitting edema present bilaterally Right plantar foot incision Vascular: Dorsalis pedis and posterior tibial pulses are 1+ bilaterally Capillary refill is under 2 seconds Skin temperature is warm bilaterally Neurologic: Protective sensation is absent on the plantar forefoot bilaterally Monofilament testing reveals decreased sensation in multiple plantar sites Musculoskeletal: Range of motion at the ankle and MTP joints is within normal limits. Strength is 5/5 in all tested muscle groups. Gait is antalgic due to offloading of the affected limb. Medications Current Medications Medications Dose Ordered Sig/Angelina Route Start Time Stop Time Status Last Admin Dose Admin Acetaminophen 650 mg Q6HP PRN PO 05/04/25 22:00 05/08/25 06:17 650 MG Vancomycin HCl 0 ml @ 0 mls/hr UD IV 05/05/25 10:00 Diagnostic Test (Pha) 1 strip Q6HR 05/05/25 00:00 05/09/25 05:27 1 STRIP Insulin Human Regular Q6HR SC 05/05/25 00:00 05/08/25 18:02 3 UNITS Dextrose 50 ml UD PRN IV 05/04/25 22:00 Morphine Sulfate 1 mg Q6HP PRN IV 05/05/25 01:45 Pantoprazole Sodium 40 mg DAILY IV 05/06/25 10:00 05/09/25 09:44 40 MG Ergocalciferol 50,000 unit Th PO 05/05/25 10:00 05/05/25 10:03 50,000 UNIT Atorvastatin Calcium 20 mg DAILY PO 05/06/25 10:00 05/08/25 10:30 20 MG Gabapentin 100 mg TID PO 05/05/25 14:00 05/09/25 05:26 100 MG Lisinopril 10 mg DAILY PO 05/07/25 10:00 05/08/25 10:31 10 MG Insulin Glargine 10 units HS SC 05/07/25 11:00 05/07/25 12:07 10 UNITS Insulin Human Lispro 3 units AC SC 05/07/25 11:00 05/08/25 17:00 3 UNITS Amlodipine Besylate 5 mg DAILY PO 05/08/25 10:00 05/08/25 10:30 5 MG Enoxaparin Sodium 40 mg DAILY SC 05/08/25 10:00 05/09/25 09:44 40 MG Piperacillin Sod/ Tazobactam Sod 100 ml @ 25 mls/hr Q8HR IV 05/08/25 22:00 05/09/25 07:07 25 MLS/HR Vancomycin HCl 250 ml @ 200 mls/hr Q12H IV 05/08/25 19:00 05/09/25 06:06 200 MLS/HR Laboratory Results Laboratory Tests 05/09/25 02:30 Chemistry Test 05/09/25 02:30 Calcium Level 8.6 mg/dL (8.7-10.4) L Coagulation Test 05/09/25 02:30 Prothrombin Time 10.3 sec (9.3-11.8) Prothrombin Time INR 0.97 (0.9-1.15) Activated Partial Thromboplast Time 28.2 SEC (24.5-34.5) Urinalysis Test 05/05/25 08:55 Urine Color Light-yellow (Yellow) Urine Clarity Clear (Clear) Urine pH 5.5 (5.0-9.0) Urine Specific Alloy 1.015 (1.001-1.035) Urine Protein Trace (Negative) H Urine Ketones Negative (Negative) Urine Blood Negative /uL (Negative) Urine Nitrite Negative (Negative) Urine Bilirubin Negative (Negative) Urine Urobilinogen Normal mg/dL (Negative) Urine Leukocyte Esterase Negative /uL (Negative) Urine RBC 1 /hpf (0 - 4) Urine Microscopic WBC 4 /HPF (0-5) Urine Squamous Epithelial Cells Few /hpf (<5) Urine Bacteria None seen /hpf (None Seen) Urine Glucose Normal mg/dL (Normal) Microbiology Microbiology Date/Time Source Procedure Growth Status 05/05/25 13:44 Foot Right Gram Stain - Final Complete 05/05/25 13:44 Anaerobic Culture - Final Streptococcus constellatus Bacteroides fragilis Complete 05/05/25 13:44 Aerobic Culture - Final Staphylococcus aureus Enterobacter cloacae Complete 05/04/25 18:47 Blood Blood Culture - Preliminary NO GROWTH AFTER 72 HOURS OF INCUBATION. Resulted Assessment/Plan Assessment/Plan ASSESSMENT: Patient is a 40 year old seen on the floor follow up s/p foot I&D PLAN: - The patients chart was reviewed, clinical findings were discussed with the patient, the etiologies of the conditions were discussed in detail, and a treatment plan was agreed to at this time, with both oral and written instructions provided. - reviewed advanced imaging - reviewed all of the labs and pathology - discussed plan is to perform a subsequent incision and drainage - patient has been NPO since midnight - take him to the OR today - it was determined that multiple I&Ds will be necessary to save the limb - can weightbear as tolerated in postoperative shoe All questions were answered and concerns addressed to the patient's satisfaction. The patient was given the phone number to the clinic and was told how to make contact with the clinic should any concerns or questions arise. Patient understands that if any questions or concerns arise prior to the next appointment, we should be contacted immediately. FOLLOW-UP: Continue to follow while inpatient Plan discussed with: Patient My Orders Orders - LAURYN TREJO DPM Procedure Category Date Status Time Obtain Consent For: ORDERS 05/08/25 Transmitted 12:32 Problem List: (1) Diabetic foot ulcer (2) Acute renal injury (3) Osteomyelitis of third toe of right foot (4) Cellulitis of right foot (5) Generalized weakness (6) UTI (urinary tract infection) Visit Coding Podiatry Date of Service if different f: May 09, 2025 Billing Provider: LAURYN TREJO DPM Podiatry Common Visit Codes: 49180-[id number] INP/OBS CARE(HIGH) LAURYN TREJO DPM May 09, 2025 11:42
[2025-05-09] MEDS ORDERED: fentaNYL CITRATE 100 MCG/2 ML VL ONE (12:05)
[2025-05-09] MEDS ORDERED: MIDAZOLAM HCL 2MG/2ML 2ml VIAL (1mg/ml) ONE (12:05)
[2025-05-09] MEDS ORDERED: ONDANSETRON HCL 4 MG/2 ML VIAL ONE (12:06)
[2025-05-09] MEDS ORDERED: LIDOCAINE 2% (LOCAL ANESTH.) PF 5ml SDV ONE (12:06)
[2025-05-09] MEDS ORDERED: PROPOFOL 10 MG/ML 20 ML IV ONE (12:06)
[2025-05-09] MEDS ORDERED: METOCLOPRAMIDE HCL 5MG/ml INJ 2ml VIAL ONE (12:06)
[2025-05-09] MEDS: BUPIVACAINE 0.5% P/F INJ 10 ML VIAL ONE (12:15)
--- NOTE | 2025-05-09 12:23 | DVHOP2 ---
Operative Report - 2 Report Details Date: 05/09/25 Preop Diagnosis: 1. Right foot charcot 2. Right foot abscess 3. Right foot cellulitis Postop Diagnosis: Same as preop Surgeon: Lauryn Trejo MD Anesthesiologist: See anesthesia Anesthesia: Mac Implant: Integra bilayer 5 x 5 cm graft Consent: The patient was informed of the risks and benefits of the procedure. These include but are not limited to complications of anesthesia, postoperative infection, incomplete relief of symptoms, recurrence of symptoms, damage to blood vessels, nerves and tendons, deep venous thrombosis, pulmonary embolism and possible need for repeat surgery in the future. Complications: None Estimated Blood Loss: Minimal Fluids: See anesthesia Findings: Consistent with diagnosis Indications for Surgery: Worsening foot wound Name of Procedure Performed 1. Right foot I&D (08845) 2. Right foot placement of graft (37869) Procedure Details Procedure Details: PRE-PROCEDURE INFORMATION: In the pre-op holding area, the extremity to be operated on was clearly marked and the patient verified correct laterality of the marking. The patient was transferred to the OR table and placed in a supine position. A timeout was performed in which identification of the correct patient, procedure, location, and materials was done. The right foot and leg were prepped and draped in normal sterile fashion. DESCRIPTION OF PROCEDURE: Attention was directed to the right where previous incision was made. An incision was made over this area and was deepened through blunt dissection. The incision was deepened to the level of abscesses. Care was taken to the dissection to avoid any neurovascular and tendinous structures. The incision was deepened to the of the the abscess with appeared to be purulent fluid consistent with pus. All necrotic tissue was removed with rongeur and sharp dissection. After the abscess was drained, the area was irrigated with 3 L normal saline using cysto tubing. A 5 x 5 cm Integra bilayer graft was then stapled to the wound. Xeroform, 4x4s, ABD were then placed on the graft. POSTOPERATIVE INFORMATION: The patient tolerated the above noted procedure and anesthesia well and was transferred to the PACU with vital signs stable, and vascular status intact with capillary refill intact to all digits. Recommend discharged home on 2 weeks of p.o. antibiotics. Patient will follow up with me in 1 week. Keep dressings clean dry and intact until 1st visit. Minimal weight-bearing on the foot. Specimen: Right foot soft tissue mass Condition Good Disposition Still a Patient Visit Coding Podiatry Date of Service if different f: May 09, 2025 Billing Provider: LAURYN TREJO DPM Podiatry Common Visit Codes: PROCEDURE ONLY LAURYN TREJO DPM May 09, 2025 12:23
[2025-05-09] MEDS ORDERED: HYDROMORPHONE HCL 1 MG/ML INJ IV PRN (12:45)
[2025-05-09] MEDS ORDERED: ONDANSETRON HCL 4 MG/2 ML VIAL IV PRN (12:45)
[2025-05-09] MEDS: KETOROLAC TROMETH 30 MG/ML 1ML VIAL IV ONE (12:45)
[2025-05-09] MEDS ORDERED: METOCLOPRAMIDE HCL 5MG/ml INJ 2ml VIAL IV PRN (12:45)
[2025-05-09] MEDS ORDERED: hydrALAZINE HCL 20 MG/ML VL IV PRN (12:45)
--- NOTE | 2025-05-09 12:46 | DVHDSRES ---
Discharge Summary Date of Admission Resident Creating Document: JULITA AQUINO RESIDENT May 04, 2025 at 21:57 Date of Discharge: May 09, 2025 Admitting Diagnosis Acute right foot osteomyelitis with abscess Labs/Diagnostic Data: Laboratory Results Test 05/09/25 11:40 05/09/25 02:30 05/07/25 17:51 05/07/25 06:30 POC Glucose 186 mg/dl (70-106) White Blood Count 4.8 10^3/uL (4.4-10.8) Red Blood Count 3.57 10^6/uL (4.0-5.20) Hemoglobin 10.4 g/dL (12.2-16.2) Hematocrit 31.4 % (36.0-46.0) Mean Corpuscular Volume 88.0 fL (80.0-100.0) Mean Corpuscular Hemoglobin 29.2 pg (28.0-32.0) Mean Corpuscular Hemoglobin Concent 33.2 g/dL (32.0-36.0) Red Cell Distribution Width 13.5 % (11.8-14.3) Platelet Count 305 10^3/uL (140-450) Mean Platelet Volume 8.4 fL (6.9-10.8) Neutrophils (%) (Auto) 64.4 % (37.0-80.0) Lymphocytes (%) (Auto) 25.0 % (10.0-50.0) Monocytes (%) (Auto) 7.5 % (0.0-12.0) Eosinophils (%) (Auto) 2.5 % (0.0-7.0) Basophils (%) (Auto) 0.6 % (0.0-2.0) Neutrophils # (Auto) 3.1 10 ^3/uL (1.6-8.6) Lymphocytes # (Auto) 1.2 10 ^3/uL (0.4-5.4) Monocytes # (Auto) 0.4 10 ^3/uL (0-1.3) Eosinophils # (Auto) 0.1 10 ^3/uL (0-0.8) Basophils # (Auto) 0 10 ^3/uL (0-0.2) Nucleated Red Blood Cells 0.1 % Erythrocyte Sedimentation Rate 93 mm/hr (0-20) Prothrombin Time 10.3 sec (9.3-11.8) Prothrombin Time INR 0.97 (0.9-1.15) Activated Partial Thromboplast Time 28.2 SEC (24.5-34.5) Sodium Level 141 mmol/L (136-145) Potassium Level 4.3 mmol/L (3.5-5.1) Chloride Level 105 mmol/L (98-107) Carbon Dioxide Level 29 mmol/L (20-31) Anion Gap 7 (5-15) Blood Urea Nitrogen 18 mg/dL (9-23) Creatinine 1.40 mg/dL (0.550-1.02) Glomerular Filtration Rate Calc 48 mL/min (>90) BUN/Creatinine Ratio 12.9 (10.0-20.0) Serum Glucose 231 mg/dL (74-106) Calcium Level 8.6 mg/dL (8.7-10.4) C-Reactive Protein High Sensitivity 2.41 mg/dL (<1.0) Vancomycin Level Trough 8.4 ug/mL (5-10) Magnesium Level 2.0 mg/dL (1.6-2.6) Test 05/06/25 06:12 05/05/25 08:55 05/04/25 18:47 Iron Level 25 ug/dL (50-170) Total Iron Binding Capacity 260 ug/dL (250-425) Percent Iron Saturation 9.6 % (15-50) Ferritin 57.7 ng/mL (10-291) Total Bilirubin 0.4 mg/dL (0.2-1.0) Aspartate Amino Transferase (AST) 16 U/L (13-40) Alanine Aminotransferase (ALT) 12 U/L (7-40) Alkaline Phosphatase 60 U/L (46-116) Total Protein 6.8 g/dL (5.7-8.2) Albumin 3.5 g/dL (3.2-4.8) Urine Color Light-yellow (Yellow) Urine Clarity Clear (Clear) Urine pH 5.5 (5.0-9.0) Urine Specific Emery 1.015 (1.001-1.035) Urine Protein Trace (Negative) Urine Ketones Negative (Negative) Urine Blood Negative /uL (Negative) Urine Nitrite Negative (Negative) Urine Bilirubin Negative (Negative) Urine Urobilinogen Normal mg/dL (Negative) Urine Leukocyte Esterase Negative /uL (Negative) Urine RBC 1 /hpf (0 - 4) Urine Microscopic WBC 4 /HPF (0-5) Urine Squamous Epithelial Cells Few /hpf (<5) Urine Bacteria None seen /hpf (None Seen) Urine Glucose Normal mg/dL (Normal) Urine Opiates Screen Neg (NEGATIVE) Urine Fentanyl Screen Neg (NEGATIVE) Urine Barbiturates Screen Neg (NEGATIVE) Urine Phencyclidine Screen Neg (NEGATIVE) Urine Amphetamines Screen Neg (NEGATIVE) Urine Benzodiazepines Screen Neg (NEGATIVE) Urine Cocaine Screen Neg (NEGATIVE) Urine Cannabinoids Screen Neg (NEGATIVE) Hemoglobin A1c 6.0 % A1C (<5.7) Lactic Acid Level 1.5 mmol/L (0.4-2.0) Phosphorus Level 3.5 mg/dL (2.4-5.1) Vitamin B12 Level 498 pg/mL (211-911) Vitamin D 25-Hydroxy 10.2 ng/mL (30.0-100) Thyroid Stimulating Hormone (TSH) 1.75 uIU/mL (0.55-4.78) Beta HCG, Quantitative < 0.0 mIU/mL (1.5-4.2) Other Laboratory Tests 05/09/25 02:30 Brief Hx & Hospital Course: Ms. Payne is a 40-year-old female with prior medical history of type 2 diabetes mellitus, hypertension, Charcot foot, and previous diabetic foot ulcers, who presents today to the ED with chief complaint of nonhealing wound of the right foot. The patient states that today she had onset of sharp pain of the plantar surface of her right foot, non-radiating, intensity 10/10, aggravated by standing or walking, mildly relieved with the use of tylenol, associated with redness and swelling of the plantar surface of the right foot. Additionally, the patient presented a fever with home temperature reading of 103 F. She was discharged from the this institution on 02/16/2025 due to cellulitis and abscess of the right foot requiring two I and D procedures. Due to persistence of symptoms the patient sought care at the emergency department. On evaluation in the ED, the patient was afebrile, tachycardic, with borderline blood pressures. Initial labs significant for normocytic anemia, neutrophilia, creatinine 1.13, BUN 26, and vitamin-D 10.2. right foot x-ray shows soft tissue prominence along the inferior aspect of the midfoot measuring at least 3.8 x 2.7 cm which could represent fluid collection/abscess, erosive/destructive changes of the 3rd distal phalanx distal tuft which could represent sequelae of infection / osteomyelitis /aggressive process. During hospital course patient admitted with IV antibiotic Zosyn and vancomycin and IV fluid. patient also was seen by Podiatry Dr. Perez on and had incision and drainage and later on of the wound. Wound culture revealed Staphylococcus aureus, interventional Colace, Streptococcus Constellatus, Bacteroides fragilis. The patient is being discharged with oral antibiotic levofloxacin 750 mg p.o. daily for 14 days and rifampin 300 mg p.o. daily for 14 days. Patient was advised to resume her home insulin at previous doses. The patient was advised to follow up with the primary care physician in 1 week and also to follow up with Podiatry in 1 week. Patient's menstrual sent to the pharmacy electronically. The patient was hemodynamically stable on discharge. Operations or Procedures [place] [address] Ph: [phone] DIAGNOSTIC IMAGING Diagnostic Imaging Report : [id number] Signed PATIENT: JOHN HAMPTONT: [id number] UNIT: [id number] : 1985 LOC: [facility] ROOM / BED: [facility] / A AGE / SEX: 40 / F ADM STATUS: ADM IN SERVICE 0129 ORDERING PHYSICIAN: ARIANA RODRIGUEZ RESIDENT PROCEDURE(s): RFTCT - CT R FOOT WO CONTRAST REASON: Evaluation for foot abscess ORDER NUMBER(s): [id number], ACCESSION NUMBER(s): [id number] EXAM: CT CT R FOOT WO CONTRAST INDICATION: Evaluation for foot abscess TECHNIQUE: Axial images of right foot without contrast have been obtained along with coronal and sagittal reformatted images. All CT scans at this facility use dose modulation, iterative reconstruction, and/or weight based dosing when appropriate to reduce radiation dose to as low as reasonably achievable. COMPARISON: XY R FOOT 3 VIEW XRAY on DOS: 05/04/25 FINDINGS: BONES: No CT evidence of an acute fracture or aggressive osseous lesion. significant Charcot arthropathy of the midfoot with the appearance of superior pes planus. Disruption of normal articulation across the tarsometatarsal articulations with significant areas of displacement. No CT evidence of an acute fracture or aggressive focal osseous lesion. Prominent plantar soft tissue ulceration suspected with underlying phlegmon versus drainable fluid collection centered of the subcutaneous adipose tissues of the plantar aspect of the foot measuring up to 4 cm MUSCLES: Fatty atrophy of the intrinsic musculature JOINT SPACES: No tibiotalar joint effusion TENDONS/LIGAMENTS: Limited evaluation however no large area of infectious tenosynovitis OTHER: None. IMPRESSION: 1. Large plantar soft tissue ulceration and/or abscess allowing for limitation. 2. Extensive destructive Charcot midfoot arthropathy ATED BY: JUAN AMARO MD DICTATED DATE/TIME: 05/05/25 124 SIGNED BY: JUAN AMARO MD SIGNED DATE/TIME: 05/05/25 124 CC: [place] [address] Ph: [phone] DIAGNOSTIC IMAGING Diagnostic Imaging Report : [id number] Signed PATIENT: JHON HAMPTONT: [id number] UNIT: [id number] : 1985 LOC: ER ROOM / BED: / AGE / SEX: 40 / F ADM STATUS: REG ER SERVICE 06 ORDERING PHYSICIAN: DAYAN GUTIERREZ MD PROCEDURE(s): RFOOT - R FOOT 3 VIEW XRAY REASON: infected wound r/o osteomyelitis ORDER NUMBER(s): [id number], ACCESSION NUMBER(s): [id number] Indication: infected wound r/o osteomyelitis Technique: XY R FOOT 3 VIEW XRAYXY Comparison: 02/11/2025 FINDINGS/IMPRESSION: Disorganization, dystrophic and destructive changes involving the midfoot. This likely represent sequela of Charcot foot Soft tissue prominence along the inferior aspect of the midfoot measuring at least 3.8 x 2.7 cm which could represent fluid collection/ abscess in the appropriate clinical setting. Widening between the 1st and 2nd metatarsal bases consistent with a chronic Lisfranc ligamentous injury Erosive/destructive changes of the 3rd distal phalanx distal tuft which could represent sequela of infection / osteomyelitis/aggressive process [id number] degenerate changes of the 1st MTP joint. ATED BY: JUAN DANIEL GEORGE MD DICTATED DATE/TIME: 05/04/251852 SIGNED BY: JUAN DANIEL GEORGE MD SIGNED DATE/TIME: 05/04/251852 CC: Condition at Discharge: Good Final Diagnosis/Problems List # right foot osteomyelitis # right foot abscess # right foot diabetic ulcer # right foot swelling and redness likely due to above #JENNA Likey due to [facility] # diabetes mellitus type 2 # hypertension # hyperlipidemia # bilateral Charcot joint Discharge Disposition: Still a Patient Discharge Instruct/Medications Diet: Consistent carbohydrate, Cardiac 2g Na,low cholest Follow Up/Referral: Please follow up your primary care physician in 1 week Please follow up with the discharge clinic with BMP on Friday05/13/2025 Please follow up with the solution specialist Dr. Perez in 1 week Medications: Levofloxacin 750 mg p.o. daily for 14 days Rifampin 300 mg p.o. daily for 14 days Please resume other home medications insulin Lantus and lispro as previous dose Amlodipine 5 mg p.o. daily Resume home medication lisinopril 10 mg p.o. daily Avoid dehydration Scheduled Amlodipine Besylate (Norvasc Tablet), 1 TAB PO DAILY Atorvastatin Calcium (Atorvastatin Calcium), 1 TAB PO DAILY, (Reported) Levofloxacin Hemihydrate (Levofloxacin), 1.5 TAB PO DAILY Lisinopril (Lisinopril), 1 TAB PO DAILY, (Reported) Pantoprazole Sodium Sesquihydr (Pantoprazole Sodium), 20 MG PO DAILY Rifampin (Rifampin), 300 MG PO DAILY Miscellaneous Medications Gabapentin (Gabapentin), PO, (Reported) Insulin Lispro (Insulin Lispro), (Reported) Discharge Statement: "Patient was advised to return to the ER or call 911 if any headaches, dizziness, shortness of breath, chest pain, abdominal pain, bleeding, fevers, or worsening of medical condition. Patient was counseled about treatment plan, medications, possible side effects, patientverbalized understanding. All questions were answered to the best of my ability. This discharge took greater then 30 minutes in planning, reviewing documentation, counseling the patient, and discussing with other team members." ASSESSMENT ASSESSMENT Assessment Same as preop Date of Service: May 09, 2025 Billing Provider: MUSHTAQ MCDOWELL MD Common Visit Codes: 80322-KZM/OBS DISCH DAY >30min JULITA AQUINO RESIDENT May 09, 2025 12:46 MUSHTAQ MCDOWELL MD May 12, 2025 00:07
[2025-05-09] MEDS ORDERED: PANT40T PO (12:49)
[2025-05-09] MEDS ORDERED: AML5T PO (12:49)
[2025-05-09] MEDS ORDERED: LEVO500T91 PO (13:11)
[2025-05-09] MEDS ORDERED: RIFA300C58 PO (13:11)
== END 2025-05-09 17:27 | disposition home or self-care (01) | DRG 312 ==
LOC: ER 17:50 → OVERFLOW 21:57 → EAST 22:56
PROVIDERS: ADMIT Student in an Organized Health Care Education/Training Program; ATTEND Student in an Organized Health Care Education/Training Program
PROC: 0Y9M0ZZ Drainage of Right Foot, Open Approach (ICD-10-PCS; 2025-05-05)
PROC: 0Y9M0ZZ Drainage of Right Foot, Open Approach (ICD-10-PCS; 2025-05-09)
PROC: 0HRMXJZ Replacement of Right Foot Skin with Synthetic Substitute, External Approach (ICD-10-PCS; principal; 2025-05-09 12:02)
DX: E11.69 Type 2 diabetes mellitus with other specified complication (principal); M86.8X7 Other osteomyelitis, ankle and foot; N17.0 Acute kidney failure with tubular necrosis; L03.115 Cellulitis of right lower limb; E11.621 Type 2 diabetes mellitus with foot ulcer; L02.611 Cutaneous abscess of right foot; E11.610 Type 2 diabetes mellitus with diabetic neuropathic arthropathy; Z90.49 Acquired absence of other specified parts of digestive tract; L97.519 Non-pressure chronic ulcer of other part of right foot with unspecified severity; E55.9 Vitamin D deficiency, unspecified; E78.5 Hyperlipidemia, unspecified; I10 Essential (primary) hypertension; Z79.4 Long term (current) use of insulin
CPT/HCPCS: 36415; 73630; 73700; 80048; 80053; 80202; 80307; 81001; 82306; 82607; 82728; 82962; 83036; 83540; 83550; 83605; 83735; 84100; 84443; 84702; 85025; 85610; 85652; 85730; 86141; 86850; 86900; 86901; 87040; 87070; 87075; 87076; 87077; 87186; 87205; 96365; 96372; 96375; 99291; G0378; J1815; J2003; J2250; J2405; J2470; J2543; J2704; J3490